=== PATIENT | male | born 1950 | race Caucasian/White ===

== ENCOUNTER → 2019-02-21 | Outpatient (CLI) | payer MEDICARE, SELFPAY ==
[2019-02-20 15:17] VITALS: BMI 28.0
[2019-02-21 09:44] LABS: Hematocrit 40.3 % (40-54); Hemoglobin 13.3 g/dl (13.0-16.5); Mean Corpuscular Hgb 30.9 pg (27.0-32.0); Mean Corpuscular Volume 93.5 fL (80-94); Mean Platelet Vol. 9.9 fl (6.2-12.0); Platelet Count 218 K/mm3 (150-450); RBC Distribution Width CV 13.3 % (11.6-14.6); RBC Distribution Width SD 45.5 fl (35.1-43.9); Red Blood Count 4.31 M/mm3 (4.6-6.2); White Blood Count 6.9 K/mm3 (4.4-11.0)
[2019-02-21 09:46] LABS: Scan Indicated on CBC? Y/N NO
[2019-02-21 09:51] LABS: International Normalized Ratio 1.7; Prothrombin Time (Protime)PT. 20.2 SECONDS (11.7-14.9)
[2019-02-21 10:14] LABS: BUN 14 mg/dL (7-18); BUN/Creat Ratio 15.3 RATIO (10-20); Creatinine, Serum 0.91 mg/dL (0.70-1.30); EST Glomerular Filtration Rate 87 mL/min (>60); Est Glom Filt Rate - Afr Amer 105 mL/min (>60); Glucose 154 mg/dL (74-106)
[2019-02-21 10:15] LABS: AST(SGOT) 18 U/L (15-37); Alanine Aminotransfer ALT/SGPT 30 U/L (16-61); Alkaline Phosphatase 72 U/L (45-117); Anion Gap 7 (5-15); Bilirubin, Direct 0.19 mg/dL (0.00-0.30); Calcium,Total 8.4 mg/dL (8.5-10.1); Chloride 105 mmol/L (98-107); Cholesterol 110 mg/dL (200); High Density Lipoprotein 44 mg/dL; Potassium 3.4 mmol/L (3.5-5.1); Sodium Level 144 mmol/L (136-145); T4 Total, Thyroxin 10.2 ug/dL (4.5-12.1); Thyroid Stim Hormone (TSH) 1.37 uIU/mL (0.358-3.74); Triglycerides 58 mg/dL; Very Low Density Lipoprotein 12 mg/dL (5-40)
== END | disposition home or self-care (01) ==
PROVIDERS: Family Provider Family Medicine; PCP Family Medicine; Referring Provider Internal Medicine Cardiovascular Disease; Visit Provider Internal Medicine Cardiovascular Disease
DX: Z01.810 Encounter for preprocedural cardiovascular examination (principal); I51.89 Other ill-defined heart diseases; R06.09 Other forms of dyspnea; R06.01 Orthopnea; R06.02 Shortness of breath; E78.5 Hyperlipidemia, unspecified; I34.0 Nonrheumatic mitral (valve) insufficiency; R07.9 Chest pain, unspecified
CPT/HCPCS: 36415; 80048; 80061; 80076; 84436; 84443; 85027; 85610

== ENCOUNTER → 2019-03-13 | Outpatient (CLI) | payer MEDICARE, SELFPAY ==
[2019-02-20 15:17] VITALS: BMI 28.0
[2019-03-12 09:33] VITALS: BMI 26.6
--- NOTE | 2019-03-15 08:08 | PFT ---
INTRODUCTION: The patient is a 69-year-old male that presents for pulmonary function studies secondary to a diagnosis of shortness of breath. Respiratory therapy reports good patient effort. Bronchodilators were used during testing. INTERPRETATION: Forced expiration spirometry demonstrates the presence of a severe large airways obstructive ventilatory defect. There was a significant response to aerosolized bronchodilators noted, based upon change in FEV1. Spirograms are of good quality and do not plateau indicating slow emptying of the lungs. Body plethysmography was performed and reveals a decreased TLC to 4.35 L, 62% of predicted, indicative of a moderate restrictive ventilatory impairment. The remainder of the lung volumes are symmetrically reduced. Diffusing capacity by single breath CO is mildly reduced at 63% of predicted. IMPRESSION: Partially reversible severe mixed ventilatory defect with an associated mild reduction in diffusing capacity. There are no previous pulmonary function studies available for comparison.
== END | disposition home or self-care (01) ==
LOC: PSN 07:17
PROVIDERS: Family Provider Family Medicine; PCP Family Medicine; Referring Provider Internal Medicine Cardiovascular Disease; Visit Provider Internal Medicine Cardiovascular Disease
DX: Z01.810 Encounter for preprocedural cardiovascular examination (principal); R06.02 Shortness of breath; R06.09 Other forms of dyspnea; J44.9 Chronic obstructive pulmonary disease, unspecified; I50.20 Unspecified systolic (congestive) heart failure; I51.89 Other ill-defined heart diseases
CPT/HCPCS: 94060; 94726; 94729

== ENCOUNTER 2019-03-14 06:52 | Day surgery (SDC) | payer MEDICARE, SELFPAY ==
[2019-02-20 15:17] VITALS: BMI 28.0
--- NOTE | 2019-03-12 10:36 | RAD_ITS ---
STUDY: X-RAY CHEST REASON FOR EXAM: Male, 69 years old. Preop, decreased ejection fraction, shortness of breath, mitral insufficiency TECHNIQUE: PA and lateral views of the chest. COMPARISON: None. FINDINGS: The lungs are clear and expanded. There are [id number] bilateral effusions, right side larger than left. Normal size heart. There is a right infrahilar density measuring 4.7 x 3.4 cm. Normal visualized pulmonary arteries. There are calcified plaques of the thoracic aorta. There are diffuse degenerative changes of the visualized thoracic spine. Normal visualized ribs, clavicles, and shoulders. There is no demonstrated abnormality of the visualized soft tissue structures of the upper abdomen. RAD/Chest PA and Lateral IMPRESSION: Small to moderate bilateral effusions, right side larger than left. Right infrahilar density measuring 4.7 x 3.4 cm which may represent vascular structure. Mass cannot be excluded. Comparison with any previous chest films is recommended at this time. Calcified plaques of the thoracic aorta. Degenerative changes of the thoracic spine. Electronically Signed: Gabo Shaw MD at 16:51 EDT , Service support ,
[2019-03-13 08:48] VITALS: BMI 28.0
[2019-03-13 13:28] VITALS: BMI 26.6
[2019-03-14 07:10] LABS: Prothrombin Time Fingerstick 15.1 SEC (11.9-14.4)
--- NOTE | 2019-03-14 10:52 | CL.D_ITS ---
Patient Name: JENY SANTOYO Study Date: 03/14/2019 Performing: Scott Gar MD Ht: 72.04 inches 183 cm : 1950 Wt: 207.23 lbs 94 kg Age: 69 Gender: male BSA: 2.16 PROCEDURE(S) PERFORMED [id number]/LHC/COR/LV CLINICAL PROFILE AND INDICATIONS Indications: Suspected CAD, LV Dysfunction Heart Failure: NYHA Class: 1, Newly Diagnosed: No, Heart Failure Type: Systolic Stress/Imaging Date: 06/29/2004 CAD Presentations: Unstable angina. Comorbidities/Risk Factors: Current/Recent Smoker (< 1year) Hypertension Dyslipidemia Prior CHF Chronic Lung Disease CONCLUSIONS Normal coronary arteries Global LV systolic dysfunction- Severe LVEF: by LV gram 10 % Cardiomyopathy: Non-ischemic Right heart pressures - moderately elevated RECOMMENDATIONS Management as per referring [facility] Pt is at moderate to high risk for sonido surgery. Restart xarelto on Consider starting amiodarone after sonido surgery and attempting DCCV. Manual sheath removal. Etoh and tob cessation. DESCRIPTION OF PROCEDURE The patient arrived to the procedure lab. The risks and benefits of the procedure as well as a full d escription of our services here and current unavailability of surgical backup were fully explained to the patient and/or their significant other prior to the catheterization. The Timeout was completed, verifying the correct patient and procedure. The patient's procedural site was prepped and draped in the usual fashion. Local anesthetic was given subcutaneously to right groin region with Lidocaine 2%. Using a modified Seldinger technique, arterial access was obtained via the right femoral artery, a 4 Fr sheath was inserted Venous access was obtained via the right femoral vein, a 7Fr sheath was insert ed. A 7Fr thermal dilution catheter was inserted and right heart pressures were recorded, it was then advanced to PA position for cardiac outputs. Thermal dilution cardiac outputs were then recorded. O2 saturations were then obtained. Simultaneous pressures were then recorded. The Thermal dilution catheter was then removed. Left Ventriculography was performed in STARR projection using a 4 F r. Pigtail catheter. LV to AO pullback pressures were then recorded. Left Coronary Artery selective a ngiography was performed in multiple views using a 4 Fr. JL5 catheter. Right Coronary Artery selectiv e angiography was then performed in multiple views using a 4 Fr. 3DRC catheter.The arterial sheath wa s pulled and manual compression applied until hemostasis is achieved. CORONARY ANGIOGRAPHY DOMINANCE: Right Dominant LEFT HEART ASSESSMENT Left Ventricular Ejection Fraction: by LV Gram 10 % Global Hypokinesis - Severe LVEDP: 22 mmHg Depressed Left Ventricular systolic function RIGHT HEART ASSESSMENT Thermal CO: 5.34 Thermal CI: 2.47 Asim CO: 3.69 Asim CI: 1.71 PW: /22 16 PA: 44/15 25 RV: 40/-7 -1 RA: /1 0 PVR: 135 Right Heart pressures - elevated Pulmonary Hypertension Moderate LEFT MAIN: Angiographically normal LEFT ANTERIOR DESCENDING ARTERY: Angiographically normal CIRCUMFLEX ARTERY: Angiographically normal RIGHT CORONARY ARTERY: Angiographically normal COMPLICATIONS No Complications PROCEDURE MEDICATIONS Oxygen: 2 L/min via nasal cannula SUMMARY OF HEMODYNAMIC DATA Time AIR REST ECG 08:09:06 RA /1 (0) 10:16:02 RV 40/-7, -1 10:16:17 PA 44/15 (25) PA 10:22:57 PW /22 (16) PV 10:23:09 LV 133/-3, 12 10:27:18 LV 125/-1, 22 10:27:25 LV 128/-2, 21 10:27:58 PW /32 (26) 10:27:58 LV 131/-1, 20 10:28:44 PA 49/29 (38) 10:28:44 LV 132/-2, 21 10:32:14 RV 48/1, 5 10:32:14 LV 132/8, 26 10:33:19 LV 132/-2, 23 10:33:26 LVp 134/-6, 23 10:33:31 AOp 132/90 (106) 10:33:36 AO 114/87 (100) SA 10:36:09 Type SV CO (l/m) CI (l/m/ HR Time AIR REST Thermal 54.50 5.34 2.47 98 08:09:06 Asim 37.70 3.69 1.71 98 08:09:06 Label % O2 Pres/Loc Time AIR REST AO 92 PV 10:37:57 PA 49 PA 10:38:05 Signed By Scott Gar MD On 03/14/2019 10:51:47 Scott Gar MD
[2019-03-14 14:16] LABS: Base Excess 2 mmol/L (-2 to +2); Bicarbonate 25.7 mmol/L (22-26); Blood Gas Specimen Type ART; PO2 60 mmHG (75-100); SO2 92 % (95-99); Total Carbon Dioxide 27 mmol/L; pCO2 36.4 mmHg (35-45); pH 7.46 (7.35-7.45)
[2019-03-14 14:16] LABS: Blood Gas Specimen Type VEN; VBG BASE EXCESS 4 mmol/L (-1.0-3.5); VBG Bicarbonate 29 mmol/L (22-26); VBG Oxygen Content 30 mmol/L (23-33); VBG PO2 26 mmHg (25-40); VBG SO2 49 % (50-70); VBG pCO2 44.3 mmHg (41-51); VBG pH 7.42 (7.32-7.42)
[2019-03-14 14:16] LABS: Blood Gas Specimen Type VEN; VBG BASE EXCESS 4 mmol/L (-1.0-3.5); VBG Bicarbonate 28 mmol/L (22-26); VBG Oxygen Content 30 mmol/L (23-33); VBG PO2 33 mmHg (25-40); VBG SO2 64 % (50-70); VBG pCO2 43.1 mmHg (41-51); VBG pH 7.43 (7.32-7.42)
== END 2019-03-14 15:05 | disposition home or self-care (01) ==
PROVIDERS: Family Provider Family Medicine; PCP Family Medicine; Referring Provider Internal Medicine Cardiovascular Disease; Visit Provider Internal Medicine Cardiovascular Disease
DX: I42.9 Cardiomyopathy, unspecified (principal); I48.91 Unspecified atrial fibrillation; E78.5 Hyperlipidemia, unspecified; J44.9 Chronic obstructive pulmonary disease, unspecified; I11.0 Hypertensive heart disease with heart failure; I50.21 Acute systolic (congestive) heart failure; M19.90 Unspecified osteoarthritis, unspecified site; F17.210 Nicotine dependence, cigarettes, uncomplicated; Z79.899 Other long term (current) drug therapy; Z79.02 Long term (current) use of antithrombotics/antiplatelets
CPT/HCPCS: 36416; 71046; 82803; 85610; 93460; J7040; C1751; C1769; C1894; Q9967

== ENCOUNTER → 2019-04-02 | Outpatient (CLI) | payer MEDICARE, SELFPAY ==
[2019-03-13 13:28] VITALS: BMI 26.6
--- NOTE | 2019-04-02 08:00 | CT_ITS ---
STUDY: CT CHEST WITH CONTRAST REASON FOR EXAM: Male, 69 years old. Right hilar density RADIATION DOSAGE (If Supplied By Facility): CTDIvol = ( 15.58 ) mGy, DLP = ( 550.10 ) mGycm TECHNIQUE: Transaxial imaging was performed following intravenous administration of 100 IV Isovue 300. Individualized dose optimization techniques were used for this CT. COMPARISON: Previous plain film FINDINGS: Lung windows show underlying emphysema with bleb formation noted in both upper lobes. There are free-flowing bilateral pleural effusions and bibasilar atelectasis larger on the right than the left and consolidation in the right lung base. There is no suspicious right hilar density the right pulmonary artery is mildly enlarged and I suspect that the previously noted density in the chest x-ray from earlier today represents superimposed vascular structures. The soft tissue windows show normal-appearing thyroid gland. There are scattered subcentimeter axillary and mediastinal lymph nodes. There are calcified coronary vessels. There is cardiomegaly. There is evidence of chronic bronchitis. Normal enhanced pulmonary arteries. Normal aorta arch and descending thoracic aorta. There are multi-level degenerative changes of the thoracic spine. Limited cuts through the upper abdomen show renal cysts. CT/Chest WITH Contrast IMPRESSION: Underlying emphysema with bleb formation in both upper lobes with bilateral free-flowing pleural effusions, right greater than left and bibasilar atelectasis also right greater than left. The right upper and lower lobe pulmonary arteries are prominent, and I suspect the density noted on plain film represents confluence of their shadows. There is no suspicious noncalcified mass Scattered subcentimeter axillary and mediastinal lymph nodes Chronic bronchitis Degenerative bony changes Electronically Signed: Markell Vega MD at 17:54 EDT , Service support ,
== END | disposition home or self-care (01) ==
LOC: CT 07:59
PROVIDERS: Family Provider Family Medicine; PCP Family Medicine; Referring Provider Nurse Practitioner Family; Visit Provider Nurse Practitioner Family
DX: J44.9 Chronic obstructive pulmonary disease, unspecified (principal); R06.09 Other forms of dyspnea; I42.9 Cardiomyopathy, unspecified
CPT/HCPCS: 71260; Q9967

== ENCOUNTER 2019-05-04 10:33 | Day surgery (SDC) | payer MEDICARE, SELFPAY ==
[2019-04-27 13:07] VITALS: BMI 27.9
[2019-05-01 12:19] LABS: Anion Gap 7 (5-15); BUN 19 mg/dL (7-18); BUN/Creat Ratio 22.5 RATIO (10-20); Calcium,Total 8.7 mg/dL (8.5-10.1); Chloride 104 mmol/L (98-107); Creatinine, Serum 0.84 mg/dL (0.70-1.30); EST Glomerular Filtration Rate 95 mL/min (>60); Est Glom Filt Rate - Afr Amer 115 mL/min (>60); Glucose 119 mg/dL (74-106); Potassium 3.1 mmol/L (3.5-5.1); Sodium Level 140 mmol/L (136-145)
[2019-05-04 10:56] LABS: Potassium 3.6 mmol/L (3.5-5.1)
--- NOTE | 2019-05-04 11:39 | CARDIOVERS_ITS ---
Cardioversion Cardioversion: Cardioversion: Patient was brought to the [facility] holding area in the fasting state. The risks/benefits of the procedure were thoroughly explained the patient and informed consent was obtained. Resting EKG: Atrial fibrillation with controlled ventricular response. Cardioversion: The defibrillator pads were placed in the AP position. With the assistance of Dr. Abraham Matos the patient was given several milligrams of IV etomidate. Once adequate sedation was obtained the patient received a single 200 J biphasic synchronized shock which converted him from atrial fibrillation to normal sinus rhythm. This was confirmed with EKG analysis. Patient spontaneously awoke and moved all 4 extremities. Conclusions: Successful DC cardioversion with a single 200 J biphasic shock. This converted him from atrial flutter relation to normal sinus rhythm. His rhythm remained durable. Would recommend continuing anticoagulation therapy going forward. If the patient reverts back to atrial fibrillation and since he is no longer drinking, I would recommend amiodarone assisted DC cardioversion in the future. If he remains in normal sinus rhythm, we will repeat echocardiogram in 4 months time to determine if his LV function has improved with cardiac resynchronization. No complications.
--- NOTE | 2019-05-04 11:42 | HP.PCM_ITS ---
Problem List (1) Pre-operative cardiovascular examination, left ventricular ejection fraction < 35% Status: Acute (2) Systolic congestive heart failure Status: Acute (3) Atrial fibrillation Status: Chronic Qualifiers: Comment: Pre-op ekg done @ [facility] showed new onset a-fib with RVR, HR 110 bpm on 12/04/2018. History and Physical Date of Admission: 05/04/19 [facility] [address] [place] [address] OFFICE VISIT Date of Service: 04/27/19 MR#:[id number]:[id number] Name: JENY SANTOYO [facility] #:[id number] : 1950 Provider: ELPIDIO Back Age/Sex: 69/M Location:[facility] [place] Status:Signed HPI HPI History of Present Illness Surgical H&P: Yes Details: Mr. Bartholomew is a very pleasant 69-year-old gentleman, nondiabetic, former heavy alcohol user, with previously known cardiomyopathy with an EF around 40% by echocardiogram. He was referred to us for preoperative stratification for shoulder surgery by Dr. Luna. He underwent echocardiogram on 01/16/2019 and noted to have ejection fraction 20-25% and RVSP of 29 mmHg. In addition he has a history of atrial fibrillation diagnosed around November 2008 and is on anticoagulation therapy. Patient had a stress test on 07/03/2004 which demonstrated small focal anterior and inferior apical scar no reversible ischemia. 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 He used to drink about 12 pack/day for the past 50 years since being in [place]. 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 He has never had pulmonary function test. It is uncertain whether he has sleep apnea but he does snore excessively, and sometimes wakes himself up with his own snoring. He denies chest, arm, jaw, or neck discomfort. His exercise tolerance is stable. He denies symptoms of palpitations, lightheadedness, dizziness, near syncope, or syncopal episodes. He states states SOB with exercising. He denies claudication issues. He states bilateral lower extremity edema. He denies orthopnea, PND, blood in urine, blood in stool, or myalgia. He states fluctuating fatigue based on activity level. Intake Vital Signs 04/27/19 Height 6 ft 04/27/19 Weight: 206 lb 04/27/19 Body Mass Index (BMI) 27.9 04/27/19 Blood Pressure 124/86 H 04/27/19 Blood Pressure Location Lt brachial 04/27/19 Respiratory Rate 18 04/27/19 Pulse Rate 89 04/27/19 Pulse Source Monitor 04/27/19 Pulse Ox 96 Intake Visit Reasons: 3 wk f/up Systems Management Consultant Required: No Accompanied by: Is patient in pain?: No Allergies No Known Allergies Allergy (Verified 04/27/19 13:07) Medications benazepril 10 mg tablet 10 mg PO DAILY 02/14/19 [History Confirmed 04/27/19] duloxetine 60 mg capsule,delayed release 60 mg PO DAILY 02/14/19 [History Confirmed 04/27/19] gabapentin 300 mg capsule 600 mg PO TID cap 02/14/19 [History Confirmed 04/27/19] ibuprofen 200 mg capsule 200 mg PO Q6H PRN cap 02/14/19 [History Confirmed 04/27/19] lorazepam 0.5 mg tablet 0.5 mg PO Q6H PRN tab 02/14/19 [History Confirmed 04/27/19] lovastatin 40 mg tablet 40 mg PO DAILY 02/14/19 [History Confirmed 04/27/19] naproxen 500 mg tablet 500 mg PO BID PRN 02/14/19 [History Confirmed 04/27/19] spironolactone 25 mg tablet 25 mg PO DAILY 02/14/19 [History Confirmed 04/27/19] tamsulosin 0.4 mg capsule 0.8 mg PO DAILY cap 02/14/19 [History Confirmed 04/27/19] bumetanide 1 mg tablet 1 mg PO BID #60 tab 02/20/19 [Rx Confirmed 04/27/19] aspirin 81 mg tablet,delayed release 81 mg PO DAILY 04/06/19 [History Confirmed 04/27/19] bumetanide 2 mg tablet 2 mg PO BID #60 tab 04/27/19 [Rx Confirmed 04/27/19] carvedilol 6.25 mg tablet 6.25 mg PO BID #180 tab 04/27/19 [Rx] potassium chloride ER 20 mEq tablet,extended release 20 meq PO DAILY #90 tab 04/27/19 [Rx] rivaroxaban 20 mg tablet 20 mg PO DAILY #90 tab 04/27/19 [Rx] PFSH Medical History (Updated 04/06/19 @ 12:42 by JEANA ChanC) Pre-operative cardiovascular examination, left ventricular ejection fraction < 35% (Acute) Nonrheumatic mitral (valve) insufficiency (Chronic) Chest pain (Acute) Dyspnea on exertion (Chronic) Shortness of breath (Acute) Orthopnea (Acute) Edema (Acute) Atrial fibrillation (Chronic) Cardiomyopathy (Chronic) Systolic congestive heart failure (Acute) Fatigue (Acute) Tobacco use (Chronic) Hypertension (Chronic) COPD (chronic obstructive pulmonary disease) (Chronic) Hyperlipidemia (Chronic) Osteoarthritis (Chronic) Strain of left rotator cuff capsule (Chronic) Surgical History (Updated 03/14/19 @ 11:33 by Renetta Melgoza) History of bilateral inguinal hernia repair (Chronic) History of lumbar laminectomy (Chronic) Family History (Updated 02/14/19 @ 11:29 by Renetta Melgoza) Mother CVA (cerebral vascular accident) Hypertension Social History (Updated 04/27/19 @ 15:00 by JEANA ChanC) Smoking Status: Current every day smoker tobacco type: cigarettes ROS Const Const: Positive for fatigue; negative for weakness, body ache, fever(s) or chills ENT ENT: Negative for dizziness Cardio Chest Pain: No Palpitations: No Edema: Bilateral Muscle aches with walking: None Resp Respiratory: Negative for SOB with activity, SOB at rest, SOB orthopnea\SOB lying down or paroxysmal nocturnal dyspnea GI GI: Negative nausea, vomiting blood/hematemesis, bright, red blood in stools or black,tarry stools : Negative for hematuria or frequent nighttime urination/ nocturia Musc Musc: Negative for muscle aches/ myalgia Skin Skin: Negative non-healing lesions or rash Neuro Neuro: Negative for dizziness, lightheadedness, near syncope, syncope, or thostatic symptoms or weakness Endo Endo: Positive for fatigue Allergy Allergy/Immunology: Negative for rash Cardiology Exam Const Appearance: cooperative, healthy appearing and no acute distress Nutritional Appearance: well nourished and overweight Orientation: alert, oriented x3 and oriented to person Head Head: normal to inspection, normocephalic and atraumatic Ears: hearing grossly normal bilaterally Nose: external nose normal Face and Sinus: face symmetric Mouth: oral mucosae normal Eyes General: appearance normal, both eyes and all related structures Eyelids: eyelids normal Conjunctivae: conjunctivae normal Pupils: PERRL and normal by confrontation EOM: EOM intact bilaterally Neck Neck: normal visual inspection and full ROM Carotids: normal carotid upstroke Chest Chest inspection: normal inspection of the chest, symmetric chest movement and normal respiratory effort Auscultation: Bilateral: Diminished Lung Sounds Cardio Palpation: normal PMI Rate: regular rate Rhythm: irregular rhythm and irregularly irregular Heart sounds: S2 normal and murmur; negative rub or gallop Murmur: Grade 2/6 and holosystolic GI GI: normal to inspection Neuro General: alert, awake, oriented x3, CN's II-XI intact bilaterally and moves all extremities Skin Skin: no rashes or lesions noted Extremities Pulses: Normal: Right Posterior Tibial Pulse, Left Posterior Tibial Pulse, Right Radial Pulse, Left Radial Pulse Lower Extremity Edema: Trace: Bilateral Psych Psychological: normal affect Assessment & Plan 1. Other cardiomyopathy I42.8 Ef decreased from 47% in 2004 to 20-25% per echo 01/16/2019. Small focal anterior and inferior apical scar on stress test done 07/03/2004 @ [facility] Plan His heart catheterization from February 2019 showed ejection fraction of 60% and angiographically normal coronary arteries. His pulmonary pressure was noted to be elevated consistent with moderate pulmonary hypertension. He denies any symptoms today consistent with acute congestive heart failure. He will continue with current beta-cecilia, DANNY inhibitor, and diuretics. We will continue to monitor. He does acknowledge lower extremity edema. He is asked to increase his Bumex to 2 mg p.o. twice daily for 3 days and contact our office with an update. Orders Orders: Cardioversion Today Basic Metabolic Profile (BMP) Today 2. Chronic atrial fibrillation I48.2 Pre-op ekg done @ [facility] showed new onset a-fib with RVR, HR 110 bpm on 12/04/2018. Plan His EKG today in office shows atrial fibrillation rate of 84 bpm and a QTC of 432 with occasional ectopic ventricular beat. His most recent heart catheterization from February 2019 revealed ejection fraction of 10% and angiographically normal coronary arteries. His heart rate remains well controlled. He will proceed with cardioversion. Hopefully by maintaining a regular rhythm this will improve his overall LVEF. If there is is unsuccessful we can consider cardioversion with antiarrhythmic medication. And ultimately if this too is unsuccessful we can consider electrophysiology consult for ablation procedure. Orders Orders: 12 Lead EKG performed by [facility] Today Cardioversion Today Basic Metabolic Profile (BMP) Today 3. Hypertension, unspecified type I10 Plan Patient's blood pressure is well-controlled. We will continue to monitor. We will not make any medication regimen changes. 4. Hyperlipidemia, unspecified hyperlipidemia type E78.5 Plan Lipid panel from January 2019 showed cholesterol: 110, HDL: 44, LDL: 54, and triglycerides: 58. He will continue current statin medication. We will continue to monitor. 5. Dyspnea on exertion R06.09 Plan He continues to have shortness of breath on exertion. This is not worsening. Hopefully this also improves with diuretic adjustment. This may also improve with sinus rhythm. Orders Orders: Cardioversion Today Basic Metabolic Profile (BMP) Today Plan Detail Other Medications New: bumetanide 2 mg PO BID 60 tabs 11RF Additional Comments Patient will undergo cardioversion with Dr. Gar. Thank you for allowing us to participate in the patients plan of care, if you have any questions please do not hesitate to call. This note was generated using a voice recognition system and there may be incorrect words, spelling or punctuation that were not noted when reviewing the office note prior to saving. Coding Level of Care Code Off vis,est,level 4 Diagnoses Other cardiomyopathy I42.8 Cardiomyopathy type: other Chronic atrial fibrillation I48.2 Atrial fibrillation type: chronic Hypertension, unspecified type I10 Hypertension type: unspecified Hyperlipidemia, unspecified hyperlipidemia type E78.5 Hyperlipidemia type: unspecified Dyspnea on exertion R06.09 Coding Level of Care Code Off vis,est,level 4 Diagnoses Other cardiomyopathy I42.8 Cardiomyopathy type: other Chronic atrial fibrillation I48.2 Atrial fibrillation type: chronic Hypertension, unspecified type I10 Hypertension type: unspecified Hyperlipidemia, unspecified hyperlipidemia type E78.5 Hyperlipidemia type: unspecified Dyspnea on exertion R06.09 Supplemental Info Supplemental Information Heart catheterization from 03/14/2019: CORONARY ANGIOGRAPHY DOMINANCE: Right Dominant LEFT HEART ASSESSMENT Left Ventricular Ejection Fraction: by LV Gram 10 % Global Hypokinesis - Severe LVEDP: 22 mmHg Depressed Left Ventricular systolic function RIGHT HEART ASSESSMENT Thermal CO: 5.34 Thermal CI: 2.47 Asim CO: 3.69 Asim CI: 1.71 PW: /22 16 PA: 44/15 25 RV: 40/-7 -1 RA: / 0 PVR: 135 Right Heart pressures - elevated Pulmonary Hypertension Moderate LEFT MAIN: Angiographically normal LEFT ANTERIOR DESCENDING ARTERY: Angiographically normal CIRCUMFLEX ARTERY: Angiographically normal RIGHT CORONARY ARTERY: Angiographically normal Labs LDL Cholesterol 54 mg/dL (0-130) 02/21/19 HDL Cholesterol 44 mg/dL (40-) 02/21/19 Triglycerides 58 mg/dL (-199) 02/21/19 VLDL Cholesterol 12 mg/dL (5-40) 02/21/19 Diagnostics Electrocardiogram 04/27/19 Cardiac Catheterization 03/14/19 Chest X-Ray 03/12/19 Pulmonary Pulmonary Function Test 03/15/19 04/27/19 1500<Electronically signed by Pradeep MAGALLANES> Date Pradeep MAGALLANES Addendum: Patient arrived to [facility] in the fasting state. The risks/benefits of the DC cardioversion were thoroughly explained the patient and informed consent was obtained. The patient has had no interim change of his history and physical since her last visit. We will proceed with DC cardioversion. Cosigner Signature:Date (if applicable) CC: Reymundo Zavala MD ~
--- NOTE | 2019-05-04 12:21 | PCM.OP.PRO ---
Problem List (1) Edema Status: Acute (2) Orthopnea Status: Acute (3) Systolic congestive heart failure Status: Acute (4) Atrial fibrillation Status: Chronic Qualifiers: Comment: Pre-op ekg done @ [place] showed new onset a-fib with RVR, HR 110 bpm on 12/04/2018. (5) COPD (chronic obstructive pulmonary disease) Status: Chronic (6) Cardiomyopathy Status: Chronic Qualifiers: Cardiomyopathy type: other Qualified Code(s): I42.8 - Other cardiomyopathies Comment: Ef decreased from 47% in 2003 to 20-25% per echo 01/16/2019. Small focal anterior and inferior apical scar on stress test done 07/03/2004 @ [place] (7) Hyperlipidemia Status: Chronic Qualifiers: Hyperlipidemia type: unspecified Qualified Code(s): E78.5 - Hyperlipidemia, unspecified (8) Hypertension Status: Chronic Qualifiers: Hypertension type: unspecified Qualified Code(s): I10 - Essential (primary) hypertension (9) Nonrheumatic mitral (valve) insufficiency Status: Chronic Comment: Mild per echo 01/16/2019 (10) Tobacco use Status: Chronic Procedure Report Date of Procedure: 05/04/19 - Conscious sedation CONSCIOUS SEDATION REPORT BRIEF HISTORY OF PRESENT ILLNESS: The patient is a 69-year-old male who presented to [facility] for an elective outpatient cardioversion due to underlying atrial fibrillation. The patient reports no PO intake since midnight. The patient does not have a history of obstructive sleep apnea. The patient reports a history of smoking and COPD. The patient denies any recent constitutional symptoms such as fevers, chills, nausea or vomiting. The patient denies previous anesthetic complications. Patient's ejection fraction has been estimated at 20 to 40%. PHYSICAL EXAMINATION: VITAL SIGNS: Reviewed and were acceptable. GENERAL: The patient is a male, in no apparent distress, speaking in full sentences. HEENT: Normocephalic, atraumatic. Mucous membranes are moist and pink. Good mouth opening noted. Trachea is midline. Good neck mobility. MP II CHEST: S1, S2 irregularly irregular. No murmurs, rubs or gallops were noted. LUNGS: Clear to auscultation bilaterally without appreciable wheezes, rales or rhonchi. ABDOMEN: Soft, nontender, nondistended. Positive bowel sounds. EXTREMITIES: There is no clubbing, cyanosis. 2+ lower extremity edema appreciated. ASA Class: II DESCRIPTION OF PROCEDURE: After confirmation of informed consent, the patient's anesthesia plan was reviewed in detail. Etomidate was chosen. Risks and benefits were reviewed and the patient agreed to proceed. At 11:18 AM, the patient was given 4 mg of etomidate. The patient required a total of 10 mg of etomidate throughout the procedure to achieve appropriate sedation. The patient achieved an appropriate level of sedation and received 1 attempt synchronized cardioversion, at [address] Gar at the bedside. This was successful in achieving normal sinus rhythm. The patient was monitored until 11:30 AM, at which time the patient reached their baseline mental status and function. The patient tolerated the procedure well. COMPLICATIONS: None ESTIMATED BLOOD LOSS: None RECOMMENDATIONS: Okay to recover in usual fashion. Code Visit 9xxxx: Other Procedure See Report - 98375 -12 minutes conscious sedation
== END 2019-05-04 12:50 | disposition home or self-care (01) ==
PROVIDERS: Nurse Practitioner Family; Family Provider Family Medicine; PCP Family Medicine; Referring Provider Internal Medicine Cardiovascular Disease; Visit Provider Internal Medicine Cardiovascular Disease
DX: I48.2 Chronic atrial fibrillation (principal); I11.0 Hypertensive heart disease with heart failure; I50.21 Acute systolic (congestive) heart failure; J44.9 Chronic obstructive pulmonary disease, unspecified; E78.5 Hyperlipidemia, unspecified; I42.8 Other cardiomyopathies; Z79.899 Other long term (current) drug therapy; Z79.82 Long term (current) use of aspirin; M19.90 Unspecified osteoarthritis, unspecified site; F17.210 Nicotine dependence, cigarettes, uncomplicated
CPT/HCPCS: 36415; 80048; 84132; 92960; 93005; J7040

== ENCOUNTER → 2019-05-22 | Outpatient (CLI) | payer MEDICARE, SELFPAY ==
[2019-05-10 09:29] VITALS: BMI 27.1
[2019-05-22 09:30] VITALS: PULSE 72; PULSE 76; PULSE 82; PULSE 83; PULSE 86; PULSE 89; PULSE 91; O2SAT 93; O2SAT 95; O2SAT 96; O2SAT 97; O2SAT 98; O2SAT 99
--- NOTE | 2019-05-23 13:36 | PCM.PSN.6M ---
PSN 6 Minute Walk Test - 6 Minute Walk Test 6 Minute Walk Test: 6 Minute Walk Test PSN:6-Minute Walk Test Start: 05/22/19 10:43 Freq: Status: Active Protocol: [id number].6MINW Document 05/22/19 09:30 [facility] (Rec: 05/22/19 11:23 [facility] [id number]) 6 Minute Walk Test Date Performed 05/22/19 Time Performed 09:30 Height 6 ft Weight: 196 lb Weight in Pounds 196.[address]: Abraham Matos Assistive device used: Cane Pre-test Oxygen Delivery Method Room Air Pulse Ox (%) 98 Pulse Rate (60-100 beats/min) 76 Dyspnea Margret Scale (0-10) 0 Exertion Margret Scale (6-20) 6 1st minute Oxygen Delivery Method Room Air Pulse Ox (%) 96 Pulse Rate (60-100 beats/min) 82 Number of Rests Taken 0 2nd minute Oxygen Delivery Method Room Air Pulse Ox (%) 97 Pulse Rate (60-100 beats/min) 91 Number of Rests Taken 0 3rd minute Oxygen Delivery Method Room Air Pulse Ox (%) 95 Pulse Rate (60-100 beats/min) 86 Number of Rests Taken 0 4th minute Oxygen Delivery Method Room Air Pulse Ox (%) 96 Pulse Rate (60-100 beats/min) 83 Number of Rests Taken 0 5th minute Oxygen Delivery Method Room Air Pulse Ox (%) 93 Pulse Rate (60-100 beats/min) 89 Number of Rests Taken 0 6th minute Oxygen Delivery Method Room Air Pulse Ox (%) 96 Pulse Rate (60-100 beats/min) 89 Number of Rests Taken 0 Post-test Oxygen Delivery Method Room Air Pulse Ox (%) 99 Pulse Rate (60-100 beats/min) 72 Dyspnea Margret Scale (0-10) 0 Exertion Margret Scale (6-20) 12 Number of Rests Taken 0 Full Laps Walked 13 Partial Lap, Number of Tiles Walked 35 Total Distance Walked (ft) 802 - Interpretation Interpretation: The patient ambulated 802 feet over the course of 6 minutes beginning on room air with the use of a cane. Pretesting oxygen saturation was noted to be 98% on room air. With ambulation, the ariela oxygen saturation was 93%. This represents a significant exertional oxygen desaturation. - Recommendations Recommendations: There is no indication for the use of supplemental oxygen at this time. However, close interval follow-up is recommended, given the degree of oxygen desaturation noted during this study.
== END | disposition home or self-care (01) ==
LOC: PSN 09:21
PROVIDERS: Family Provider Family Medicine; PCP Family Medicine; Referring Provider Internal Medicine Critical Care Medicine; Visit Provider Internal Medicine Critical Care Medicine
DX: J90 Pleural effusion, not elsewhere classified (principal); J44.9 Chronic obstructive pulmonary disease, unspecified; I50.22 Chronic systolic (congestive) heart failure
CPT/HCPCS: 94618

== ENCOUNTER → 2019-06-06 | Outpatient (CLI) | payer MEDICARE, SELFPAY ==
[2019-05-10 09:29] VITALS: BMI 27.1
[2019-06-06 11:58] LABS: International Normalized Ratio 1.9; Prothrombin Time (Protime)PT. 21.4 SECONDS (11.7-14.9)
[2019-06-06 12:05] LABS: Anion Gap 6 (5-15); BUN 20 mg/dL (7-18); BUN/Creat Ratio 20.2 RATIO (10-20); Calcium,Total 8.9 mg/dL (8.5-10.1); Chloride 104 mmol/L (98-107); Creatinine, Serum 0.99 mg/dL (0.70-1.30); EST Glomerular Filtration Rate 79 mL/min (>60); Est Glom Filt Rate - Afr Amer 96 mL/min (>60); Glucose 97 mg/dL (74-106); Potassium 3.5 mmol/L (3.5-5.1); Sodium Level 140 mmol/L (136-145)
== END | disposition home or self-care (01) ==
LOC: LAB 10:48
PROVIDERS: Family Provider Family Medicine; PCP Family Medicine; Referring Provider Nurse Practitioner Family; Visit Provider Nurse Practitioner Family
DX: E78.5 Hyperlipidemia, unspecified (principal); I10 Essential (primary) hypertension; I42.9 Cardiomyopathy, unspecified; I48.91 Unspecified atrial fibrillation; I50.20 Unspecified systolic (congestive) heart failure; Z98.890 Other specified postprocedural states
CPT/HCPCS: 36415; 80048; 85610

== ENCOUNTER 2019-06-27 10:30 | Day surgery (SDC) | payer MEDICARE, SELFPAY ==
[2019-05-10 09:29] VITALS: BMI 27.1
--- NOTE | 2019-06-20 03:08 | HP_ITS ---
HPI HPI History of Present Illness Surgical H&P: Yes Details: Mr. Bartholomew is a very pleasant 69-year-old gentleman, nondiabetic, former heavy alcohol user, with previously known cardiomyopathy with an EF around 40% by echocardiogram. He was referred to us for preoperative stratification for shoulder surgery by Dr. Luna. He underwent echocardiogram on 01/16/2019 and noted to have ejection fraction 20-25% and RVSP of 29 mmHg. In addition he has a history of atrial fibrillation diagnosed around November 2008 and is on anticoagulation therapy. Patient had a stress test on 07/03/2004 which demonstrated small focal anterior and inferior apical scar no reversible ischemia. 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 He used to drink about 12 pack/day for the past 50 years since being in [place]. 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 He has never had pulmonary function test. It is uncertain whether he has sleep apnea but he does snore excessively, and sometimes wakes himself up with his own snoring. He denies chest, arm, jaw, or neck discomfort. His exercise tolerance is stable. He denies symptoms of palpitations, lightheadedness, dizziness, near syncope, or syncopal episodes. He states states SOB with exercising. He states his SOB is improving. He denies claudication issues. He states bilateral lower extremity edema with right greater than left. He denies orthopnea, PND, blood in urine, blood in stool, or myalgia. He states fluctuating fatigue based on activity level. Intake Vital Signs 06/20/19 Height 6 ft 06/20/19 Weight: 203 lb 06/20/19 Body Mass Index (BMI) 27.5 06/20/19 Blood Pressure 110/71 06/20/19 Blood Pressure Location Lt brachial 06/20/19 Respiratory Rate 18 06/20/19 Pulse Rate 79 06/20/19 Pulse Source Monitor 06/20/19 Pulse Ox 96 Intake Visit Reasons: update H & P X Ray Developer Required: No Accompanied by: none Is patient in pain?: No Allergies No Known Allergies Allergy (Verified 06/20/19 14:37) [facility] Medical History (Updated 06/20/19 @ 14:51 by ELPIDIO Chan) PTSD (post-traumatic stress disorder) (Chronic) Pleural effusion, right (Acute) COPD with asthma (Chronic) History of cardioversion (Acute 05/04/19) Pre-operative cardiovascular examination, left ventricular ejection fraction < 35% (Acute) Nonrheumatic mitral (valve) insufficiency (Chronic) Chest pain (Acute) Dyspnea on exertion (Chronic) Shortness of breath (Acute) Orthopnea (Acute) Edema (Acute) Atrial fibrillation (Chronic) Cardiomyopathy (Chronic) Systolic congestive heart failure (Chronic) Fatigue (Acute) Tobacco use (Chronic) Hypertension (Chronic) COPD (chronic obstructive pulmonary disease) (Chronic) Hyperlipidemia (Chronic) Osteoarthritis (Chronic) Strain of left rotator cuff capsule (Chronic) Surgical History (Updated 05/10/19 @ 09:39 by Viry Spencer) History of right and left heart catheterization (Resolved 03/14/19) History of bilateral inguinal hernia repair (Chronic) History of lumbar laminectomy (Chronic) Family History (Updated 02/14/19 @ 11:29 by Renetta Melgoza) Mother CVA (cerebral vascular accident) Hypertension Social History (Updated 06/20/19 @ 15:45 by Pradeep Back NP-C) household members: spouse pets and animals: Yes pets and animals: cat(s), dog(s) Smoking Status: Current every day smoker Tobacco: How many years used: 50 second hand exposure: Yes alcohol intake: current alcohol intake frequency: a few times a week substance use type: does not use ROS Const Const: Positive for fatigue; negative for weakness, body ache, fever(s) or chills ENT ENT: Negative for dizziness Cardio Chest Pain: No Palpitations: No Edema: Bilateral Muscle aches with walking: None Resp Respiratory: Negative for SOB with activity, SOB at rest, SOB orthopnea\SOB lying down or paroxysmal nocturnal dyspnea GI GI: Negative nausea, vomiting blood/hematemesis, bright, red blood in stools or black,tarry stools : Negative for hematuria or frequent nighttime urination/ nocturia Musc Musc: Negative for muscle aches/ myalgia Skin Skin: Negative non-healing lesions or rash Neuro Neuro: Negative for dizziness or weakness Endo Endo: Positive for fatigue Allergy Allergy/Immunology: Negative for rash Cardiology Exam Const Appearance: cooperative, healthy appearing and no acute distress Nutritional Appearance: well nourished and overweight Orientation: alert, oriented x3 and oriented to person Head Head: normal to inspection, normocephalic and atraumatic Ears: hearing grossly normal bilaterally Nose: external nose normal Face and Sinus: face symmetric Mouth: oral mucosae normal Eyes General: appearance normal, both eyes and all related structures Eyelids: eyelids normal Conjunctivae: conjunctivae normal Pupils: PERRL and normal by confrontation EOM: EOM intact bilaterally Neck Neck: normal visual inspection and full ROM Carotids: normal carotid upstroke Chest Chest inspection: normal inspection of the chest, symmetric chest movement and normal respiratory effort Auscultation: Bilateral: Diminished Lung Sounds Cardio Palpation: normal PMI Rate: regular rate Rhythm: irregular rhythm and irregularly irregular Heart sounds: S2 normal and murmur; negative rub or gallop Murmur: Grade 2/6 and holosystolic GI GI: normal to inspection Neuro General: alert, awake, oriented x3, CN's II-XI intact bilaterally and moves all extremities Skin Skin: no rashes or lesions noted Extremities Pulses: Normal: Right Posterior Tibial Pulse, Left Posterior Tibial Pulse, Right Radial Pulse, Left Radial Pulse Lower Extremity Edema: +1: Right, Trace: Left Psych Psychological: normal affect Assessment & Plan 1. Other cardiomyopathy I42.8 Ef decreased from 47% in 2004 to 20-25% per echo 01/16/2019. Small focal anterior and inferior apical scar on stress test done 07/03/2004 @ [place] Plan This is nonischemic as his most recent heart catheterization in February 2019 showed angiographically normal coronary arteries, ejection fraction of 10%, and moderate pulmonary hypertension. At that time this was attributed to elevated heart rate and rhythm. Hopefully, by maintaining sinus rhythm this will improve his overall heart function. We will repeat echocardiogram to evaluate response to upcoming cardioversion. Regardless, if his ejection fraction remains below 35% he will need evaluated for primary prevention ICD. 2. Chronic atrial fibrillation I48.2 Pre-op ekg done @ [place] showed new onset a-fib with RVR, HR 110 bpm on 12/04/2018; DCCV on 05/04/2019; Plan Patient underwent a cardioversion 05/04/2019. This was unsuccessful. He started amiodarone therapy. His EKG continues to show atrial fibrillation. We will reattempt a second cardioversion with antiarrhythmic medication. Hopefully, this improves his rhythm and thus his overall heart function improves. We will repeat echocardiogram to evaluate response to cardioversion. 3. Dyspnea on exertion R06.09 Plan The exact etiology of this is most likely multifactorial. His heart catheterization revealed angiographically normal coronary arteries. He does have moderate pulmonary hypertension. At this time, he will continue with beta- cecilia, DANNY inhibitor, and diuretics. Hopefully, maintaining sinus rhythm improved some of his shortness of breath. Plan Detail Other Orders Orders: 12 Lead EKG performed by [facility] Today I48.91 Additional Comments Patient will undergo cardioversion with Dr. Gar. Thank you for allowing us to participate in the patients plan of care, if you have any questions please do not hesitate to call. This note was generated using a voice recognition system and there may be incorrect words, spelling or punctuation that were not noted when reviewing the office note prior to saving. Coding Level of Care Code Off vis,est,level 3 Diagnoses Other cardiomyopathy I42.8 ??Cardiomyopathy type: other Chronic atrial fibrillation I48.2 ??Atrial fibrillation type: chronic Dyspnea on exertion R06.09 Coding Level of Care Code Off vis,est,level 3 Diagnoses Other cardiomyopathy I42.8 ??Cardiomyopathy type: other Chronic atrial fibrillation I48.2 ??Atrial fibrillation type: chronic Dyspnea on exertion R06.09 Supplemental Info Supplemental Information Heart catheterization from 03/14/2019: CORONARY ANGIOGRAPHY DOMINANCE: Right Dominant LEFT HEART ASSESSMENT Left Ventricular Ejection Fraction: by LV Gram 10 % Global Hypokinesis - Severe LVEDP: 22 mmHg Depressed Left Ventricular systolic function RIGHT HEART ASSESSMENT Thermal CO: 5.34 Thermal CI: 2.47 Asim CO: 3.69 Asim CI: 1.71 PW: /22 16 PA: 44/15 25 RV: 40/-7 -1 RA: /1 0 PVR: 135 Right Heart pressures - elevated Pulmonary Hypertension Moderate LEFT MAIN: Angiographically normal LEFT ANTERIOR DESCENDING ARTERY: Angiographically normal CIRCUMFLEX ARTERY: Angiographically normal RIGHT CORONARY ARTERY: Angiographically normal Labs LDL Cholesterol 54 mg/dL (0-130) 02/21/19 HDL Cholesterol 44 mg/dL (40-) 02/21/19 Triglycerides 58 mg/dL (-199) 02/21/19 VLDL Cholesterol 12 mg/dL (5-40) 02/21/19 Diagnostics Electrocardiogram 06/20/19 Cardiac Catheterization 03/14/19 Chest X-Ray 03/12/19 Pulmonary Pulmonary Function Test 03/15/19 Pulmonary Exercise Test 05/23/19 06/20/19 1545 <Electronically signed by Pradeep Lal> Date _ Pradeep [facility]
[2019-06-20 14:37] VITALS: BMI 27.5
[2019-06-27 11:25] VITALS: BMI 26.8
--- NOTE | 2019-06-27 13:41 | CARDIOVERS ---
Cardioversion Cardioversion: Patient was brought to the [facility] in the fasting state. Patient been anticoagulated for appropriate amount of time and had amiodarone added since his last DC cardioversion proximally 5 weeks ago. The risks/benefits of procedure were thoroughly spent the patient and informed consent was obtained. The defibrillator pads were placed in the AP position. With the assistance of Dr. Abraham Matos, patient was given a total of 6 mill grams of IV etomidate. Once adequate sedation was obtained, the patient received a single 200 J biphasic synchronized shock which converted the patient from atrial fibrillation with controlled ventricular response to normal sinus rhythm. Patient's rhythm remained durable, and the patient spontaneously awoke, move all 4 extremities and tolerated procedure well. Conclusions: Successful amiodarone assisted DC cardioversion with a single 200 J biphasic shock. No complications. Recommendations: The patient will continue on his current antihypertensive, amiodarone, and anticoagulation regimen and report to our office in 1 week's time for an EKG. If the patient remains in sinus rhythm we will continue amiodarone to assist with cardiac resynchronization. Patient taught procedure well no complications. Many thanks to Dr. Abraham Matos.
--- NOTE | 2019-06-27 14:41 | PRO.PCM_ITS ---
Problem List (1) Edema Status: Acute (2) Orthopnea Status: Acute (3) Pleural effusion, right Status: Acute (4) Atrial fibrillation Status: Chronic Qualifiers: Comment: Pre-op ekg done @ [place] showed new onset a-fib with RVR, HR 110 bpm on 12/04/2018; DCCV on 05/04/2019; (5) COPD with asthma Status: Chronic (6) Cardiomyopathy Status: Chronic Qualifiers: Comment: Ef decreased from 47% in 2003 to 20-25% per echo 01/16/2019. Small focal anterior and inferior apical scar on stress test done 07/03/2004 @ [place] (7) History of cardioversion Status: Chronic Comment: 05/04/2019, 06/27/2019 (8) Hyperlipidemia Status: Chronic Qualifiers: (9) Nonrheumatic mitral (valve) insufficiency Status: Chronic Comment: Mild per echo 01/16/2019 (10) PTSD (post-traumatic stress disorder) Status: Chronic (11) Systolic congestive heart failure Status: Chronic Qualifiers: (12) Tobacco use Status: Chronic Procedure Report Date of Procedure: 06/27/19 - Conscious sedation CONSCIOUS SEDATION REPORT BRIEF HISTORY OF PRESENT ILLNESS: The patient is a 69-year-old male who presented to [facility] for an elective outpatient cardioversion due to underlying atrial fibrillation. The patient reports no PO intake since midnight. The patient does not have a history of obstructive sleep apnea. The patient reports a history of smoking and COPD. The patient denies any recent constitutional symptoms such as fevers, chills, nausea or vomiting. The patient denies previous anesthetic c omplications. Patient's last known ejection fraction was 40%. Patient did have a previous cardioversion requiring 10 mg of etomidate. PHYSICAL EXAMINATION: VITAL SIGNS: Reviewed and were acceptable. GENERAL: The patient is a male, in no apparent distress, speaking in full sentences. HEENT: Normocephalic, atraumatic. Mucous membranes are moist and pink. Good mouth opening noted. Trachea is midline. Good neck mobility. MP III CHEST: S1, S2 irregularly irregular. No murmurs, rubs or gallops were noted. LUNGS: Clear to auscultation bilaterally without appreciable wheezes, rales or rhonchi. ABDOMEN: Soft, nontender, nondistended. Positive bowel sounds. EXTREMITIES: There is no clubbing, cyanosis or edema. ASA Class: II DESCRIPTION OF PROCEDURE: After confirmation of informed consent, the patient's anesthesia plan was reviewed in detail. Etomidate was chosen. Risks and benefits were reviewed and the patient agreed to proceed. At 1:31 PM, the patient was given 6 mg of etomidate. The patient achieved an appropriate level of sedation and received 1 attempt at synchronized cardioversion, at [address] Gar at the bedside. This was successful in achieving normal sinus rhythm. The patient was monitored until 1:36 PM, at which time the patient reached their baseline mental status and function. The patient tolerated the procedure well. COMPLICATIONS: None ESTIMATED BLOOD LOSS: None RECOMMENDATIONS: Okay to recover in usual fashion. Code Visit 9xxxx: Other Procedure See Report - [id number]
== END 2019-06-27 14:40 | disposition home or self-care (01) ==
PROVIDERS: Family Provider Family Medicine; PCP Family Medicine; Referring Provider Internal Medicine Cardiovascular Disease; Visit Provider Internal Medicine Cardiovascular Disease
DX: I48.20 Chronic atrial fibrillation, unspecified (principal); I42.8 Other cardiomyopathies; R06.00 Dyspnea, unspecified; R06.02 Shortness of breath; J44.9 Chronic obstructive pulmonary disease, unspecified; I11.0 Hypertensive heart disease with heart failure; I50.22 Chronic systolic (congestive) heart failure; M19.90 Unspecified osteoarthritis, unspecified site; F17.200 Nicotine dependence, unspecified, uncomplicated
CPT/HCPCS: 92960; 93005; J7040

== ENCOUNTER → 2019-07-24 | Outpatient (CLI) | payer MEDICARE, OTHER, SELFPAY ==
[2019-07-18 11:12] VITALS: BMI 27.9
--- NOTE | 2019-07-24 10:46 | ECHOCS_ITS ---
Reason For Study: Pre Op Procedure This was a 2D Doppler, Color Flow transthoracic echocardiogram. The study was technically difficult. Contrast injection was performed. Exam performed in department. Left Ventricle Mildly dilated left ventricle. The estimated ejection fraction is 40-45 %. Stage 2 diastolic dysfunction. There is mild to moderate global hypokinesis of the left ventricle. Right Ventricle Moderately dilated right ventricle. Normal systolic function. Atria The left atrium is severely enlarged. The right atrium is severely enlarged. Normal atrial septum. Bubble contrast study negative for right to left interatrial shunt. Mitral Valve The mitral valve is structurally normal. No prolapse or stenosis seen. Trivial mitral valve insufficiency. Tricuspid Valve Normal tricuspid valve. Trivial tricuspid valve insufficiency. Right ventricular systolic pressure estimated to be 32 mmHg. Aortic Valve Trisinus/trileaflet aortic valve. Mild diffuse aortic valve thickening. Pulmonic Valve Normal pulmonic valve. Great Vessels Normal aortic root. Normal arch. Normal inferior vena cava. Inferior vena cava collapse with sniff. Pericardium/Pleural No pericardial effusion. Medication 22 gauge I.V. with prn adaptor inserted into right arm. Diluted definity 2ml given slow IV push to enhance endocardial definition. Performed a rapid injection of agitated mix of 9 cc saline and 1cc air to assess for atrial septal defect. MMode/2D Measurements & Calculations LVIDd: 5.0 cm IVSd: 1.0 cm Ao root diam: 3.4 cm LVIDs: 3.9 cm LVPWd: 1.2 cm LA dimension: 4.2 cm RVDd: 4.9 cm FS: 21.8 % LAV(MOD-bp): 104.5 ml LVAd ap4: 54.0 cm2 SV(MOD-sp4): 121.5 ml LAV(MOD-bp) Indexed: 49.0 ml/m2 EDV(MOD-sp4): 236.1 ml LAV(MOD-sp2): 112.1 ml EDV(sp4-el): 246.5 ml LAV(MOD-sp4): 95.8 ml LVAs ap4: 33.0 cm2 ESV(MOD-sp4): 114.7 ml ESV(sp4-el): 118.9 ml EF(MOD-sp4): 51.4 % EF(sp4-el): 51.8 % SV(sp4-el): 127.6 ml LA A4 area: 28.2 cm2 RA A4 area: 28.1 cm2 Time Measurements MV dec time: 0.30 sec Doppler Measurements & Calculations MV E max yannick: 62.6 cm/sec Lat Peak E' Yannick: 7.7 cm/sec Med Peak E' Yannick: 5.4 cm/sec MV A max yannick: 63.0 cm/sec E/E' lat: 8.1 E/E' med: 11.7 MV E/A: 0.99 MV V2 max: 84.8 cm/sec MV P1/2t max yannick: 84.1 cm/sec Ao V2 max: 144.9 cm/sec MV max P.9 mmHg MV P1/2t: 106.6 msec Ao max P.5 mmHg MV V2 mean: 47.6 cm/sec Ao V2 mean: 90.4 cm/sec MV mean P.1 mmHg MV dec slope: 231.2 cm/sec2 Ao mean P.9 mmHg MV V2 VTI: 37.7 cm MVA(P1/2t): 2.1 cm2 Ao V2 VTI: 29.4 cm LV V1 max: 126.8 cm/sec PA V2 max: 94.4 cm/sec TR max yannick: 257.6 cm/sec LV V1 max P.4 mmHg TR max P.5 mmHg LV V1 mean P.9 mmHg LV V1 mean: 79.0 cm/sec LV V1 VTI: 28.0 cm Interpretation Summary Mildly dilated left ventricle. The estimated ejection fraction is 40-45 %. Stage 2 diastolic dysfunction. There is mild to moderate global hypokinesis of the left ventricle. Moderately dilated right ventricle. The left atrium is severely enlarged. The right atrium is severely enlarged. Trivial mitral valve insufficiency. Trivial tricuspid valve insufficiency. Right ventricular systolic pressure estimated to be 32 mmHg. Bubble contrast study negative for right to left interatrial shunt. The study was technically difficult. Contrast injection was performed. There is no comparison study available. Ordering Physician: Scott Gar Referring Physician: Reymundo Zavala Performed By: Anthony Sherman RCS
== END | disposition home or self-care (01) ==
LOC: CVS 10:45
PROVIDERS: Family Provider Family Medicine; PCP Family Medicine; Referring Provider Internal Medicine Cardiovascular Disease; Visit Provider Internal Medicine Cardiovascular Disease
DX: Z01.810 Encounter for preprocedural cardiovascular examination (principal); I42.9 Cardiomyopathy, unspecified; I50.20 Unspecified systolic (congestive) heart failure; I48.91 Unspecified atrial fibrillation; I51.89 Other ill-defined heart diseases
CPT/HCPCS: 93306; Q9957; A4216; C8929

== ENCOUNTER 2019-08-01 08:08 | Inpatient (IN) | payer MEDICARE, OTHER, SELFPAY ==
[2019-07-04 13:07] VITALS: BMI 26.8
[2019-07-18 11:12] VITALS: BP 118/66; PULSE 52; RESP 18; TEMP 36.6; O2SAT 98; BMI 27.9
[2019-07-18 13:29] LABS: Absolute Lymphocyte Count 1.28 X10^3/uL (0.83-4.51); Absolute Neutrophil Count 5.8 X10^3/uL (2.0-7.7); Basophil# 0.06 X10^3/uL; Basophil% 0.7 % (0-1); Eosinophil# 0.21 X10^3/uL; Eosinophils% 2.6 % (0-5); Hematocrit 36.8 % (40-54); Hemoglobin 12.1 g/dL (13.0-16.5); Lymphocyte # 1.28 X10^3/ul (4.0); Lymphocyte % 15.7 % (19-41); Mean Corp Hgb Conc 32.9 g/dL (32-36); Mean Corpuscular Hgb 31.9 pg (27.0-32.0); Mean Corpuscular Volume 97.1 fL (80-94); Mean Platelet Vol. 9.6 fl (6.2-12.0); Monocyte# 0.79 X10^3/uL; Monocyte% 9.7 % (0-10); NRBC Flagged by Analyzer 0 % (0-5); Neutrophil # 5.79 X10^3/uL (2.7-7.7); Neutrophil % 70.9 % (47-70); Platelet Count 204 K/mm3 (150-450); RBC Distribution Width CV 14.3 % (11.6-14.6); RBC Distribution Width SD 50.6 fl (35.1-43.9); Red Blood Count 3.79 M/mm3 (4.6-6.2); White Blood Count 8.2 K/mm3 (4.4-11.0)
--- NOTE | 2019-07-19 10:18 | PCM.HP.BLA ---
History and Physical Patient Name: Bryon Singh : 1950 From: MACK BURGER PA-C DATE OF SURGERY: 08/01/2019 SCHEDULED PROCEDURE: left total hip arthroplasty HISTORY OF PRESENT ILLNESS: Preoperative history and physical exam was performed on July 18, 2019. This is a 69-year-old male who presents for continued left hip pain. Patient does ambulate with a cane. He has had increased pain over the past 6 months. Pain can reach his high as a 9/10 with activity. Pain is increased with stairs, sitting, and walking. His pain is been intermittent, dull, aching, sharp, stabbing, sore. He has difficulty with activities of daily living including bathing/showering, getting dressed, housework, shopping, and leisure activities such as climbing ladders and working on items. Patient has fallen and tripped/stumbled due to the hip pain. Patient has had multiple back surgeries and currently is on gabapentin which does provide him with relief of the numbness and tingling. Patient does have start up pain. Pain does waken him at night. Patient has tried heat, ice and previous oxycodone with no relief in symptoms. He denies previous surgery on the left hip. Patient recently had a rotator cuff surgery canceled due to abnormal EKG. Patient did have a recent heart catheterization by Dr. Gar on March 14, 2019. Patient does have a history of atrial fibrillation and he is currently using Xarelto. We are obtaining surgical clearance from the physician/ophthalmologist. We are obtaining surgical clearance from her primary care physician. Patient currently denies any chest pain, shortness of breath, fevers chills, or recent infections. REVIEW OF SYSTEMS: ROS: Const: Reports weight change, but denies change in appetite and fever. CV: Denies chest pain, heart murmur and irregular heartbeat. Resp: Denies cough, pneumonia, shortness of breath, tuberculosis and wheezing. GI: Denies constipation, diarrhea, heartburn, nausea, rectal itching, bloody stools and vomiting. : Denies incontinence. Musculo: Reports pain, but denies leg swelling, trouble walking and weakness. Skin: Denies Raynaud's, history of shingles and tattoo. Neuro: Denies ambulatory dysfunction, dizziness, numbness/tingling and tremor. Psych: Reports stress, but denies anxiety and insomnia. Mickey/Lymph: Denies anemia, bleeding/bruising tendency and past transfusion. Reviewed, no changes. PAST MEDICAL HISTORY: Advance Care Plan: Other Directive, LIVING WILL PMH: Medical Problems: High Blood Pressure, Hypercholesterolemia, Mental Illness, A-Fib Accidents: None Surgical Hx: Hernia Repair - (1970) X2 & 2019 Laminectomy - L4 & L5, 1970 & 1979 Anesthesia Complications: None Assistive Devices: Glasses, Hearing Aid Reviewed, no changes. SOCIAL HISTORY: SH: Marital: .Occupation: Retired.Work Status: Retired.Hand Dominance: Right-handed. Personal Habits: Cigarette Use: Light tobacco smoker (10 or fewer cigarettes/day).Smokeless Tobacco: Never Used Smokeless Tobacco.E-Cigarette Use: Never used.Alcohol: Denies use.Drug Use: Denies Use.Enjoy Exercising: Daily. Reviewed, no changes. VITALS: Ht: 72 Wt: 199lb Wt k.266 BMI: 27.0 BP: 138/80 Pulse: 68 Resp: 16 T: 98.2 T: 36.8C ALLERGIES: No Known Drug Allergy MEDICATIONS: Gabapentin 300 mg 3 by mouth three times a day, Duloxetine HCL 60 mg 1po qday, Multivitamins 1po qday, Tamsulosin HCL 0.4 mg 1po qday, Benazepril HCL 10 mg 1po qday, Aspirin 325 mg 1po qday, Bumetanide 1 mg 1po bid, Spironolactone 25 mg 1po qday, Carvedilol 6.25 mg 1po bid, Xarelto 20 mg 1po qday, Potassium Chloride ER 20 Meq 1po qday, Ibuprofen 200 200 mg 1po qday, Trelegy Ellipta 100-62.5-25 mcg/Inh daily, Lovastatin 40 mg 1po qday, Amiodarone HCL 200 mg 1po qday, Naproxen 500 mg 1 by mouth twice a day as needed with food, Acetaminophen 325 mg 1-2 tablets every 4-6 hours for pain, Stool Softener 250 mg 1-3po qday, prn, Vitamin D3 29771 Unit 1po qday PRE-OP EXAM: General appearance:NORMAL Other: Eyes: Conjunctivae and lids: NORMAL Pupils: ERR Ears, Nose, Mouth, and Throat: NORMAL Other: Inspection of lips, teeth and gums: NORMAL Other: Neck: Examination of neck: no masses noted. Respiratory: Assessment of respiratory effort: NORMAL Other: Auscultation of lungs: clear to auscultation no wheezes, rhonchi or rales. Cardiovascular: Auscultation of heart: regular rate and rhythm, no murmurs, gallops or rubs. Gastrointestinal: Exam of abdomen: soft, nontender, nondistended bowel sounds present. PHYSICAL EXAMINATION: Patient currently walks with an antalgic gait. He does require the use of a cane. There is atrophy of the quadriceps. Patient does have tenderness to palpation of lateral left hip. Range of motion left hip: A degree flexion contracture, 80 flexion, internal rotation neutral, external rotation 10. Positive log roll. Patient's left lower extremity is 6 mm shorter. Sensation intact to light touch. IMAGING STUDIES: X-rays of the left hip reveal severe joint space narrowing with [id number] contact, bone cysts, subchondral sclerosis, flattening of the acetabulum and collapse of the femoral head consistent with avascular necrosis. IMPRESSION: 1. Severe left hip osteoarthritis 2. Hypertension 3. History of atrial fibrillation: Currently on Xarelto 4. Hypercholesterolemia PLAN: Left total hip arthroplasty did discuss and review with the patient all treatment options including surgical versus nonsurgical options. Patient does wish to proceed with the above-stated procedure. Potential risks, benefits, and complications of the procedure were discussed in detail including but not limited to , infection, nerve and blood vessel damage, persistent pain, numbness, tingling, paresthesias, blood clot, pulmonary embolism, and requirement for possible further surgery. The patient expressed full understanding and has no further questions for the doctor. Patient does agree to proceed with the above-stated procedure and has signed the surgery consent form. This dictation was created using voice recognition software. Phonetic and/or grammatical errors may exist. ___ I have re-examined the patient. There are no clinical changes since date of exam. ___ See progress notes for changes. ___ Dictated on admission Date: Time: Signature:
[2019-08-01] VITALS (12 sets, daily range): BP systolic 125–157; BP diastolic 60–96; PULSE 50–72; RESP 16–18; TEMP 36–36.9; O2SAT 95–100; BMI 27.9
[2019-08-01 09:06] LABS: Bedside Glucose 105 mg/dL (70-110)
--- NOTE | 2019-08-01 09:07 | RAD_ITS ---
STUDY: X-RAY - PELVIS AND LEFT HIP REASON FOR EXAM: Male, 69 years old. Left hip replacement. TECHNIQUE: 2 views of the pelvis and hip. COMPARISON: Comparison is made with prior examination done earlier in the day. FINDINGS: The patient is status post left hip replacement. There is good alignment. Postoperative soft tissue changes. RAD/Hip Min 2 Views (Portable) IMPRESSION: Status post left hip replacement. There is good alignment. Postoperative soft tissue changes. Electronically Signed: Ja Quezada, at 14:57 EST , Service support ,
[2019-08-01] MEDS: Lactated Ringers 1,000 ML 100 ML IV ×3 (09:14→15:09)
[2019-08-01] MEDS: Acetaminophen 500 MG Tablet 1000 MG PO ×2 (09:15→20:21)
[2019-08-01] MEDS: Magnesium Sulfate 4gm/100mL 4 GM/100 ML IV.SOLN. IV (09:15)
[2019-08-01] MEDS: Gabapentin 600 MG Tablet PO (09:15)
[2019-08-01] MEDS: Scopolamine 1mg/72hr Patch 1 PATCH TD (09:17)
--- NOTE | 2019-08-01 10:15 | RAD_ITS ---
STUDY: X-RAY - PELVIS AND LEFT HIP REASON FOR EXAM: Male, 69 years old. Hip replacement. TECHNIQUE: Single intraoperative view of the pelvis and hip. COMPARISON: None. FINDINGS: The patient is status post left hip replacement. There is good alignment. RAD/Hip 1 view with Pelvis IMPRESSION: Status post left hip replacement. There is good alignment. Electronically Signed: Ja Quezada, at 14:40 EST , Service support ,
[2019-08-01] MEDS: Cefazolin 2 GM in 0.9% Normal Saline 100 ML IV (10:52)
--- NOTE | 2019-08-01 12:20 | PCM.OPRPT ---
Report of Operation Date of Procedure: 08/01/19 Pre-Operative Diagnosis: Left hip primary osteoarthritis Post-Operative Diagnosis: Left hip primary Osteoarthritis Surgery/Procedure Performed:: Left minimally invasive direct anterior total hip replacement Description of Surgical Findings:: Stable hip with equal leg lengths computer applications engineer: Clair Haji Type of Anesthesia:: Spinal Anesthesiologist: Oz Patel Special Medications: 2 g Ancef, 1 g TXA at incision, 1 g TXA closure, 10 mg Decadron, joint cocktail (5 mg Duramorph, 30 mL of 0.5% Ropivicaine, 1000 units of epinephrine, 30 mg of Toradol) Specimen's removed: Bony cuts Estimated Blood Loss (mL): 150 mL Fluids Replaced: 1000 mL crystalloid Description of Procedure: Components used: 1. Accolade 2 Clara femoral stem size 6 127? 2. [place] trident 2 acetabular shell size 56 mm 3. [place] X3 polyethylene F 4. Clara Biolox delta 36mm, +5mm femoral head Brief history operative indications: 69 yo M who failed conservative measures for their hip osteoarthritis. X-rays were consistent with osteoarthritis including joint space narrowing, osteophyte formation and subchondral cysts. Total hip replacement was discussed with the patient with risks and benefits including but not limited to blood loss, DVTs, PEs, neurovascular damage, dislocation, general risks of anesthesia including loss of life. Patient demonstrated an understanding medical clearance is obtained the patient was consented for surgery. Procedure: On the date of procedure the patient's L hip was marked in the preoperative area. Patient was then taken back to the operating room where anesthesia assumed control of the C-spine and airway and administered anesthetic. Patient was transferred to the operating table and placed in the supine position. The hips were placed at the break of the bed and a sacral bump was placed. The L lower extremity was then prepped out in a sterile fashion using chlorhexidine while the surgeon scrubbed. The PA was vital in the positioning of the patient. Upon reentering the room the L lower extremity was draped in the standard orthopedic fashion and the incision was marked. A timeout was called and everyone agreed upon the side, the site, the procedure be performed, antibody given, and patient's identity. At this time incision was made through skin, subcutaneous tissue, and fat down to fascia. The fascia was then incised and the TFL was retracted laterally. A retractor was placed on the lateral border of the femoral neck. Attention was directed to the inferior portion of the approach and all crossing vessels were identified and appropriately coagulated. A retractor was then placed on the medial portion of the femoral neck. The anterior capsule was then cleared of all soft tissue and then H shaped capsulotomy was made. The retractors were then placed inside the capsule. The femoral neck was identified and a cleanup cut was made. At this time a power corkscrew was used to remove the femoral head. Attention was then turned toward the acetabulum where the soft tissues were appropriately retracted and the acetabulum was sequentially reamed to 56 mm. A 56 mm cup was then selected and impacted into place. Acetabular liner was impacted into place and locking mechanism was verified. The position of the acetabular cup was then verified under live fluoroscopy. Attention was then turned to the femur. Soft tissue releases on the medial and lateral femoral neck were appropriately done, the leg was externally rotated and lateralized. A Hoffman retractor was placed medially and proximally to the greater trochanter this allowed appropriate visualization and exposure of the femoral canal. Rongeour was then used to remove excess lateral bone. A canal finder and entry broach were used to open the proximal canal. Once we verified we were down the femoral canal we subsequently broached up to a size 6 femur. The appropriate neck was placed in the previously selected head was trialed with a 5 mm neck. Traction was pulled and the hip was reduced with internal rotation. Once it was appropriately reduced and stability was checked. There was minimal shuck, equal leg lengths and appropriate stability with hyperextension and external rotation as well as with 90? flexion and internal rotation. Fluoroscopy was then also used to verify the position of the components and leg lengths using the contralateral side for comparison. The trial components were then dislocated the proximal femur was again exposed and the components were removed from the wound. The final components were verified and opened. The wound was copiously irrigated out with normal saline. The acetabulum was checked for any residual debris. The final components were placed and impacted. Traction and internal rotation were again used to reduce the hip. After adequate reduction the hip remained stable with appropriate leg lengths. The final components were once again checked with live fluoroscopy and were found to be satisfactory. The wound was then copiously irrigated with normal saline once more, and hemostasis was obtained. Closure was then done using #1 Vicryl runner to close the fascia. A 2-0 vicryl interuppted sutures were used to close the subcutaneous skin. A 3-0 Monocryl and Steri-Strips were used for final skin closure. A Silverlon dressing was placed. Patient was awakened by anesthesia and transferred to the [facility]. Patient was then transferred to the PACU for recovery. Postoperative plan: Patient will get 24 hours postop antibiotics. Patient will get in-house physical therapy and will be weight-bear as tolerated. Patient will follow up in office in 2 weeks for a wound check and x-rays. Grafts/Implants Used: [place] - Complications No intraoperative complications - Admit VTE Documentation VTE Present on Admission: Yes VTE Mechan Device Prophylaxis: SCD's, Thigh High CJ Hose VTE Pharm Prophylaxis ordered?: Yes
--- NOTE | 2019-08-01 16:26 | PCM.CONS.GEN ---
Problem List (1) Osteoarthritis Status: Chronic Qualifiers: Osteoarthritis location: hip Osteoarthritis type: unspecified Laterality: left Qualified Code(s): M16.12 - Unilateral primary osteoarthritis, left hip (2) GERD (gastroesophageal reflux disease) Status: Chronic Qualifiers: Esophagitis presence: esophagitis presence not specified Qualified Code(s): K21.9 - Gastro-esophageal reflux disease without esophagitis (3) PTSD (post-traumatic stress disorder) Status: Chronic (4) COPD with asthma Status: Chronic (5) Atrial fibrillation Status: Chronic Qualifiers: Comment: Pre-op ekg done @ [facility] showed new onset a-fib with RVR, HR 110 bpm on 12/04/2018; DCCV on 05/04/2019; (6) Cardiomyopathy Status: Chronic Qualifiers: Comment: Ef decreased from 47% in 2003 to 20-25% per echo 01/16/2019. Small focal anterior and inferior apical scar on stress test done 07/03/2004 @ [facility] (7) Systolic congestive heart failure Status: Chronic Qualifiers: Heart failure chronicity: chronic (8) Tobacco use Status: Chronic (9) Hypertension Status: Chronic Qualifiers: Hypertension type: unspecified Qualified Code(s): I10 - Essential (primary) hypertension (10) Hyperlipidemia Status: Chronic Qualifiers: Reason for Consult Date of Consultation: 08/01/19 Reason for Consultation: Medical management History of Present Illness: The patient is a 69 y/o M w/ PMHx: Chronic COPD/Asthma, Tobacco use, HTN, HLD, Cardiomyopathy unclear type and Systolic CHF, GERD, PAF who presents to the [facility] on 08/01/19 for planned L THR per Dr. Barrett secondary to failed outpatient conservative interventions. Upon evaluation of patient he seated upright at the bed using a walker with physical and Occupational Therapy, notes pain controlled, denies any perioperative events. Discussed patient history and he states that he has had cardioversion in the past. He states that he is evaluated recently by his lozenge maker helper and doing well and cleared for operative intervention. Hospitalist medicine consultation requested per orthopedic surgery. Past Medical History Past Medical History (Chronic Problems): Chronic Problems (Last Updated 06/27/19 @ 14:26 by Renetta Melgoza) Osteoarthritis (Chronic) GERD (gastroesophageal reflux disease) (Chronic) PTSD (post-traumatic stress disorder) (Chronic) COPD with asthma (Chronic) History of cardioversion (Chronic 06/27/19) 05/04/2019, 06/27/2019 Nonrheumatic mitral (valve) insufficiency (Chronic) Mild per echo 01/16/2019 Dyspnea on exertion (Chronic) Atrial fibrillation (Chronic) Pre-op ekg done @ [facility] showed new onset a-fib with RVR, HR 110 bpm on 12/04/2018; DCCV on 05/04/2019; Cardiomyopathy (Chronic) Ef decreased from 47% in 2004 to 20-25% per echo 01/16/2019. Small focal anterior and inferior apical scar on stress test done 07/03/2004 @ [facility] Systolic congestive heart failure (Chronic) Tobacco use (Chronic) Hypertension (Chronic) COPD (chronic obstructive pulmonary disease) (Chronic) Hyperlipidemia (Chronic) Medical History: Medical History (Last Updated 06/27/19 @ 14:26 by Renetta Melgoza) PTSD (post-traumatic stress disorder) (Chronic) F43.10 Pleural effusion, right (Acute) J90 COPD with asthma (Chronic) J44.9 History of cardioversion (Chronic) Onset Date: 06/27/19 Z98.890 05/04/2019, 06/27/2019 Pre-operative cardiovascular examination, left ventricular ejection fraction < 35% (Acute) Z01.810, I51.89 Nonrheumatic mitral (valve) insufficiency (Chronic) I34.0 Mild per echo 01/16/2019 Chest pain (Acute) R07.9 Dyspnea on exertion (Chronic) R06.09 Shortness of breath (Acute) R06.02 Orthopnea (Acute) R06.01 Edema (Acute) R60.9 Atrial fibrillation (Chronic) I48.91 Pre-op ekg done @ [facility] showed new onset a-fib with RVR, HR 110 bpm on 12/04/2018; DCCV on 05/04/2019; Cardiomyopathy (Chronic) I42.9 Ef decreased from 47% in 2004 to 20-25% per echo 01/16/2019. Small focal anterior and inferior apical scar on stress test done 07/03/2004 @ [facility] Systolic congestive heart failure (Chronic) I50.20 Fatigue (Acute) R53.83 Tobacco use (Chronic) Z72.0 Hypertension (Chronic) I10 COPD (chronic obstructive pulmonary disease) (Chronic) J44.9 Hyperlipidemia (Chronic) E78.5 Osteoarthritis M19.90 Strain of left rotator cuff capsule S46.012A Allergies No Known Allergies Allergy (Verified 08/01/19 08:42) Home Medications: Ambulatory Orders Medication Instructions Recorded benazepril 10 mg tablet 10 mg PO DAILY 02/14/19 duloxetine 60 mg capsule,delayed 60 mg PO DAILY 02/14/19 release gabapentin 300 mg capsule 900 mg PO TID cap 02/14/19 ibuprofen 200 mg capsule 200 mg PO Q6H PRN cap 02/14/19 lovastatin 40 mg tablet 40 mg PO QHS 02/14/19 naproxen 500 mg tablet 500 mg PO BID PRN 02/14/19 spironolactone 25 mg tablet 25 mg PO 1800 02/14/19 tamsulosin 0.4 mg capsule 0.8 mg PO 1800 cap 02/14/19 aspirin 81 mg tablet,delayed 325 mg PO DAILY 04/06/19 release Acetaminophen [Tylenol Extra 500 - 1,000 mg PO Q6H PRN PRN 07/18/19 Strength] Amiodarone HCl 200 mg PO DAILY 07/18/19 Bumetanide 2 mg PO BID 07/18/19 Carvedilol 6.25 mg PO BID 07/18/19 Cholecalciferol (Vitamin D3) 2,000 unit PO DAILY 07/18/19 [Vitamin D3] Multivit-Min/FA/Lycopen/Lutein 1 ea PO DAILY 07/18/19 [Centrum Silver Men Tablet] Potassium Chloride [K-Tab ER] 20 meq PO BID 07/18/19 Rivaroxaban [Xarelto] 20 mg PO DAILY 07/18/19 Budesonide/Formoterol 160/4.5 2 puff INHALATION BID 08/01/19 [Symbicort 160/4.5 Mcg Inhaler (SP)] Tiotropium [place] [Spiriva 2.5 mcg INHALATION DAILY 08/01/19 Respimat] Surgical History: Surgical History (Last Updated 05/10/19 @ 09:39 by Viry Spencer) History of right and left heart catheterization (Resolved) Onset Date: 03/14/19 Z98.890 Normal coronary arteries; Global LV systolic dysfunction- Severe, LVEF: by LV gram 10 % Cardiomyopathy: Non-ischemic; Right heart pressures - moderately elevated RECOMMENDATIONS:Pt is at moderate to high risk for sonido surgery. Restart xarelto on 6/22/19 Consider starting amiodarone after sonido surgery and attempting DCCV. Manual sheath removal. Etoh and tob cessation. History of bilateral inguinal hernia repair Z98.890, Z87.19 left 1969, right 1971 History of lumbar laminectomy Z98.890 L4 and L5 1969 and 1979 Surgical History: - - Left total hip replacement, bilateral hernia repair, laminectomy L4-L5. Psychiatric History: Anxiety, Depression, Post traumatic stress Lives: Spouse/ Significant Other Smoking Status: Current some day smoker - Patient smokes approximately 5 cigarettes daily. Tobacco Use: Cigarettes Alcohol: Occasional - Patient notes drinking approximately 6 beers per week. Drugs: None - *Family History Maternal Family History: Family History (Last Reviewed 05/10/19 @ 09:29 by Viry Spencer) Mother CVA (cerebral vascular accident) Hypertension History Items: Heart Disease, Hypertension, Stroke Paternal Family History: Family History (Last Reviewed 05/10/19 @ 09:29 by Viry Spencer) Mother CVA (cerebral vascular accident) Hypertension History Items: Heart Disease Review of Systems Constitutional: Reports: Malaise, Weakness, Fatigue. Denies: Anorexia, Chills, Fever, Weight Change HEENT: Denies: Head Aches, Sinus Congestion, Sinus Drainage Cardiovascular: Denies: Chest Pain, Palpitations Respiratory: Denies: Cough, Shortness of breath at rest, Sputum production Gastrointestinal: Denies: Abdominal Pain, Nausea, Vomiting Genitourinary: Denies: Dysuria Musculoskeletal: Reports: Joint Pain, Joint stiffness, Joint swelling, Joint Tenderness, Leg Pain Skin: Reports: Skin Changes. Denies: Rash, Wounds Neurological: Denies: Numbness, Tingling, Focal weakness Psychiatric: Reports: Anxiety, Depression. Denies: Homicidal Ideations, Suicidal Ideations Hematologic/ Lymphatic: Reports: Easy Bruising, Easy Bleeding Subjective: Patient seated upright, no acute distress, denies any current pain. Objective: Physical Examination: General: awake, alert, oriented x 3 and cooperative, seated upright in the MS bed in no apparent distress, notes pain well controlled. Skin: normal color, turgor, no icterus, cyanosis except status post left total hip replacement, dressing in place. HEENT: AT/NC, EOMI, PERRLA, MMM, no carotid bruits or JVD noted. Lungs: CTA bilaterally, moderate effort, moderate decrease BL bases, no rales, ronchi or wheezing. Heart: Regular rate and rhythm; no gallop, rub audible. Abdomen: soft, overweight, NTTP, ND, normal BS, no HSM. Extremities: no cyanosis, clubbing, mild bilateral nonpitting ankle edema, status post left total hip replacement, dressing in place. Neurological: patient awake, alert, oriented x 3; cognitive function intact; pupils equally reactive to light and accomodation; cranial nerves II-XII grossly normal, moving all 4 extremities although expected decreased left side given recent left total hip replacement, strength accordingly moderately to severely global decrease. Psychiatric: affect appears normal, no acute evidence of depressive or anxiety feelings. - Physical Exam Vitals/I&O's: Vital Signs Temp Pulse Resp BP Pulse Ox 97.8 F 60 16 157/84 H 100 08/01/19 14:58 08/01/19 14:58 08/01/19 14:58 08/01/19 14:58 08/01/19 14:58 Oxygen Flow Rate (L/min) 6 Oxygen Delivery Method Room Air Weight: 206 lb 2.115 oz Body Mass Index (BMI) 27.9 Intake and Output for Last 24 Hours 07/30/19 07/31/19 08/01/19 23:59 23:59 23:59 Intake Total 1595.00 / 1595.00 Balance 1595.00 / 1595.00 Laboratory Results 08/01/19 08:58: POC Glucose 105 Current Medications Acetaminophen (Tylenol) 1,000 mg PO Q8 [facility] Last Admin: 08/01/19 15:03 Dose: Not Given Documented by: Albuterol/Ipratropium (Duoneb) 3 ml INHALATION Q6HWA.RT [facility] Amiodarone HCl (Cordarone) 200 mg PO DAILY [facility] Aspirin (Ecotrin) 325 mg PO DAILY@0800 [facility] Atorvastatin Calcium (Lipitor) 10 mg PO QHS [facility] Budesonide (Pulmicort Aerosol) 0.5 mg INHALATION Q12H.RT [facility] Bumetanide (Bumex) 2 mg PO BIDLX [facility] Last Admin: 08/01/19 15:02 Dose: Not Given Documented by: Carvedilol (Coreg) 6.25 mg PO BID [facility] Cholecalcifer[facility] ([facility]) [facility] Duloxetine HCl (Cymbalta) 60 mg PO DAILY [facility] Enteral Nutritional Formula (Ensure Surgery) 237 ml PO TIDCM [facility] Last Admin: 08/01/19 15:02 Dose: Not Given Documented by: Famotidine (Pepcid) 20 mg PO DAILY [facility] Last Admin: 08/01/19 15:02 Dose: Not Given Documented by: Gabapentin (Neurontin) 900 mg PO TIDCM [facility] Last Admin: 08/01/19 15:02 Dose: Not Given Documented by: Lactated Ringer's () 1,000 mls @ 100 mls/hr IV .Q10H [facility] Last Admin: 08/01/19 15:09 Dose: 100 mls/hr Documented by: Cefazolin Sodium () 1 gm in 50 mls @ 150 mls/hr IV Q8H [facility] Stop: 08/02/19 03:19 Ketorolac Tromethamine (Toradol) 15 mg IV Q6H PRN PRN PRN Reason: Pain Score 1-5/10 Lisinopril (Zestril) 10 mg PO DAILY [facility] Meloxicam (Mobic) 7.5 mg PO BID [facility] Morphine Sulfate () 2 - 4 mg IV Q2H PRN PRN PRN Reason: Pain Score 4-10/10 Morphine Sulfate () 2 - 4 mg IV Q2H PRN PRN PRN Reason: Pain Score 4-10/10 Ondansetron HCl (Zofran) 4 mg IV Q8H PRN PRN PRN Reason: NAUSEA Oxycodone HCl (Oxyir) 5 - 10 mg PO Q4H PRN PRN PRN Reason: Pain Score 4-10/10 Pot[facility] Promethazine HCl (Phenergan) 12.5 mg IM Q6H PRN PRN; Protocol PRN Reason: NAUSEA/VOMITING Rivaroxaban (Xarelto) 20 mg PO DAILY@1700 [facility] Senna/Docusate Sodium (Senokot-S, Dina-Colace) 2 tablet PO BID [facility] Last Admin: 08/01/19 15:02 Dose: Not Given Documented by: Sodium Chloride () 10 - 40 ml IV UD PRN PRN Reason: SALINE FLUSH Spironolactone (Aldactone) 25 mg PO 1800 [facility] Tamsulosin HCl (Flomax) 0.8 mg PO 1800 [facility] Assessment/Plan All Active Problems (Last Updated 06/27/19 @ 14:26 by Renetta Melgoza) Pleural effusion, right (Acute) History of right and left heart catheterization (Resolved 03/14/19) Pre-operative cardiovascular examination, left ventricular ejection fraction < 35% (Acute) Chest pain (Acute) Shortness of breath (Acute) Orthopnea (Acute) Edema (Acute) Fatigue (Acute) The patient is a 69 y/o M w/ PMHx: Chronic COPD/Asthma, Tobacco use, HTN, HLD, Cardiomyopathy/Systolic CHF, GERD, PAF who presents to the [facility] on 08/01/19 for planned L THR per Dr. Barrett secondary to failed outpatient conservative interventions. (1) Severe Osteoarthritis, left hip: Failed conservative therapies and treatments, admitted per Dr. Barrett for planned left total hip replacement, post-operative pain management, bowel regimen, DVT Prophylaxis, PT/OT/CM per Orthopedic surgery discretion. (2) Cardiomyopathy unclear type, systolic CHF: Compensated appearance, continue home aspirin, resumption of Xarelto once cleared per orthopedic surgery, benazepril, Coreg, bumetanide, lovastatin, spironolactone. (3) Chronic COPD/Asthma: ATC duonebs, PRN albuterol, HOB, IS parameters. (4) PAF: Patient notes prior history of cardioversion, will continue patient on home amiodarone, resumption of Xarelto once cleared per orthopedic surgery. (5) Hypertension: Continue home regimen including benazepril, Coreg, spironolactone, bumetanide, PRN hydralazine. (6) Hyperlipidemia: Continue home statin regimen. (7) Anxiety and depression: We will continue home duloxetine regimen. (8) Tobacco Abuse: Encouraged cessation, inpatient consultation per RT, NR if desired. (9) GERD: Continue home famotidine. (10) DVT prophylaxis: SCDs, resumption of Xarelto once cleared per orthopedic surgery. Code Visit Inpatient E&M: 24960 Subs Hosp L3
[2019-08-01] MEDS: Gabapentin 300 MG Capsule 900 MG PO (16:34)
[2019-08-01] MEDS: Bumetanide 2 MG Tablet PO (16:36)
[2019-08-01] MEDS: DULoxetine Hcl 60 MG Capsule PO (16:36)
[2019-08-01] MEDS: Tamsulosin HCl 0.4 MG Capsule 0.8 MG PO (16:37)
[2019-08-01] MEDS: Spironolactone 25 MG Tablet PO (16:40)
[2019-08-01] MEDS: 0.9% Saline Lock 10 ML Syringe IV (16:40)
[2019-08-01] MEDS: Ensure Surgery 237 ML LIQUID PO (16:40)
[2019-08-01] MEDS: Cefazolin 1 GM/50 ML BAG IV (18:42)
[2019-08-01] MEDS: Budesonide Respules 0.5 MG/2 ML AMPUL.NEB. INHALATION (19:22)
[2019-08-01] MEDS: Ipratropium/Albuterol Sulfate 3 ML AMPUL.NEB INHALATION (19:22)
[2019-08-01] MEDS: Atorvastatin Calcium 10 MG Tablet PO (20:20)
[2019-08-01] MEDS: oxyCODONE 5 MG Tablet PO (20:20)
[2019-08-01] MEDS: Senna/Docusate Sodium 1 Tablet 2 TABLET PO (20:21)
[2019-08-01] MEDS: Carvedilol 6.25 MG Tablet PO (20:22)
[2019-08-02 02:13] VITALS: BP 143/74; PULSE 68; RESP 16; TEMP 36.5; O2SAT 96
[2019-08-02] MEDS: Cefazolin 1 GM/50 ML BAG IV (02:31)
[2019-08-02] MEDS: Acetaminophen 500 MG Tablet 1000 MG PO (05:31)
[2019-08-02] MEDS: 0.9% Saline Lock 10 ML Syringe IV (05:31)
[2019-08-02 05:48] LABS: Hematocrit 34.7 % (40-54); Hemoglobin 11.5 g/dL (13.0-16.5); Mean Corp Hgb Conc 33.1 g/dL (32-36); Mean Corpuscular Hgb 32.4 pg (27.0-32.0); Mean Corpuscular Volume 97.7 fL (80-94); Mean Platelet Vol. 9.4 fl (6.2-12.0); Platelet Count 213 K/mm3 (150-450); RBC Distribution Width CV 13.9 % (11.6-14.6); RBC Distribution Width SD 50.4 fl (35.1-43.9); Red Blood Count 3.55 M/mm3 (4.6-6.2); White Blood Count 19.9 K/mm3 (4.4-11.0)
[2019-08-02 06:17] LABS: Anion Gap 6 (5-15); BUN 24 mg/dL (7-18); BUN/Creat Ratio 21.1 RATIO (10-20); Calcium,Total 8.8 mg/dL (8.5-10.1); Chloride 103 mmol/L (98-107); Creatinine, Serum 1.14 mg/dL (0.70-1.30); EST Glomerular Filtration Rate 67 mL/min (>60); Est Glom Filt Rate - Afr Amer 81 mL/min (>60); Estimated Creatinine Clearance 65.23 ml/min; Glucose 180 mg/dL (74-106); Potassium 4.3 mmol/L (3.5-5.1); Sodium Level 139 mmol/L (136-145)
[2019-08-02 07:03] VITALS: PULSE 70; RESP 18
[2019-08-02 08:00] VITALS: BP 144/79; PULSE 66; RESP 16; TEMP 36.6; O2SAT 96
[2019-08-02] MEDS: Aspirin E.C. 325 MG Tablet PO (08:30)
[2019-08-02] MEDS: Senna/Docusate Sodium 1 Tablet 2 TABLET PO (08:31)
[2019-08-02] MEDS: Lisinopril 10 MG Tablet PO (08:31)
[2019-08-02] MEDS: Carvedilol 6.25 MG Tablet PO (08:32)
[2019-08-02] MEDS: DULoxetine Hcl 60 MG Capsule PO (08:32)
[2019-08-02] MEDS: Gabapentin 300 MG Capsule 900 MG PO (08:33)
[2019-08-02] MEDS: Amiodarone 200 MG Tablet PO (08:33)
[2019-08-02] MEDS: Bumetanide 2 MG Tablet PO (08:33)
[2019-08-02] MEDS: Famotidine 20 MG Tablet PO (08:39)
--- NOTE | 2019-08-02 08:59 | PN.ORTHO_ITS ---
Subjective: The patient was sitting in bedside chair upon examination. Patient denies any chest pain, shortness of breath, dizziness, lightheadedness, nausea or vomiting, or calf pain. Pain is controlled on medications. No adverse overnight events. Overall patient is doing very well and wishes to go home today. He has been up walking tolerating this very well with minimal pain in the left hip. Objective: Vital signs stable and afebrile. Patient is able to plantarflex and dorsiflex actively. Sensation is intact to light touch to saphenous, sural, superficial and deep peroneal, and tibial distribution. Dressing is clean dry. The inferior/lateral border of the dressing has folded and will replace with a new Mepilex dressing. Overall dressing is without any drainage Negative Homans bilaterally, negative signs and symptoms of DVT. - Physical Exam Vitals/I&O's: Vital Signs Temp Pulse Resp BP Pulse Ox 97.9 F 66 16 144/79 H 96 08/02/19 08:00 08/02/19 08:00 08/02/19 08:00 08/02/19 08:00 08/02/19 08:00 Oxygen Flow Rate (L/min) 6 Oxygen Delivery Method Room Air Weight: 93.5 kg Body Mass Index (BMI) 27.9 Intake and Output for Last 24 Hours 07/31/19 08/01/19 08/02/19 23:59 23:59 23:59 Intake Total 2600.00 / 3200.00 1207.00 / 1207.00 Output Total 300 / 500 475 / 475 Balance 2300.00 / 2700.00 732.00 / 732.00 General: Alert, Oriented x3, Cooperative, No apparent distress Laboratory Results 08/01/19 08:58: POC Glucose 105 08/02/19 05:25: WBC 19.9 H, RBC 3.55 L, Hgb 11.5 L, Hct 34.7 L, MCV 97.7 H, MCH 32.4 H, MCHC 33.1, RDW Std Deviation 50.4 H, RDW Coeff of [place]ardo 13.9, Plt Count 213, MPV 9.4 08/02/19 05:25: Sodium 139, Potassium 4.3, Chloride 103, Carbon Dioxide 30.0, Anion Gap 6, BUN 24 H, Creatinine 1.14, Estim Creat Clear Calc 65.23, Est GFR (MDRD) Af Amer 81, Est GFR (MDRD) Non-Af 67, BUN/Creatinine Ratio 21.1 H, Glucose 180 H, Calcium 8.8 Current Medications Acetaminophen (Tylenol) 1,000 mg PO Q8 [facility] Last Admin: 08/02/19 05:31 Dose: 1,000 mg Documented by: Albuterol Sulfate (Ventolin Aerosols) 2.5 mg INHALATION Q2H PRN PRN PRN Reason: dyspnea, wheezing Albuterol/Ipratropium (Duoneb) 3 ml INHALATION Q6HWA.RT [facility] Last Admin: 08/01/19 19:22 Dose: 3 ml Documented by: Amiodarone HCl (Cordarone) 200 mg PO DAILY [facility] Last Admin: 08/02/19 08:33 Dose: 200 mg Documented by: Aspirin (Ecotrin) 325 mg PO DAILY@0800 [facility] Last Admin: 08/02/19 08:30 Dose: 325 mg Documented by: Atorvastatin Calcium (Lipitor) 10 mg PO QHS [facility] Last Admin: 08/01/19 20:20 Dose: 10 mg Documented by: Budesonide (Pulmicort Aerosol) 0.5 mg INHALATION Q12H.RT [facility] Last Admin: 08/01/19 19:22 Dose: 0.5 mg Documented by: Bumetanide (Bumex) 2 mg PO BIDLX [facility] Last Admin: 08/02/19 08:33 Dose: 2 mg Documented by: Carvedilol (Coreg) 6.25 mg PO BID [facility] Last Admin: 08/02/19 08:32 Dose: 6.25 mg Documented by: Cholecalciferol (Vitamin D) 2,000 unit PO DAILYCM [facility] Last Admin: 08/02/19 08:32 Dose: 2,000 unit Documented by: Duloxetine HCl (Cymbalta) 60 mg PO DAILY [facility] Last Admin: 08/02/19 08:32 Dose: 60 mg Documented by: Enteral Nutritional Formula (Ensure Surgery) 237 ml PO TIDCM [facility] Last Admin: 08/01/19 16:40 Dose: 237 ml Documented by: Famotidine (Pepcid) 20 mg PO DAILY [facility] Last Admin: 08/02/19 08:39 Dose: 20 mg Documented by: Gabapentin (Neurontin) 900 mg PO TIDCM [facility] Last Admin: 08/02/19 08:33 Dose: 900 mg Documented by: Ketorolac Tromethamine (Toradol) 15 mg IV Q6H PRN PRN PRN Reason: Pain Score 1-5/10 Lisinopril (Zestril) 10 mg PO DAILY [facility] Last Admin: 08/02/19 08:31 Dose: 10 mg Documented by: Meloxicam (Mobic) 7.5 mg PO BID [facility] Morphine Sulfate () 2 - 4 mg IV Q2H PRN PRN PRN Reason: Pain Score 4-10/10 Morphine Sulfate () 2 - 4 mg IV Q2H PRN PRN PRN Reason: Pain Score 4-10/10 Ondansetron HCl (Zofran) 4 mg IV Q8H PRN PRN PRN Reason: NAUSEA Oxycodone HCl (Oxyir) 5 - 10 mg PO Q4H PRN PRN PRN Reason: Pain Score 4-10/10 Last Admin: 08/01/19 20:20 Dose: 10 mg Documented by: [facility] Last Admin: 08/02/19 08:33 Dose: 20 meq Documented by: Promethazine HCl (Phenergan) 12.5 mg IM Q6H PRN PRN; Protocol PRN Reason: NAUSEA/VOMITING Rivaroxaban (Xarelto) 20 mg PO DAILY@1700 [facility] Senna/Docusate Sodium (Senokot-S, Dina-Colace) 2 tablet PO BID [facility] Last Admin: 08/02/19 08:31 Dose: 2 tablet Documented by: Sodium Chloride () 10 - 40 ml IV UD PRN PRN Reason: SALINE FLUSH Last Admin: 08/02/19 05:31 Dose: 10 ml Documented by: Spironolactone (Aldactone) 25 mg PO 1800 [facility] Last Admin: 08/01/19 16:40 Dose: 25 mg Documented by: Tamsulosin HCl (Flomax) 0.8 mg PO 1800 [facility] Last Admin: 08/01/19 16:37 Dose: 0.8 mg Documented by: Medical Necessity - Tobacco Use Smoking Status: Current some day smoker - Patient smokes approximately 5 cigarettes daily. Tobacco Use: Cigarettes Assessment/Plan All Active Problems (Last Updated 06/27/19 @ 14:26 by Renetta Melgoza) Pleural effusion, right (Acute) History of right and left heart catheterization (Resolved 03/14/19) Pre-operative cardiovascular examination, left ventricular ejection fraction < 35% (Acute) Chest pain (Acute) Shortness of breath (Acute) Orthopnea (Acute) Edema (Acute) Fatigue (Acute) 1. S/P direct anterior left total hip arthroplasty POD #1 2. Continue Pain Medications: Tylenol and OxyIR 3. DVT Prophylaxis: Patient will be placed back on his Xarelto postoperatively due to history of atrial fibrillation 4. PT/OT: Weightbearing as tolerated 5. H & H: 11.5/34.7, asymptomatic 6. Reactive leukocytosis: Currently 19.9, afebrile. Patient did receive Decadron intraoperatively 7. Encouraged Incentive Spirometry 8. Continue postoperative medical management per medicine 9. Disposition: Plan will be for discharge home this afternoon as long as patient tolerates physical therapy and cleared by medicine. Overall patient is doing well from an orthopedic standpoint. Prescriptions will be E scribed to [facility]. Patient will follow-up per postop instructions. She does have outpatient physical therapy established.
--- NOTE | 2019-08-02 09:07 | DCINST_ITS ---
Discharge Diet: No Restrictions Discharge Activity: May Not Drive - while taking narcotic pain medications. May shower in (days): 1 - Turn dressing away from water. Dressing must be intact the skin Ice area for (Minutes): 20 - Every 1-2 hours while awake Weight Bearing Status: Weight bearing as tolerated - With walker Elevate: Operative Extremity Additional Activity Instructions:: Wear elastic stockings for 2 weeks. DO NOT use alcohol with narcotic pain medication. DO NOT make important decisions while taking narcotic medication. If you have problems with taking your medication (rash, itching, nausea, etc.) call the office at once. Call your doctor if your incision/area has: Increased Pain/ Swelling, Increased Redness, Foul Smelling Discharge Call your doctor if you observe: Fever of 101 or Higher Remove Dressing in (days):: 4 - Okay to remove on August 06, 2019 Additional Instructions: Follow orthopedic postop instructions Allergies/Adverse Reactions: Allergies No Known Allergies Allergy (Verified 08/01/19 08:42) Medications to take at Discharge benazepril 10 mg tablet 10 mg PO DAILY 02/14/19 duloxetine 60 mg capsule,delayed release 60 mg PO DAILY 02/14/19 gabapentin 300 mg capsule 900 mg PO TID cap 02/14/19 lovastatin 40 mg tablet 40 mg PO QHS 02/14/19 spironolactone 25 mg tablet 25 mg PO 1800 02/14/19 tamsulosin 0.4 mg capsule 0.8 mg PO 1800 cap 02/14/19 aspirin 81 mg tablet,delayed release 325 mg PO DAILY 04/06/19 Amiodarone HCl 200 mg PO DAILY 07/18/19 Bumetanide 2 mg PO BID 07/18/19 Carvedilol 6.25 mg PO BID 07/18/19 Cholecalciferol (Vitamin D3) [Vitamin D3] 2,000 unit PO DAILY 07/18/19 Multivit-Min/FA/Lycopen/Lutein [Centrum Silver Men Tablet] 1 ea PO DAILY 07/18/19 Potassium Chloride [K-Tab ER] 20 meq PO BID 07/18/19 Rivaroxaban [Xarelto] 20 mg PO DAILY 07/18/19 Budesonide/Formoterol 160/4.5 [Symbicort 160/4.5 Mcg Inhaler (SP)] 2 puff INHALATION BID 08/01/19 Tiotropium [place] [Spiriva Respimat] 2.5 mcg INHALATION DAILY 08/01/19 Acetaminophen [Tylenol] 1,000 mg PO Q8 #100 tab 08/02/19 Oxycodone [Oxyir] 5 - 10 mg PO Q4H PRN PRN 3 Days #36 tablet 08/02/19 Senna/Docusate Sodium [Senokot-S] 2 tab PO BID #10 tab 08/02/19 The following prescriptions were given: Oxycodone [Oxyir] 5 - 10 mg PO Q4H PRN PRN 3 Days #36 tablet PRN Reason: Pain Score 4-10 Transmission Status: Sent to [facility] Senna/Docusate Sodium [Senokot-S] 2 tab PO BID #10 tab Transmission Status: Pending to [facility] Acetaminophen [Tylenol] 1,000 mg PO Q8 #100 tab Transmission Status: Pending to [facility] Primary Care Physician: Reymundo Zavala MD [Primary Care Provider] - Test Results: Test results from this visit will be discussed in further detail at your follow- up appointment, if applicable. Please Follow Up With: Gregory Byers Physical therapy When: 08/06/19 @ 9:00 am Please Follow Up With: Tong Miles PA-C When: 08/15/19 @ 9:00 am
--- NOTE | 2019-08-02 09:47 | PN_ITS ---
Subjective: Patient is hemodynamically stable. Blood pressure in 140s. Patient is ready to go home. Has history of smoking underscore down to few cigarettes daily. Agreed to take nicotine patch. Has history of paroxysmal A. fib but currently sinus rhythm and heart rate is controlled. Denies history of coronary artery disease/angina, cardiac stents. Vitals/I&O's: Vital Signs Temp Pulse Resp BP Pulse Ox 97.9 F 66 16 144/79 H 96 08/02/19 08:00 08/02/19 08:00 08/02/19 08:00 08/02/19 08:00 08/02/19 08:00 Oxygen Flow Rate (L/min) 6 Oxygen Delivery Method Room Air Weight: 206 lb 2.115 oz Body Mass Index (BMI) 27.9 Intake and Output for Last 24 Hours 07/31/19 08/01/19 08/02/19 23:59 23:59 23:59 Intake Total 2600.00 / 3200.00 1207.00 / 1207.00 Output Total 300 / 500 475 / 475 Balance 2300.00 / 2700.00 732.00 / 732.00 General: Alert, Oriented x3, Cooperative HEENT: Atraumatic, PERRLA, EOMI, Normocephalic Neck: Supple, No JVD, Negative Carotid Bruits Lungs: Clear to auscultation, Normal air movement, No rhonchi, No wheeze, No rales Cardiovascular: Regular rate, Regular Rhythm, Normal S1, Normal S2, No murmurs Abdomen: Bowel Sounds Present, Soft, Non Tender, Non-Distended Extremities: No edema, Capillary Refill Less than 3 Seconds Skin: No rashes, No breakdown Musculoskeletal: No Tenderness to Palpation of Joints or Extremities, Arthritic Changes Neurological: Cranial nerves II-XII grossly intact, Deep Tendon Reflexes 2+/4 and Symmetrical, Neuro grossly intact Psych/Mental Status: Normal Affect, Appropriate Laboratory Results 08/02/19 05:25: WBC 19.9 H, RBC 3.55 L, Hgb 11.5 L, Hct 34.7 L, MCV 97.7 H, MCH 32.4 H, MCHC 33.1, RDW Std Deviation 50.4 H, RDW Coeff of Medardo 13.9, Plt Count 213, MPV 9.4 08/02/19 05:25: Sodium 139, Potassium 4.3, Chloride 103, Carbon Dioxide 30.0, Anion Gap 6, BUN 24 H, Creatinine 1.14, Estim Creat Clear Calc 65.23, Est GFR (MDRD) Af Amer 81, Est GFR (MDRD) Non-Af 67, BUN/Creatinine Ratio 21.1 H, Glucose 180 H, Calcium 8.8 Current Medications Acetaminophen (Tylenol) 1,000 mg PO Q8 [facility] Last Admin: 08/02/19 05:31 Dose: 1,000 mg Documented by: Albuterol Sulfate (Ventolin Aerosols) 2.5 mg INHALATION Q2H PRN PRN PRN Reason: dyspnea, wheezing Albuterol/Ipratropium (Duoneb) 3 ml INHALATION Q6HWA.RT [facility] Last Admin: 08/01/19 19:22 Dose: 3 ml Documented by: Amiodarone HCl (Cordarone) 200 mg PO DAILY [facility] Last Admin: 08/02/19 08:33 Dose: 200 mg Documented by: Aspirin (Ecotrin) 325 mg PO DAILY@0800 [facility] Last Admin: 08/02/19 08:30 Dose: 325 mg Documented by: Atorvastatin Calcium (Lipitor) 10 mg PO QHS [facility] Last Admin: 08/01/19 20:20 Dose: 10 mg Documented by: Budesonide (Pulmicort Aerosol) 0.5 mg INHALATION Q12H.RT [facility] Last Admin: 08/01/19 19:22 Dose: 0.5 mg Documented by: Bumetanide (Bumex) 2 mg PO BIDLX [facility] Last Admin: 08/02/19 08:33 Dose: 2 mg Documented by: Carvedilol (Coreg) 6.25 mg PO BID [facility] Last Admin: 08/02/19 08:32 Dose: 6.25 mg Documented by: Cholecalciferol (Vitamin D) 2,000 unit PO DAILYCM [facility] Last Admin: 08/02/19 08:32 Dose: 2,000 unit Documented by: Duloxetine HCl (Cymbalta) 60 mg PO DAILY [facility] Last Admin: 08/02/19 08:32 Dose: 60 mg Documented by: Enteral Nutritional Formula (Ensure Surgery) 237 ml PO TIDCM [facility] Last Admin: 08/01/19 16:40 Dose: 237 ml Documented by: Famotidine (Pepcid) 20 mg PO DAILY [facility] Last Admin: 08/02/19 08:39 Dose: 20 mg Documented by: Gabapentin (Neurontin) 900 mg PO TIDCM [facility] Last Admin: 08/02/19 08:33 Dose: 900 mg Documented by: Ketorolac Tromethamine (Toradol) 15 mg IV Q6H PRN PRN PRN Reason: Pain Score 1-5/10 Lisinopril (Zestril) 10 mg PO DAILY [facility] Last Admin: 08/02/19 08:31 Dose: 10 mg Documented by: Meloxicam (Mobic) 7.5 mg PO BID [facility] Morphine Sulfate () 2 - 4 mg IV Q2H PRN PRN PRN Reason: Pain Score 4-10/10 Morphine Sulfate () 2 - 4 mg IV Q2H PRN PRN PRN Reason: Pain Score 4-10/10 Ondansetron HCl (Zofran) 4 mg IV Q8H PRN PRN PRN Reason: NAUSEA Oxycodone HCl (Oxyir) 5 - 10 mg PO Q4H PRN PRN PRN Reason: Pain Score 4-10/10 Last Admin: 08/01/19 20:20 Dose: 10 mg Documented by: Potassium Chloride (K-Dur) 20 meq PO BIDCM [facility] Last Admin: 08/02/19 08:33 Dose: 20 meq Documented by: Promethazine HCl (Phenergan) 12.5 mg IM Q6H PRN PRN; Protocol PRN Reason: NAUSEA/VOMITING Rivaroxaban (Xarelto) 20 mg PO DAILY@1700 [facility] Senna/Docusate Sodium (Senokot-S, Dina-Colace) 2 tablet PO BID [facility] Last Admin: 08/02/19 08:31 Dose: 2 tablet Documented by: Sodium Chloride () 10 - 40 ml IV UD PRN PRN Reason: SALINE FLUSH Last Admin: 08/02/19 05:31 Dose: 10 ml Documented by: Spironolactone (Aldactone) 25 mg PO 1800 [facility] Last Admin: 08/01/19 16:40 Dose: 25 mg Documented by: Tamsulosin HCl (Flomax) 0.8 mg PO 1800 [facility] Last Admin: 08/01/19 16:37 Dose: 0.8 mg Documented by: STROKE Vital Signs/Narrative: Vital Signs Temp Pulse Resp BP Pulse Ox 08/02/19 08:00 97.9 F 66 16 144/79 H 96 11/07/19 07:03 70 18 Medical Necessity - Tobacco Use Smoking Status: Current some day smoker - Patient smokes approximately 5 cigarettes daily. Tobacco Use: Cigarettes Assessment/Plan All Active Problems (Last Updated 06/27/19 @ 14:26 by Renetta Melgoza) Pleural effusion, right (Acute) History of right and left heart catheterization (Resolved 03/14/19) Pre-operative cardiovascular examination, left ventricular ejection fraction < 35% (Acute) Chest pain (Acute) Shortness of breath (Acute) Orthopnea (Acute) Edema (Acute) Fatigue (Acute) The patient is a 69 y/o M with with history of COPD/Asthma, chronic cigarette smoking, HTN, HLD, Cardiomyopathy/Systolic CHF, GERD, PAF who presents to the [facility] on 08/01/19 for planned L THR per Dr. Barrett secondary to failed outpatient conservative interventions. (1) left hip primary osteoarthritis status post direct anterior total hip replacement: On Xarelto for paroxysmal A. fib. Continue PT and OT. Patient did well the morning with physical therapist. Discharge home with outpatient physical therapy. Discussed with the orthopedic surgeon. (2) chronic systolic and diastolic heart failure: Echo on June 2019 reported as EF 40 to 45% with a stage II diastolic dysfunction with mild to moderate global hypokinesis of left ventricle. LA severely enlarged. Currently patient is well compensated.continue home aspirin, resumption of Xarelto once cleared per orthopedic surgery, benazepril, Coreg, bumetanide, lovastatin, spironolactone. (3) Chronic COPD/Asthma: ATC duonebs, PRN albuterol, HOB, IS parameters. (4) PAF: Patient notes prior history of cardioversion, will continue patient on home amiodarone, resumption of Xarelto once cleared per orthopedic surgery. (5) Hypertension: Continue home regimen including benazepril, Coreg, spironolactone, bumetanide, PRN hydralazine. (6) Hyperlipidemia: Continue home statin regimen. (7) Anxiety and depression: We will continue home duloxetine regimen. (8) Tobacco Abuse: Encouraged cessation, inpatient consultation per RT, NR if desired. (9) GERD: Continue home famotidine. (10) DVT prophylaxis: SCDs, Xarelto is being resumed about 5 PM today and that will be about 36 hours after surgery. Patient is being discharged home. Follow-up with PCP and orthopedic surgeon. Code Visit Inpatient E&M: 19755 Subs Hosp L2
--- NOTE | 2019-08-02 10:40 | CASEMGMT ---
RN JEFRY Face to Face with patient for initial transition planning/care coordination assessment. RN CM introduced self and role at [facility]. Patient sitting in chair, alert and oriented. Patient willing to participate in assessment and is able to answer all questions appropriately. Care providers, pharmacy, and demographics verified. Patient wishes to discharge home and is [facility]. Patient states he has no further needs or concerns at this time. CM to follow for discharge planning needs that may arise. PCP: Lucas Specialists: none Preferred Pharmacy: [facility] Retail Insurance: [facility] Prescription Benefit: yes Living Will/HPOA: yes, Violeta Singh LNOK: Living Arrangements: Patient lives with in 1 story home with 4 steps and railing x2. Patient independent at home prior to discharge. Transportation: DME/HHC: Patient has shower chair, grab bars, cane, walker, wheelchair at home. [facility] is [facility] for Tuesday Disposition Plan: Patient to discharge home with outpatient threrapy, family support, and follow-up plans in place. Anastasia JORDAN, RN, CM
== END 2019-08-02 12:25 | disposition home or self-care (01) | DRG 470 ==
LOC: ACINP 08:09 → MS3 08-02 00:58
PROVIDERS: Admitting Provider Specialist; Family Provider Family Medicine; PCP Family Medicine; Referring Provider Specialist; Visit Provider Specialist
PROC: 0SRB02Z Replacement of Left Hip Joint with Metal on Polyethylene Synthetic Substitute, Open Approach (ICD-10-PCS; CPT 27284; principal; 2019-08-01 09:50)
DX: M16.12 Unilateral primary osteoarthritis, left hip (principal); I11.0 Hypertensive heart disease with heart failure; I50.42 Chronic combined systolic (congestive) and diastolic (congestive) heart failure; Z79.02 Long term (current) use of antithrombotics/antiplatelets; I48.0 Paroxysmal atrial fibrillation; F17.210 Nicotine dependence, cigarettes, uncomplicated; Z79.899 Other long term (current) drug therapy; F43.10 Post-traumatic stress disorder, unspecified; Z79.82 Long term (current) use of aspirin; J44.9 Chronic obstructive pulmonary disease, unspecified; K21.9 Gastro-esophageal reflux disease without esophagitis; I25.5 Ischemic cardiomyopathy; E78.5 Hyperlipidemia, unspecified; F32.9 Major depressive disorder, single episode, unspecified; F41.9 Anxiety disorder, unspecified; D72.828 Other elevated white blood cell count
CPT/HCPCS: 36415; 73501; 73502; 76000; 80048; 82962; 85025; 85027; 87077; 87081; 94640; 97110; 97162; 97166; 97530; 99251; C1776; J7120; A4216; G0463

== ENCOUNTER → 2020-02-22 | Outpatient (CLI) | payer MEDICARE, SELFPAY ==
[2020-02-12 11:06] VITALS: BMI 27.9
--- NOTE | 2020-02-22 07:12 | CT_ITS ---
STUDY: LOW DOSE CT LUNG CANCER SCREENING REASON FOR EXAM: Male, 70 years old. Tobacco use. I PPD X 50 YR. CURRENT SMOKER RADIATION DOSAGE (If Supplied By Facility): CTDIvol = ( 3.02 ) mGy, DLP = ( 115.13 ) mGycm TECHNIQUE: No contrast was administered. Low dose technique was utilized (average mAS-38 and kVp 120). 1.25 mm axial source images with a slice interval of 1.25-mm were reconstructed in lung windows. 2.5 mm axial source images with a slice interval of 2.5-mm were reconstructed in lung windows. 5.0 mm axial source images with a slice interval of 5.0-mm were reconstructed in soft tissue windows. Nodule measured using lung windows on PACS and/or independent workstation with automated measurement of minimum and maximum diameter. Nodule measurement reported as average diameter rounded to the nearest whole number. Growth is defined as an increase ins size of greater than 1.5 mm. COMPARISON: Comparison is made with prior CT scan of the thorax dated April 02, 2019 NODULES: No nodules are seen. Emphysema: Mild degree of emphysematous changes with scattered bullae seen in both lungs. Stable minimal linear scarring at the lung bases. Aorta: Atherosclerotic plaque formation. Coronary arteries: Coronary artery calcification. Mediastinal nodes: Small benign-appearing mediastinal lymph nodes. Other chest and abdominal findings: Small hiatal hernia. CT/Low Dose CT Lung Screening IMPRESSION: Lung-RADS category 2 - Continue annual screening with LDCT in 12 months. IMPORTANT NOTES FOR USE: ACR Lung-RADS Version 1.0 Assessment Categories Release Date: January 21, 2014 Category: Coded 0-4 bases on nodule(s) with highest degree of suspicion. Negative screen is defined as categories 1 and 2; a positive screen is defined as categories 3 and 4. Category 3 and 4A nodules that are unchanged on interval CT should be coded as category 2, and individuals returned to screening in 12 months. Category 4X: Category 3 or 4 nodules with additional imaging findings that increase the suspicion of lung cancer, such as spiculation, GGN that doubles in size in 1 year, enlarged lymph notes, etc. Category Modifiers: S (significant finding unrelated to lung cancer) and C (prior history of treated lung cancer) may be added to the 0-4 Lung-RADS Electronically Signed: Ja Quezada, at 8:27 EDT , Service support ,
== END | disposition home or self-care (01) ==
LOC: CT 07:12
PROVIDERS: PCP Family Medicine; Referring Provider Nurse Practitioner Acute Care; Visit Provider Nurse Practitioner Acute Care
DX: F17.210 Nicotine dependence, cigarettes, uncomplicated (principal)
CPT/HCPCS: G0297

== ENCOUNTER 2021-11-20 16:09 | Emergency (ER) | payer OTHER, SELFPAY ==
[2021-11-20 16:13] VITALS: BP 129/87; PULSE 64; RESP 14; TEMP 36.7; O2SAT 99; BMI 24.0
--- NOTE | 2021-11-20 16:44 | EKG12_ITS ---
Test Reason : CHEST PAIN Blood Pressure : / mmHG Vent. Rate : 063 BPM Atrial Rate : 042 BPM P-R Int : 000 ms QRS Dur : 088 ms QT Int : 438 ms P-R-T Axes : 000 044 039 degrees QTc Int : 448 ms Atrial fibrillation with premature ventricular or aberrantly conducted complexes Abnormal ECG Confirmed by CLINT KLEIN, RUFUS ([id number]), medical transcription editor SIMÓN BEDOLLA ([id number]) on 11/23/2021 12:15:11 PM Referred By: ALEXIS Confirmed By:RUFUS JARAMILLO MD
--- NOTE | 2021-11-20 17:16 | EX.ED.DYSGE1 ---
HPI History of Present Illness Chief Complaint: Suicidal Informant: patient and spouse/S.O. Narrative Narrative: Patient has some suicidal thoughts. Patient is a history of PTSD from [place]. [facility] but [facility] really [facility] to help. He then was seeing his primary physician for many years for therapy. For the last 10 or 15 years but he has been [facility] with the [facility]. He is on medication to help with this. He also drinks alcohol. He will drink up to a 12 pack a day. He states he never drinks much at one time. But he will have 1 or 2 beers in the morning and then a few throughout the day. He never gets shakes if he does not drink. He has never had withdrawal symptoms. There is been a lot of family stress recently. He is now having suicidal thoughts. He states this is the worst it has ever been. PFSH PFSH Medical History Atrial fibrillation Cardiomyopathy Cerebrovascular accident (CVA) Chest pain 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 Dyspnea on exertion Edema Essential hypertension Fatigue History of cardioversion (06/27/19) Hyperlipidemia Nonischemic cardiomyopathy Nonrheumatic mitral (valve) insufficiency Orthopnea Osteoarthritis Paroxysmal atrial fibrillation Pleural effusion, right Pre-operative cardiovascular examination, left ventricular ejection fraction < 35% PTSD (post-traumatic stress disorder) Shortness of breath Strain of left rotator cuff capsule Systolic congestive heart failure Tobacco use Home Medications duloxetine 60 mg capsule,delayed release 60 mg PO DAILY 02/14/19 [History Last Taken 03/14/19] fivoikli-cnw-MG-lycopen-lutein 1 ea PO DAILY 07/18/19 [History Last Taken Unknown] aspirin 81 mg tablet,delayed release 81 mg PO DAILY 12/01/20 [History Last Taken Unknown] atorvastatin 40 mg tablet 40 mg PO QHS #90 tab 12/01/20 [Rx Last Taken Unknown] tamsulosin 0.4 mg capsule 0.4 mg PO 1800 cap 12/01/20 [History Last Taken Unknown] lisinopril 10 mg tablet 10 mg PO DAILY #90 tab 06/04/21 [Rx Last Taken Unknown] rivaroxaban 20 mg tablet 20 mg PO DAILY #90 tab 08/05/21 [Rx Last Taken Unknown] zinc gluconate 50 mg tablet 50 mg PO DAILY 11/13/21 [History Last Taken Unknown] Allergy/AdvReac Type Severity Reaction Status Date / Time No Known Allergies Allergy Verified 11/13/21 09:47 Family History Mother CVA (cerebral vascular accident) Hypertension Surgical History History of bilateral inguinal hernia repair History of left heart catheterization (LHC) (~10/02/20) History of lumbar laminectomy History of right and left heart catheterization (03/14/19) Social History household members: spouse pets and animals: Yes pets and animals: cat(s) and dog(s) Smoking Status: Current every day smoker tobacco type: cigars Tobacco: How many years used: 50 second hand exposure: Yes alcohol intake: current alcohol intake frequency: a few times a week substance use type: does not use ROS ROS ED Constitutional Constitutional ED: Denies chills or fever(s) ENT ENT ED: Denies rhinorrhea or sore throat Cardiovascular Cardiovascular: Reports other Details: History of atrial fibrillation. No complaints related to it though. ; Denies chest pain or palpitations Respiratory/Chest Respiratory/Chest: Denies cough or dyspnea Gastrointestinal Gastrointestinal: Denies abdominal pain, nausea or vomiting Genitourinary Genitourinary ED: Denies dysuria Musculoskeletal Musculoskeletal: Denies myalgias Integumentary Denies rash Neurologic Neurologic: Denies headache(s) Psychiatric Psychiatric: Reports depression and suicidal thoughts Endocrine Endocrinology: Denies polydipsia or polyuria Allergic/Immunologic Allergic/Immunologic ED: Denies urticaria EXAM Physical Exam Const Vital Signs: 11/20/21 16:13 11/20/21 21:10 Temperature 98.0 F Temperature Source Oral Pulse Rate 64 56 L Respiratory Rate 14 16 Blood Pressure 129/87 H 143/86 H Blood Pressure Mean 101 105 Pulse Ox 99 97 Oxygen Delivery Method Room Air Room Air Positive well nourished and well developed General Appearance ED: well developed and NAD; Negative for cyanotic, diaphoretic or pallor HEENT Negative for trauma or tenderness Eyes General Eye ED: Negative for pale conjunctiva or scleral icterus Neck no JVD Chest Wall inspection of chest normal Resp normal respiratory effort and clear to auscultation bilaterally Cardio regular rate Rhythm: abnormal rhythm GI normal to inspection, nondistended, normoactive bowel sounds and non-tender Palpation: soft Back/Spine no CVA tenderness Extremity normal to inspection General Extremety ED: Negative for edema or tenderness General Extremity: Negative for edema Neuro oriented x3 Sensorium / Orientation: alert Psych mental status grossly normal Attitude: No agitated Mood & Affect: Negative for anxious or tearful Skin no rashes or lesions noted General Skin Exam: Negative for jaundice or pallor MDM MDM MDM Narrative Medical decision making narrative: Patient CBC shows minimal anemia. Electrolytes show no marked abnormalities. Tox is. The ayala was 181. Repeat was 80. Patient still calm here. It sounds like the patient has actually been accepted at [facility] but we are pending [facility] with [facility] as [facility]. They need to let us know if they do or do not have a bed. It sounds like they do not have a bed but they are waiting for an official refusal due to bed availability. Lab Data Attestation: I reviewed the patient's lab results. Labs: Laboratory Results - last 24 hr 11/20/21 11/20/21 11/20/21 14:15 16:25 16:25 WBC 5.4 RBC 3.82 L Hgb 12.9 L Hct 37.6 L MCV 98.4 H MCH 33.8 H MCHC 34.3 RDW Std Deviation 46.2 H RDW Coeff of Medardo 12.9 Plt Count 202 MPV 9.7 Immature Gran % (Auto) 0.200 Neut % (Auto) 51.7 Lymph % (Auto) 33.8 [place] % (Auto) 10.1 H Eos % (Auto) 3.3 Baso % (Auto) 0.9 Absolute Neuts (auto) 2.8 Absolute Lymphs (auto) 1.84 Nucleated RBC % 0 Sodium 134 L Potassium 3.6 Chloride 101 Carbon Dioxide 28.0 Anion Gap 5 BUN 10 Creatinine 0.95 Estim Creat Clear Calc 80.52 Est GFR (MDRD) Af Amer 100 Est GFR (MDRD) Non-Af 83 BUN/Creatinine Ratio 10.6 Glucose 94 Calcium 8.7 Urine Opiates Screen NEGATIVE Urine Methadone Screen NEGATIVE Ur Barbiturates Screen NEGATIVE Ur Phencyclidine Scrn NEGATIVE Ur Amphetamines Screen NEGATIVE U Methamphetamin-MDMA NEGATIVE U Benzodiazepines Scrn NEGATIVE Urine Cocaine Screen NEGATIVE U Cannabinoids Screen NEGATIVE Ur Drug Screen Comment Ethyl Alcohol 11/20/21 11/20/21 16:25 21:50 WBC RBC Hgb Hct MCV MCH MCHC RDW Std Deviation RDW Coeff of Medardo Plt Count MPV Immature Gran % (Auto) Neut % (Auto) Lymph % (Auto) [place] % (Auto) Eos % (Auto) Baso % (Auto) Absolute Neuts (auto) Absolute Lymphs (auto) Nucleated RBC % Sodium Potassium Chloride Carbon Dioxide Anion Gap BUN Creatinine Estim Creat Clear Calc Est GFR (MDRD) Af Amer Est GFR (MDRD) Non-Af BUN/Creatinine Ratio Glucose Calcium Urine Opiates Screen Urine Methadone Screen Ur Barbiturates Screen Ur Phencyclidine Scrn Ur Amphetamines Screen U Methamphetamin-MDMA U Benzodiazepines Scrn Urine Cocaine Screen U Cannabinoids Screen Ur Drug Screen Comment Ethyl Alcohol 181.0 80.0 EKG Initial EKG: Comments: Done for medical clearance read by me shows atrial fibrillation with controlled rate of 63.. Possibly 1 PVC but there is a lot of baseline variation. And motion artifact. QRS duration and QTc normal. No sign of acute ST elevation or depression. Discharge Plan Triage Chief Complaint: Suicidal ED Provider: Rocky Alvarado Dx/Rx/DC Orders Clinical Impression: Depression with suicidal ideation, Post traumatic stress disorder, Alcohol intoxication Prescriptions: No Action duloxetine 60 mg capsule,delayed release(DR/EC) 60 mg PO DAILY RF: 0 tamsulosin 0.4 mg capsule 0.4 mg PO 1800 RF: 0 aspirin [Adult Aspirin Regimen] 81 mg tablet,delayed release (DR/EC) 81 mg PO DAILY RF: 0 Hold Instructions: NOSEBLEEDS atorvastatin 40 mg tablet 40 mg PO QHS Qty: 90 RF: 3 lisinopril 10 mg tablet 10 mg PO DAILY Qty: 90 RF: 3 zinc gluconate 50 mg tablet 50 mg PO DAILY RF: 0 zzwjjyul-vnw-BN-lycopen-lutein 1 EACH tablet 1 ea PO DAILY RF: 0 rivaroxaban 20 mg tablet 20 mg PO DAILY Qty: 90 RF: 3 Hold Instructions: NOSEBLEEDs Primary Care Provider: Reymundo Zavala Referrals: Reymundo Zavala MD [Primary Care Provider] - Disposition Disposition: Psychiatric Hospital or Unit
[2021-11-20 17:24] LABS: Absolute Lymphocyte Count 1.84 X10^3/uL (0.83-4.51); Absolute Neutrophil Count 2.8 X10^3/uL (2.0-7.7); Basophil# 0.05 X10^3/uL; Basophil% 0.9 % (0-1); Eosinophil# 0.18 X10^3/uL; Eosinophils% 3.3 % (0-5); Hematocrit 37.6 % (40-54); Hemoglobin 12.9 g/dL (13.0-16.5); Lymphocyte # 1.84 X10^3/ul (0.83-4.51); Lymphocyte % 33.8 % (19-41); Mean Corp Hgb Conc 34.3 g/dL (32-36); Mean Corpuscular Hgb 33.8 pg (27.0-32.0); Mean Corpuscular Volume 98.4 fL (80-94); Mean Platelet Vol. 9.7 fl (6.2-12.0); Monocyte# 0.55 X10^3/uL; Monocyte% 10.1 % (0-10); NRBC Flagged by Analyzer 0 % (0-5); Neutrophil # 2.81 X10^3/uL (2.7-7.7); Neutrophil % 51.7 % (47-70); Platelet Count 202 K/mm3 (150-450); RBC Distribution Width CV 12.9 % (11.6-14.6); RBC Distribution Width SD 46.2 fl (35.1-43.9); Red Blood Count 3.82 M/mm3 (4.6-6.2); White Blood Count 5.4 K/mm3 (4.4-11.0)
[2021-11-20 17:39] LABS: Anion Gap 5 (5-15); BUN 10 mg/dL (7-18); BUN/Creat Ratio 10.6 RATIO (10-20); Calcium,Total 8.7 mg/dL (8.5-10.1); Chloride 101 mmol/L (98-107); Creatinine, Serum 0.95 mg/dL (0.70-1.30); EST Glomerular Filtration Rate 83 mL/min (>60); Est Glom Filt Rate - Afr Amer 100 mL/min (>60); Estimated Creatinine Clearance 80.52 ml/min; Glucose 94 mg/dL (74-106); Potassium 3.6 mmol/L (3.5-5.1); Sodium Level 134 mmol/L (136-145)
[2021-11-20 18:32] LABS: Amphetamine Urine VISTA NEGATIVE (<1000 ng/mL); Barbiturate Urine VISTA NEGATIVE (< 200 ng/mL); Benzodiazepine Urine VISTA NEGATIVE (< 200 ng/mL); Cocaine Urine VISTA NEGATIVE (< 300 ng/mL); Ecstacy Urine VISTA NEGATIVE (< 500 ng/mL); Methadone Urine VISTA NEGATIVE (< 300 ng/mL); PCP Urine VISTA NEGATIVE (< 25 ng/mL); THC Urine VISTA NEGATIVE (< 50 ng/mL); Vista UDS pH Range 6
[2021-11-20 21:10] VITALS: BP 143/86; PULSE 56; RESP 16; O2SAT 97
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
--- NOTE | 2021-11-20 22:44 | CM.ED ---
GABBY Note SW spoke to [facility] they have beds. SW advised of the presentation. They advised that the [facility] needs [facility] and then they can consider patient for placement. GABBY faxed referral to [facility]. GABBY requested from supervisor evaporator Ryan that [facility] be notified that patient is in the ED and needs psych hospitalization. Plan: [facility] pending Jennifer PALOMO
--- NOTE | 2021-11-20 23:45 | ED.RN ---
CALLED PHYSICIANS THE ETA IS GOING TO BE 3-4 HOURS, ASKED THEM TO SEE IF THEY COULD OUT SOURCE.
--- NOTE | 2021-11-20 23:50 | CM.ED ---
Addendum entered by Jennifer Estrada 11/21/21 00:13: GABBY called [employer] Notification act and spoke to Dandy. She was advised patient is in the ED at [facility] and will transfer to [facility]. Dandy said that [facility] will need to call for notification also. Notification approved [id number]. Authorization Number [id number]. JACQUELINE Snell updated patient's . Jennifer Estrada MSW [facility] Original Note: Gabby received call from [facility]. They needed patient MMO admission information. As of this time, GABBY has not received [facility] for [facility]. Patient accepted at [facility]. Dual Diagnosis Unit. RN TO RN [phone]. Accepting MD is Dr. Eliz Greene at [facility]. Radha, church secretary arranged transport. Patient is asleep. GABBY requested patient's RN Channing update patient and patient's that patient is going to [facility]. GABBY provided patient's RN with [facility] brochure. GABBY faxed pink slip to [facility].
[2021-11-21] VITALS: RESP 16
[2021-11-21 00:36] VITALS: BP 170/98; PULSE 62; RESP 16; TEMP 36.6; O2SAT 98
[2021-11-21 01:09] VITALS: BP 152/89; PULSE 62; RESP 16; TEMP 36.6; O2SAT 98
== END 2021-11-21 01:14 ==
PROVIDERS: Emergency Provider Emergency Medicine; PCP Family Medicine; Visit Provider Emergency Medicine
DX: F32.A Depression, unspecified (principal); J44.9 Chronic obstructive pulmonary disease, unspecified; I11.0 Hypertensive heart disease with heart failure; I42.8 Other cardiomyopathies; I50.22 Chronic systolic (congestive) heart failure; F10.129 Alcohol abuse with intoxication, unspecified; I48.0 Paroxysmal atrial fibrillation; R45.851 Suicidal ideations; D64.9 Anemia, unspecified; E78.5 Hyperlipidemia, unspecified; F17.290 Nicotine dependence, other tobacco product, uncomplicated; F43.10 Post-traumatic stress disorder, unspecified; Z86.73 Personal history of transient ischemic attack (TIA), and cerebral infarction without residual deficits; I34.0 Nonrheumatic mitral (valve) insufficiency; Z79.82 Long term (current) use of aspirin; Z79.899 Other long term (current) drug therapy; Y90.9 Presence of alcohol in blood, level not specified
CPT/HCPCS: 36415; 80048; 80307; 82077; 85025; 87426; 93005; 99285

== ENCOUNTER 2021-12-02 09:07 | Outpatient (CLI) | payer MEDICARE, SELFPAY ==
[2021-12-02 10:13] LABS: AST(SGOT) 18 U/L (15-37); Alanine Aminotransfer ALT/SGPT 26 U/L (16-61); Albumin, Serum 3.4 g/dL (3.2-5.0); Alkaline Phosphatase 75 U/L (45-117); Bilirubin, Direct 0.18 mg/dL (0.00-0.30); Cholesterol 114 mg/dL (200); Globulin 4.4 g/dL (2.2-4.2); High Density Lipoprotein 60 mg/dL; Protein, Total 7.8 g/dL (6.4-8.2); Thyroid Stim Hormone (TSH) 0.82 uIU/mL (0.358-3.74); Triglycerides 61 mg/dL; Very Low Density Lipoprotein 12 mg/dL (5-40)
== END 2021-12-02 23:59 | disposition home or self-care (01) ==
LOC: LAB 09:08
PROVIDERS: PCP Family Medicine; Referring Provider Internal Medicine Cardiovascular Disease; Visit Provider Internal Medicine Cardiovascular Disease
DX: I50.22 Chronic systolic (congestive) heart failure (principal); I11.0 Hypertensive heart disease with heart failure; I48.0 Paroxysmal atrial fibrillation; I25.10 Atherosclerotic heart disease of native coronary artery without angina pectoris
CPT/HCPCS: 36415; 80061; 80076; 84443

== ENCOUNTER 2021-12-09 06:54 | Outpatient (CLI) | payer MEDICARE, SELFPAY ==
--- NOTE | 2021-12-09 07:00 | ECHOD_ITS ---
Reason For Study: AFIB/FLUTTER Procedure This was a 2D Doppler, Color Flow transthoracic echocardiogram. The study was technically difficult. Exam performed in department. Left Ventricle Normal LV size. Left ventricular systolic function is lower limits of normal. The estimated ejection fraction is 50 %. Unable to assess diastolic dysfunction. Right Ventricle Normal RV size. Normal systolic function. Atria The left atrium is mildly enlarged. The right atrium is mildly enlarged. No doppler evidence for ASD. Mitral Valve There is no mitral annular calcification. Anterior leaflet diffuse mitral valve thickening. Mild (1+) mitral valve insufficiency. Tricuspid Valve Normal tricuspid valve. Mild tricuspid valve insufficiency. Right ventricular systolic pressure estimated to be 29 mmHg. Aortic Valve The aortic valve is not well visualized. Pulmonic Valve The pulmonic valve is not well visualized. Great Vessels Calcified aortic root. Pericardium/Pleural No pericardial effusion. MMode/2D Measurements & Calculations LVIDd: 5.2 cm IVSd: 1.1 cm LAV(MOD-bp): 102.2 ml LVIDs: 4.1 cm LVPWd: 0.91 cm LAV(MOD-bp) Indexed: 49.0 ml/m2 RVDd: 3.6 cm FS: 22.7 % LAV(MOD-sp2): 98.1 ml LAV(MOD-sp4): 91.5 ml LA dimension(2D): 4.1 cm LA A4 area: 25.5 cm2 RA A4 area: 24.2 cm2 Doppler Measurements & Calculations MV E max liya: 98.6 cm/sec Ao V2 max: 110.2 cm/sec LV V1 max: 87.2 cm/sec Ao max P.9 mmHg LV V1 max P.0 mmHg PA V2 max: 87.1 cm/sec TR max liya: 253.2 cm/sec TR max P.7 mmHg ECHO/Echo Complete Interpretation Summary The study was technically difficult. Left ventricular systolic function is lower limits of normal. The estimated ejection fraction is 50 %. The left atrium is mildly enlarged. The right atrium is mildly enlarged. Anterior leaflet diffuse mitral valve thickening. Mild (1+) mitral valve insufficiency. Mild tricuspid valve insufficiency. Calcified aortic root. Right ventricular systolic pressure estimated to be 29 mmHg. Unable to assess diastolic dysfunction. Ordering Physician: Bryon Zacarias Referring Physician: Bryon Zacarias Performed By: Ani Moreira, VIANEY, RVT
--- NOTE | 2021-12-09 10:11 | STRESSREP ---
Stress Test Report Date: 12-09-2021 Procedure: Exercise tolerance test/imaging study Indications: Chest pain; CAD; cardiomyopathy; mitral valve regurgitation; paroxysmal atrial fibrillation Consent: Per the patient Procedure: The patient exercised on a Abraham protocol for 6 minutes and 30 seconds completing Stage II and 30 seconds of Stage III achieving a peak heart rate of 173 bpm (117% predicted maximal heart rate) with a peak blood pressure 154/72 mmHg and a peak MET capacity of 8 METs. The baseline ECG demonstrated atrial fibrillation. The peak exercise ECG demonstrated continued atrial fibrillation with no obvious ECG changes. There was occasional PVCs pretest, during exercise, and recovery. The functional capacity was considered. There was chest discomfort pretest, during exercise, and recovery without significant change. The examination was discontinued secondary to dyspnea. Impression: 1. Technically adequate (percent predicted maximal heart rate greater than 85%) exercise tolerance test 2. Peak exercise ECG with continued atrial fibrillation with no obvious ECG changes 3. There were occasional PVCs pretest, during exercise, and recovery 4. Nuclear images pending Myocardial perfusion imaging study: Technique: The patient was injected with 11.8 mCi of technetium 99m Cardiolite and subsequently rest SPECT Cardiolite nuclear imaging was obtained in the horizontal long, vertical long, and short axis views. The patient exercised on a Abraham protocol for 6 minutes and 30 seconds completing Stage II and 30 seconds of Stage III achieving a peak heart rate of 173 bpm (117% predicted maximal heart rate) with a peak blood pressure 154/72 mmHg and a peak MET capacity of 8 METs. The patient was injected with 32.4 mCi of technetium 99m Cardiolite and subsequently stress SPECT Cardiolite nuclear imaging was obtained in the horizontal long, vertical long, and short axis views. A gated Cardiolite study at peak stress was obtained. Interpretation: Rest and stress SPECT Cardiolite nuclear imaging status post realignment, normalization, and attenuation correction, demonstrates the appearance of relative uniform tracer uptake and myocardial perfusion appearing within normal limits. There is end systolic thickening and brightening. The gated Cardiolite study demonstrates myocardial thickening and inward wall motion. The reported LVEF is 42%. Impression: 1. Rest and stress SPECT Cardiolite nuclear imaging demonstrate relative uniform tracer uptake and myocardial perfusion appearing within normal limits. 2. The gated Cardiolite study reports an LVEF of 42%. This note was generated with [employer]atek software. It may contain incorrect words, spelling, and punctuation that were not noted in checking the note before signing.
== END 2021-12-09 23:59 | disposition home or self-care (01) ==
LOC: CVS 06:55
PROVIDERS: PCP Family Medicine; Referring Provider Internal Medicine Cardiovascular Disease; Visit Provider Internal Medicine Cardiovascular Disease
DX: I25.10 Atherosclerotic heart disease of native coronary artery without angina pectoris (principal); I42.0 Dilated cardiomyopathy; I50.22 Chronic systolic (congestive) heart failure; I11.0 Hypertensive heart disease with heart failure; I48.0 Paroxysmal atrial fibrillation; I34.0 Nonrheumatic mitral (valve) insufficiency; E78.5 Hyperlipidemia, unspecified; R53.83 Other fatigue; R07.9 Chest pain, unspecified
CPT/HCPCS: 78452; 93017; 93306; A9500; A4216

== ENCOUNTER → 2022-02-11 | Outpatient (CLI) | payer MEDICARE, SELFPAY ==
--- NOTE | 2022-02-11 09:40 | RAD_ITS ---
STUDY: X-RAY CHEST REASON FOR EXAM: Male, 72 years old. Cardiac Catheterization TECHNIQUE: 2 views COMPARISON: 03/12/2019 FINDINGS: Cardiomediastinal silhouette is unremarkable. Costophrenic angles are blunted on the lateral view. Lungs are hyperinflated but clear. The trachea is midline. There is no pneumothorax. Multilevel thoracic spondylosis is seen. RAD/Chest PA and Lateral IMPRESSION: Blunted costophrenic angles, due to trace pleural effusions versus chronic pleuroparenchymal changes. COPD. Electronically Signed: Mark Mayers MD at 3:00 EDT ,
[2022-02-11 10:13] LABS: Absolute Neutrophil Count 3.6 X10^3/uL (2.0-7.7); Basophil# 0.04 X10^3/uL; Basophil% 0.7 % (0-1); Eosinophil# 0.17 X10^3/uL; Hematocrit 38.1 % (40-54); Hemoglobin 13.1 g/dL (13.0-16.5); Lymphocyte % 19.3 % (19-41); Mean Corp Hgb Conc 34.4 g/dL (32-36); Mean Corpuscular Hgb 34.1 pg (27.0-32.0); Mean Corpuscular Volume 99.2 fL (80-94); Mean Platelet Vol. 9.5 fl (6.2-12.0); Monocyte# 0.74 X10^3/uL; NRBC Flagged by Analyzer 0 % (0-5); Neutrophil # 3.63 X10^3/uL (2.7-7.7); Neutrophil % 63.8 % (47-70); Platelet Count 215 K/mm3 (150-450); RBC Distribution Width CV 13.5 % (11.6-14.6); RBC Distribution Width SD 49.3 fl (35.1-43.9); Red Blood Count 3.84 M/mm3 (4.6-6.2); White Blood Count 5.7 K/mm3 (4.4-11.0)
[2022-02-11 10:22] LABS: International Normalized Ratio 1.7; Partial Thromboplast Time 34.6 Seconds (24.1-36.2); Prothrombin Time (Protime)PT. 19.5 SECONDS (11.7-14.9)
[2022-02-11 10:46] LABS: Anion Gap 7 (5-15); BUN 10 mg/dL (7-18); BUN/Creat Ratio 10.2 RATIO (10-20); Calcium,Total 8.6 mg/dL (8.5-10.1); Chloride 106 mmol/L (98-107); Creatinine, Serum 0.98 mg/dL (0.70-1.30); EST Glomerular Filtration Rate 80 mL/min (>60); Est Glom Filt Rate - Afr Amer 96 mL/min (>60); Glucose 121 mg/dL (74-106); Potassium 3.9 mmol/L (3.5-5.1); Sodium Level 140 mmol/L (136-145)
== END | disposition home or self-care (01) ==
PROVIDERS: PCP Family Medicine; Referring Provider Nurse Practitioner Gerontology; Visit Provider Nurse Practitioner Gerontology
DX: R07.9 Chest pain, unspecified (principal)
CPT/HCPCS: 36415; 71046; 80048; 85025; 85610; 85730

== ENCOUNTER 2022-03-09 08:29 | Day surgery (SDC) | payer MEDICARE, SELFPAY ==
[2022-03-08 07:14] VITALS: BMI 22.6
--- NOTE | 2022-03-08 16:34 | HP.PCM_ITS ---
History and Physical Date of Admission: 03/09/22 [facility] [address], [place] [phone] OFFICE VISITDate of Service: 02/11/22 MR#:[id number]:[id number]: BRYON SANTOYO #[id number] Provider: ELPIDIO Zapata/Sex: 72/M Location:[facility]:Signed HPI HPI History of Present Illness Surgical H&P: Yes Details: This is a 72-year-old male who presents to the office today for an outpatient cardiovascular follow-up. He has a history of underlying CAD, nonischemic mediated cardiomyopathy, chronic systolic CHF, paroxysmal atrial fibrillation, mitral valve regurgitation, hyperlipidemia, hypertension, superimposed upon a history of alcohol abuse and tobacco abuse. As you recall he has undergone previous noninvasive and invasive studies locally at [place]. He has also had previous studies performed at [facility] in [place], [place] in September 2020. Those studies are noted below. He does have an occasional palpitations-he describes this as a fluttering sensation. He does continue to have intermittent chest pain. He states this is usually with exertion, where he feels a centralized chest discomfort and becomes short of breath. He states he will push through these episodes to keep doing what he wants to do. He does not notice these episodes at rest or at night. He states the chest discomfort does not necessarily radiate. It is not necessarily associated with nausea, emesis, or diaphoresis. He does have SOB with exertion, and at rest. He states this is not new or worsening. He denies Orthopnea, and PND. He does not have bleeding issues; no blood in urine, stool or nosebleeds. He does continue to have fatigue. He denies myalgias, or claudication. He denies edema, or sudden weight gain. He states that he has lost 10lbs over the last 3 months without trying. He does have an occasional lightheadedness- attributing that to his CVA. He denies dizziness, syncopal or near syncopal episodes, and headaches. He does smoke 1/2 pack a day, and drinks about 2 beers a day. 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 Machine Operator Required: No Accompanied by: no one Is patient in pain?: No Allergies No Known Allergies Allergy (Verified 02/11/22 08:55) Medications duloxetine 60 mg capsule,delayed release 60 mg PO DAILY 02/14/19 [History Confirmed 02/11/22] oyjcghtm-lig-NL-lycopen-lutein 1 ea PO DAILY 07/18/19 [History Confirmed 02/11/22] aspirin 81 mg tablet,delayed release 81 mg PO DAILY 12/01/20 [History Confirmed 02/11/22] atorvastatin 40 mg tablet 40 mg PO QHS #90 tab 12/01/20 [Rx Confirmed 02/11/22] tamsulosin 0.4 mg capsule 0.4 mg PO 1800 cap 12/01/20 [History Confirmed 02/11/22] lisinopril 10 mg tablet 10 mg PO DAILY #90 tab 06/04/21 [Rx Confirmed 02/11/22] rivaroxaban 20 mg tablet 20 mg PO DAILY #90 tab 08/05/21 [Rx Confirmed 02/11/22] zinc gluconate 50 mg tablet 50 mg PO DAILY 11/13/21 [History Confirmed 02/11/22] nitroglycerin 0.4 mg sublingual tablet 0.4 mg SUBLINGUAL Q5M PRN #25 tab [Rx Confirmed 02/11/22] PFSH Medical History Atrial fibrillation Cardiomyopathy Cerebrovascular accident (CVA) Chest pain 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 Dyspnea on exertion Edema Essential hypertension Fatigue History of cardioversion (06/27/19) Hyperlipidemia Nonischemic cardiomyopathy Nonrheumatic mitral (valve) insufficiency Orthopnea Osteoarthritis Paroxysmal atrial fibrillation Pleural effusion, right Pre-operative cardiovascular examination, left ventricular ejection fraction < 35% PTSD (post-traumatic stress disorder) Shortness of breath Strain of left rotator cuff capsule Systolic congestive heart failure Tobacco use Surgical History History of bilateral inguinal hernia repair History of left heart catheterization (LHC) (~10/02/20) History of lumbar laminectomy History of right and left heart catheterization (03/14/19) Family History (Reviewed 02/11/22 @ 08:54 by Teri Tolbert ACCOUNT EXECUTIVE KEY ACCOUNTS, ACCOUNT EXECUTIVE KEY ACCOUNTS-C) Mother CVA (cerebral vascular accident) Hypertension Social History household members: spouse pets and animals: Yes pets and animals: cat(s) and dog(s) Smoking Status: Current every day smoker tobacco type: cigars Tobacco: How many years used: 50 second hand exposure: Yes alcohol intake: current alcohol intake frequency: a few times a week substance use type: does not use ROS Const Const: Positive for fatigue and weight loss; Negative for weakness, fever(s), headache(s), chills, frequent falls or weight gain Eyes Eyes: Negative for blind spots, loss of peripheral vision, transient loss of vision, blurry vision, change in vision, double vision, floaters or tunnel vision ENT ENT: Negative for headache(s), dizziness, Nosebleed/epistaxis, balance problems or neck pain Cardio Chest Pain: Yes Character: dull Onset: exercise Location: mid sternal Duration: minutes Exacerbation: exercise Relieving: rest Palpitations: Yes (occasional-fluttering sensation) Edema: None Muscle aches with walking: None Resp Respiratory: Positive for SOB with activity and SOB at rest; Negative for SOB orthopnea\SOB lying down GI GI: Negative nausea, vomiting, heartburn, bloating, vomiting blood/hematemesis, bright, red blood in stools or black,tarry stools Musc Musc: Negative for muscle aches/ myalgia, muscle weakness, joint pain or balance problems Neuro Neuro: Positive for lightheadedness (attributes this to his CVA); Negative for dizziness, near syncope, syncope, orthostatic symptoms, frequent falls, headache(s), weakness, blurry vision or double vision Mickey Hematologic/Lymphatic: Negative for easy bleeding or easy bruising Endo Endo: Positive for fatigue Cardiology Exam Const Appearance: cooperative and no acute distress Orientation: alert and oriented x3 Head Head: normal to inspection Ears: hearing grossly normal bilaterally Nose: external nose normal Face and Sinus: face symmetric Eyes General: appearance normal, both eyes and all related structures Eyelids: eyelids normal Conjunctivae: conjunctivae normal Pupils: PERRL and pupil size EOM: EOM intact bilaterally Neck Neck: normal visual inspection Carotids: Negative bruit Chest Chest inspection: normal inspection of the chest and normal respiratory effort Auscultation: Bilateral: Clear to Auscultation Cardio Palpation: normal PMI Rate: regular rate Rhythm: irregularly irregular Heart sounds: S1 normal and S2 normal; Negative rub, gallop or murmur GI GI: normal to inspection and soft; Negative no hepatosplenomegaly Neuro General: patient alert, patient oriented x3 and CN's II-XI intact bilaterally Skin Skin: no rashes or lesions noted Extremities Pulses: Normal: Right Posterior Tibial Pulse, Left Posterior Tibial Pulse, Right Radial Pulse and Left Radial Pulse Lower Extremity Edema: None: Bilateral Psych Psychological: normal affect Supplemental Info Supplemental Information Echocardiogram 12/09/2021: Interpretation Summary The study was technically difficult. Left ventricular systolic function is lower limits of normal. The estimated ejection fraction is 50 %. The left atrium is mildly enlarged. The right atrium is mildly enlarged. Anterior leaflet diffuse mitral valve thickening. Mild (1+) mitral valve insufficiency. Mild tricuspid valve insufficiency. Calcified aortic root. Right ventricular systolic pressure estimated to be 29 mmHg. Unable to assess diastolic dysfunction. Stress Test 12/09/2021: Procedure: Exercise tolerance test/imaging study Indications: Chest pain; CAD; cardiomyopathy; mitral valve regurgitation; paroxysmal atrial fibrillation Consent: Per the patient Procedure: The patient exercised on a Abraham protocol for 6 minutes and 30 seconds completing Stage II and 30 seconds of Stage III achieving a peak heart rate of 173 bpm (117% predicted maximal heart rate) with a peak blood pressure 154/72 mmHg and a peak MET capacity of 8 METs. The baseline ECG demonstrated atrial fibrillation. The peak exercise ECG demonstrated continued atrial fibrillation with no obvious ECG changes. There was occasional PVCs pretest, during exercise, and recovery. The functional capacity was considered. There was chest discomfort pretest, during exercise, and recovery without significant change. The examination was discontinued secondary to dyspnea. Impression: 1. Technically adequate (percent predicted maximal heart rate greater than 85%) exercise tolerance test 2. Peak exercise ECG with continued atrial fibrillation with no obvious ECG changes 3. There were occasional PVCs pretest, during exercise, and recovery 4. Nuclear images pending Myocardial perfusion imaging study: Technique: The patient was injected with 11.8 mCi of technetium 99m Cardiolite and subsequently rest SPECT Cardiolite nuclear imaging was obtained in the horizontal long, vertical long, and short axis views. The patient exercised on a Abraham protocol for 6 minutes and 30 seconds completing Stage II and 30 seconds of Stage III achieving a peak heart rate of 173 bpm (117% predicted maximal heart rate) with a peak blood pressure 154/72 mmHg and a peak MET capacity of 8 METs. The patient was injected with 32.4 mCi of technetium 99m Cardiolite and subsequently stress SPECT Cardiolite nuclear imaging was obtained in the horizontal long, vertical long, and short axis views. A gated Cardiolite study at peak stress was obtained. Interpretation: Rest and stress SPECT Cardiolite nuclear imaging status post realignment, normalization, and attenuation correction, demonstrates the appearance of relative uniform tracer uptake and myocardial perfusion appearing within normal limits. There is end systolic thickening and brightening. The gated Cardiolite study demonstrates myocardial thickening and inward wall motion. The reported LVEF is 42%. Impression: 1. Rest and stress SPECT Cardiolite nuclear imaging demonstrate relative uniform tracer uptake and myocardial perfusion appearing within normal limits. 2. The gated Cardiolite study reports an LVEF of 42%. Transthoracic echocardiogram from 07/24/2019: Interpretation Summary Mildly dilated left ventricle. The estimated ejection fraction is 40-45 %. Stage 2 diastolic dysfunction. There is mild to moderate global hypokinesis of the left ventricle. Moderately dilated right ventricle. The left atrium is severely enlarged. The right atrium is severely enlarged. Trivial mitral valve insufficiency. Trivial tricuspid valve insufficiency. Right ventricular systolic pressure estimated to be 32 mmHg. Bubble contrast study negative for right to left interatrial shunt. The study was technically difficult. Contrast injection was performed. There is no comparison study available. Echocardiogram from 10/02/2020 Left ventricular ejection fraction 50-55% and moderately dilated left atrium. No significant valvular abnormality was noted. Heart catheterization from 03/14/2019: CORONARY ANGIOGRAPHY DOMINANCE: Right Dominant LEFT HEART ASSESSMENT Left Ventricular Ejection Fraction: by LV Gram 10 % Global Hypokinesis - Severe LVEDP: 22 mmHg Depressed Left Ventricular systolic function RIGHT HEART ASSESSMENT Thermal CO: 5.34 Thermal CI: 2.47 Asim CO: 3.69 Asim CI: 1.71 PW: /22 16 PA: 44/15 25 RV: 40/-7 -1 RA: /1 0 PVR: 135 Right Heart pressures - elevated Pulmonary Hypertension Moderate LEFT MAIN: Angiographically normal LEFT ANTERIOR DESCENDING ARTERY: Angiographically normal CIRCUMFLEX ARTERY: Angiographically normal RIGHT CORONARY ARTERY: Angiographically normal Heart catheterization 10/02/2020 ([place], [place]) Three-vessel moderate nonocclusive coronary artery disease with left main is normal, LAD with 50% disease, diagonal with moderate disease, circumflex is a nondominant vessel with obtuse marginal branch with 50-60% stenosis, dominant RCA with distal 50% stenosis and PDA with mid vessel 40% stenosis. LV with regional wall motion abnormalities (anterior apical hypokinesis) with an LVEF of 40-45% Labs: LDL Cholesterol 42 mg/dL (0-130) HDL Cholesterol 60 mg/dL (40-) Triglycerides 61 mg/dL (-199) VLDL Cholesterol 12 mg/dL (5-40) Diagnostics: Electrocardiogram Echocardiogram Stress Test NM Stress Test Chest X-Ray Pulmonary: No Data to Display Assessment and Plan Assessment and Plan (1) Atherosclerosis of [place] coronary artery of [place] heart without angina pectoris: Status: Acute Orders: Orders: Left Heart Cath/COR/LV Percut 03/09/22 Plan - Teri Tolbert NP, ACCOUNT EXECUTIVE KEY ACCOUNTS-C: Patient has a history of coronary artery disease. His most recent cardiac catheterization from 09/2020 demonstrated three vessel moderate nonocclusive coronary artery disease. His most recent stress test 11/2021 was negative for isc hemia. He continues to have chest discomfort, fatigue and dyspnea with exertion. After discussing with Dr. Zacarias, patient will undergo a cardiac catheterization to reevaluate his coronary arteries. (2) Cardiomyopathy: Status: Chronic Qualifiers: Cardiomyopathy type: dilated Qualified Code(s): I42.0 - Dilated cardiomyopathy Comment: Ef decreased from 47% in 2004 to 20-25% per echo 01/16/2019. Small focal anterior and inferior apical scar on stress test done 07/03/2004 @ [facility] Plan - Teri Tolbert NP, ACCOUNT EXECUTIVE KEY ACCOUNTS-C: Patient has a history of cardiomyopathy. His most recent echocardiogram from 11/2021 demonstrated an ejection fraction of 50%. He will continue with his current medical therapy, along with monitoring for any concerning symptoms. (3) Systolic congestive heart failure: Status: Chronic Qualifiers: Heart failure chronicity: chronic Qualified Code(s): I50.22 - Chronic systolic (congestive) heart failure Plan - Teri Tolbert NP, ACCOUNT EXECUTIVE KEY ACCOUNTS-C: Patient has a history of systolic congestive heart failure. He appears stable at this time. He will continue with his current medical therapy, along with monitoring for any concerning symptoms. (4) Paroxysmal atrial fibrillation: Status: Acute Rachid Tolbert NP, ACCOUNT EXECUTIVE KEY ACCOUNTS-C: Patient has a history of paroxysmal atrial fibrillation. His EKG from today demonstrates atrial flutter-fibrillation, frequent PVC's-ventricular bigeminy, heart rate 82. Depending upon his future findings at his next office visit, he may need a repeat attempt at synchronized biphasic DC cardioversion. At this time, he will continue rivaroxaban 20mg daily. (5) Nonrheumatic mitral (valve) insufficiency: Status: Chronic Comment: Mild per echo 01/16/2019 Rachid Tolbert NP, ACCOUNT EXECUTIVE KEY ACCOUNTS-C: Patient has a history of nonrheumatic mitral valve insufficiency. His most recent echocardiogram from 11/2021 demonstrated mild (1+) mitral valve insufficiency. We will continue to monitor this with history, exam, and echocardiograms as deemed appropriate. (6) Hyperlipidemia: Status: Chronic Qualifiers: Hyperlipidemia type: unspecified Qualified Code(s): E78.5 - Hyperli pidemia, unspecified Rachid Tolbert NP, ACCOUNT EXECUTIVE KEY ACCOUNTS-C: Patient has a history of hyperlipidemia. His most recent lipid panel from 12/02/2021: cholesterol 114, HDL 60, LDL 42, triglycerides 61. He will continue atorvastatin 40mg daily, along with aggressive risk factor and lifestyle modifications. (7) Essential hypertension: Status: Acute Rachid Tolbert NP, ACCOUNT EXECUTIVE KEY ACCOUNTS-C: Patient has a history of hypertension. His blood pressure is well controlled at this time. He will continue lisinopril 10mg daily, along with monitoring his blood pressures at home. (8) Chest pain: Status: Acute Orders: Orders: 12 Lead EKG performed by [facility] 02/11/22 Left Heart Cath/COR/LV Percut 03/09/22 Basic Metabolic Profile (BMP) 02/11/22 Partial Thromboplast Time 02/11/22 Prothrombin Time w/INR 02/11/22 CBC W/Diff, Automated 02/11/22 Chest PA and Lateral 02/11/22 Rachid Tolbert NP, ACCOUNT EXECUTIVE KEY ACCOUNTS-C: Patient continues to have complaints of chest pain, dyspnea and fatigue with exertion. His most recent cardiac catheterization from 09/2020 demonstrated three vessel moderate nonocclusive coronary artery disease. His most recent stress test 11/2021 was negative for ischemia. After discussing with Dr. Zacarias, patient will undergo a cardiac catheterization to reevaluate his coronary arteries. Patient will be given nitroglycerin 0.4mg PRN for chest pain. Patient was instructed on how to use nitroglycerin, and verbalizes understanding. (9) Fatigue: Status: Acute Plan - Teri Tolbert ACCOUNT EXECUTIVE KEY ACCOUNTS, ACCOUNT EXECUTIVE KEY ACCOUNTS-C: Patient has complaints of fatigue. We will obtain lab work to evaluate this, as well as a cardiac catheterization. Plan Details Other Medications: New: nitroglycerin do not exceed 3 doses per episode 0.4 mg sublingual Q5M PRN 25 tabs 3RF chest pain Additional Comments: Patient will follow up in 2 months, or sooner if needed. Thank you for allowing me to participate in the care of your patient. Please don't hesitate to call if any issues arise. This note was generated using a voice recognition system and there may be incorrect words, spelling, or punctuation that were not noted when reviewing the office note prior to saving. Follow Up: 2 Months (ACCOUNT EXECUTIVE KEY ACCOUNTS/PA) COVID (Procedure Consent) Procedure Criteria Procedure Criteria: Yes Elective The surgeon/proceduralist and patient have discussed in detail the risk of exposure to and/or potential harm posed by the COVID-19 virus with having a surgery/procedure at this time versus the risk of delaying the surgery/procedure. It is not possible to know either the risk of delaying the surgery or procedure or chance of getting an infection with perfect accuracy, but a joint decision was made between the patient and the surgeon/proceduralist to proceed at this time with the scheduled surgery/procedure as indicated on the consent form. Coding Level of Care Code Off vis,est,level 4 Diagnoses Atherosclerosis of [place] coronary artery of [place] heart without angina pectoris I25.10 Cardiomyopathy I42.0 Cardiomyopathy type: dilated Systolic congestive heart failure I50.22 Heart failure chronicity: chronic Paroxysmal atrial fibrillation I48.0 Nonrheumatic mitral (valve) insufficiency I34.0 Hyperlipidemia E78.5 Hyperlipidemia type: unspecified Essential hypertension I10 Chest pain R07.9 Fatigue R53.83 Coding Level of Care Code Off vis,est,level 4 Diagnoses Atherosclerosis of [place] coronary artery of [place] heart without angina pectoris I25.10 Cardiomyopathy I42.0 Cardiomyopathy type: dilated Systolic congestive heart failure I50.22 Heart failure chronicity: chronic Paroxysmal atrial fibrillation I48.0 Nonrheumatic mitral (valve) insufficiency I34.0 Hyperlipidemia E78.5 Hyperlipidemia type: unspecified Essential hypertension I10 Chest pain R07.9 Fatigue R53.83 02/14/222152<Electronically signed by Teri Tolbert ACCOUNT EXECUTIVE KEY ACCOUNTS ACCOUNT EXECUTIVE KEY ACCOUNTS-C>Date Teri Tolbert ACCOUNT EXECUTIVE KEY ACCOUNTS ACCOUNT EXECUTIVE KEY ACCOUNTS-C 02/27/222023<Electronically signed by Bryon Zacarias MD>Cosigner Signature:Date (if applicable)Bryon Zacarias MD CC: Dr. Reymundo Zavala MD ~ Assessment & Plan Addt'l Comments I have re-examined the patient. There are no clinical changes since date of exam
[2022-03-09 08:45] LABS: INR Fingerstick 1.2; Prothrombin Time Fingerstick 15.3 SEC (11.7-14.9)
--- NOTE | 2022-03-09 10:53 | CL.D_ITS ---
Patient Name: BRYON SANTOYO Study Date: 03/09/2022 Performing: Bryon Zacarias MD Ht: 74.01 inches 188 cm : 1950 Wt: 176.37 lbs 80 kg Age: 72 Gender: male BSA: 2.06 PROCEDURE(S) PERFORMED [id number]-([id number])[facility] CLINICAL PROFILE AND INDICATIONS Indications: Suspected CAD, Cardiomyopathy Heart Failure: None Stress/Imaging Date: 12/09/2021tress Test with SPECT MPI: Negative Angina Classification Anginal Classification w/in 2 Weeks: Anginal Equivalent Dyspnea CAD Presentations: Other: worsening chest pain / shortness of breath CONCLUSIONS Normal Left Ventricular End Diastolic Pressure [place] Multivessel CAD (non obstructive) RECOMMENDATIONS Risk factor modification Medical therapy DESCRIPTION OF PROCEDURE The patient arrived to the procedure lab. The risks and benefits of the procedure as well as a full d escription of our services here and current unavailability of surgical backup were fully explained to the patient and/or their significant other prior to the catheterization. The Timeout was completed, verifying the correct patient and procedure. The patient's procedural site was prepped and draped in the usual fashion. Local anesthetic was given subcutaneously to right radial region with Lidocaine 2% . Using a modified Seldinger technique, arterial access was obtained via the right radial artery, a 6 Fr sheath was inserted. Left Coronary Artery selective angiography was performed in multiple views u sing a 5 Fr. 4.0 [place] catheter. Right Coronary Artery selective angiography was then performed in mu ltiple views using a 5 Fr. 4.0 [place] catheter. LV to AO pullback pressures were then recorded.The art erial sheath was pulled and a TR Band was applied for hemostasis. 12cc of air CORONARY ANGIOGRAPHY DOMINANCE: Right Dominant LEFT HEART ASSESSMENT Left Ventricular Ejection Fraction: Not assessed Normal Left Ventricular End Diastolic Pressure LVEDP: 11 mmHg LEFT MAIN: Angiographically normal LEFT ANTERIOR DESCENDING ARTERY: Mild luminal irregularities DIAGONAL 2: Proximal - Mild luminal irregularities CIRCUMFLEX ARTERY: MID CIRC: Mild luminal irregularities RIGHT CORONARY ARTERY: Angiographically normal COMPLICATIONS No Complications PROCEDURE MEDICATIONS Fentanyl 50 mcg IV Versed 1 mg IV Oxygen: 2 L/min via nasal cannula Heparin given IA 03/09/2022 10:00:24 Verapamil 2.5mg, Ntg 100mcgs, 3000 units of Heparin given IA 03/09/2022 10:00:24 SUMMARY OF HEMODYNAMIC DATA Time AIR REST ECG 09:08:15 Art 179/97 (127) 09:56:39 LV 161/-4, 12 10:13:10 LV 157/-3, 11 10:13:16 LVp 161/-4, 12 10:13:28 AOp 156/88 (116) 10:13:33 Signed By Bryon Zacarias MD On 03/09/2022 10:53:09 Bryon Zacarias MD
== END 2022-03-09 12:35 | disposition home or self-care (01) ==
PROVIDERS: PCP Family Medicine; Referring Provider Internal Medicine Cardiovascular Disease; Visit Provider Internal Medicine Cardiovascular Disease
DX: I25.118 Atherosclerotic heart disease of native coronary artery with other forms of angina pectoris (principal); I11.0 Hypertensive heart disease with heart failure; I50.22 Chronic systolic (congestive) heart failure; I42.0 Dilated cardiomyopathy; I48.0 Paroxysmal atrial fibrillation; E78.5 Hyperlipidemia, unspecified; F17.290 Nicotine dependence, other tobacco product, uncomplicated; Z79.82 Long term (current) use of aspirin; Z79.899 Other long term (current) drug therapy; Z86.73 Personal history of transient ischemic attack (TIA), and cerebral infarction without residual deficits
CPT/HCPCS: 36416; 85610; 93454; 99152; 99153; J7040; Q9967; C1769; C1894

== ENCOUNTER → 2022-04-20 | Outpatient (CLI) | payer MEDICARE, SELFPAY ==
[2022-04-20 10:41] LABS: International Normalized Ratio 1.2; Prothrombin Time (Protime)PT. 14.7 SECONDS (11.7-14.9)
[2022-04-20 11:20] LABS: Anion Gap 7 (5-15); BUN 12 mg/dL (7-18); BUN/Creat Ratio 13.2 RATIO (10-20); Chloride 109 mmol/L (98-107); Creatinine, Serum 0.91 mg/dL (0.70-1.30); EST Glomerular Filtration Rate 86 mL/min (>60); Est Glom Filt Rate - Afr Amer 104 mL/min (>60); Glucose 93 mg/dL (74-106); Potassium 3.8 mmol/L (3.5-5.1); Sodium Level 140 mmol/L (136-145)
== END | disposition home or self-care (01) ==
LOC: LAB 09:53
PROVIDERS: PCP Family Medicine; Referring Provider Nurse Practitioner Gerontology; Visit Provider Nurse Practitioner Gerontology
DX: I48.0 Paroxysmal atrial fibrillation (principal)
CPT/HCPCS: 36415; 80048; 85610

== ENCOUNTER 2022-05-18 10:25 | Day surgery (SDC) | payer MEDICARE, SELFPAY ==
[2022-05-17 07:30] VITALS: BMI 21.9
--- NOTE | 2022-05-17 18:37 | HP.PCM_ITS ---
History and Physical Date of Admission: 05/18/22 [facility] [address] [place], [place] [address] OFFICE VISIT Date of Service:? 04/20/22 MR#: [id number] Acct: [id number] Name:BRYON RICHARD Rep #: [id number] : 1950 ? Provider: ?ELPIDIO Tolbert Age/Sex:? 72/M ?[place] [facility] [place]: Signed HPI HPI History of Present Illness Surgical H&P: Yes Details: This is a 72-year-old male who presents to the office today for an outpatient cardiovascular follow-up. He has a history of underlying CAD, nonischemic mediated cardiomyopathy, chronic systolic CHF, paroxysmal atrial fibrillation, m itral valve regurgitation, hyperlipidemia, hypertension, superimposed upon a history of alcohol abuse and tobacco abuse. As you recall he has undergone previous noninvasive and invasive studies locally at [facility].? He has also had previous studies performed at [facility] in [place], [place] in September 2020.? Those studies are noted below. From a cardiac standpoint, the patient is doing well. He denies any palpitations. He does have an occasional chest pain-right chest when he wakes up in the morning. He states he does occasionally take a nitroglycerin and this relieves the pain. He denies SOB, Orthopnea, and PND. He does not have bleeding issues; no blood in urine, stool or nosebleeds. He has noticed a decrease in his energy level-he is attributing this to his age. He denies myalgias, or claudication.? He does not have edema, or sudden weight gain. He denies dizziness, lightheadedness, syncopal or near syncopal episodes, and headaches. He does smoke 1/2 pack a day, and drinks about 2-4 beers a day. He states that he recently went on vacation, and came home and he believes he missed at least 2 doses of his Xarelto the week of April 12. Intake Vital Signs ? 02/12/2208:28 03/09/2209:05 04/20/2208:53 04/20/2208:53 Height 6 ft 2 in 6 ft 2 in 6 ft 2 in 6 ft 2 in Weight: ? 176 lb 171 lb ? BMI ? ? 21.9 ? BP ? ? 146/93 H 144/92 H Blood Pressure Location ? ? Lt brachial Lt brachial Position ? ? Sitting Sitting Respiration ? ? 18 ? Pulse ? ? 70 70 Pulse Source ? ? Monitor ? Pulse Oximetry (%) ? ? 97 ? 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: No Is patient in pain?: No Allergies No Known Allergies Allergy (Verified 04/20/22 09:13) Medications duloxetine 60 mg capsule,delayed release 60 mg PO DAILY PTSD 02/14/19 [History Confirmed 04/20/22] boxerxmn-mui-ipiid acid 300 mcg-lycopene 600 mcg-lutein 300 mcg tablet 1 ea PO DAILY supplement 07/18/19 [History Confirmed 04/20/22] aspirin 81 mg tablet,delayed release (Adult Aspirin Regimen) 81 mg PO DAILY 12/01/20 [History Confirmed 04/20/22] atorvastatin 40 mg tablet 40 mg PO QHS #90 tabs 12/01/20 [Rx Confirmed 04/20/22] tamsulosin 0.4 mg capsule 0.4 mg PO 1800 prostate 12/01/20 [History Confirmed 04/20/22] lisinopril 10 mg tablet 10 mg PO DAILY #90 tabs 06/04/21 [Rx Confirmed 04/20/22] rivaroxaban 20 mg tablet 20 mg PO DAILY blood thinner #90 tabs 08/05/21 [Rx Confirmed 04/20/22] zinc gluconate 50 mg tablet 50 mg PO DAILY 11/13/21 [History Confirmed 04/20/22] nitroglycerin 0.4 mg sublingual tablet 0.4 mg sublingual Q5M PRN chest pain #25 tabs 02/11/22 [Rx Confirmed 04/20/22] carvedilol 6.25 mg tablet 6.25 mg PO BID #60 tabs 04/20/22 [Rx Confirmed 04/20/22] PFSH Medical History Atrial fibrillation Cardiomyopathy Cerebrovascular accident (CVA) Chest pain 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 History of bilateral inguinal hernia repair History of left heart catheterization (LHC) (~03/09/22) History of lumbar laminectomy History of right and left heart catheterization (03/14/19) Family History? Mother CVA (cerebral vascular accident) Hypertension Social History? household members:? spouse pets and animals:? Yes pets and animals: cat(s) and dog(s) Smoking Status:? Current every day smoker tobacco type: cigars Tobacco: How many years used:? 50 second hand exposure:? Yes alcohol intake:? current alcohol intake frequency: a few times a week substance use type:? does not use ROS Const Const: Positive for fatigue; Negative for weakness, fever(s), headache(s), chills, frequent falls, weight gain or weight loss Eyes Eyes: Negative for blind spots, loss of peripheral vision, transient loss of vision, blurry vision, change in vision, double vision, floaters or tunnel vision ENT ENT: Negative for headache(s), dizziness, Nosebleed/epistaxis, balance problems or neck pain Cardio Chest Pain: Yes Frequency: other (occasional) Character: dull Onset: other (when waking up in the morning) Location: right chest Duration: brief Relieving: other (nitroglycerin) Palpitations: No Edema: None Muscle aches with walking: None Resp Respiratory: Negative for SOB with activity, SOB at rest or SOB orthopnea\SOB lying down GI GI: Negative nausea, vomiting, heartburn, bloating, vomiting blood/hematemesis, bright, red blood in stools or black,tarry stools Musc Musc: Negative for muscle aches/ myalgia, muscle weakness, joint pain or balance problems Neuro Neuro: Negative for dizziness, lightheadedness, near syncope, syncope, orthost atic symptoms, frequent falls, headache(s), weakness, blurry vision or double vision Mickey Hematologic/Lymphatic: Negative for easy bleeding or easy bruising Endo Endo: Positive for fatigue Cardiology Exam Const Appearance: cooperative and no acute distress Orientation: alert and oriented x3 Head Head: normal to inspection Ears: hearing grossly normal bilaterally Nose: external nose normal Face and Sinus: face symmetric Eyes General: appearance normal, both eyes and all related structures Eyelids: eyelids normal Conjunctivae: conjunctivae normal Pupils: PERRL and pupil size EOM: EOM intact bilaterally Neck Neck: normal visual inspection Carotids: Negative bruit Chest Chest inspection: normal inspection of the chest and normal respiratory effort Auscultation: Bilateral: Clear to Auscultation Cardio Palpation: normal PMI Rate: regular rate Rhythm: irregularly irregular Heart sounds: S1 normal and S2 normal; Negative rub, gallop or murmur GI GI: normal to inspection and soft; Negative no hepatosplenomegaly Neuro General: patient alert, patient oriented x3 and CN's II-XI intact bilaterally Skin Skin: no rashes or lesions noted Extremities Pulses: Normal: Right Posterior Tibial Pulse, Left Posterior Tibial Pulse, Right Radial Pulse and Left Radial Pulse Lower Extremity Edema: None: Bilateral Psych Psychological: normal affect Supplemental Info Supplemental Information Cardiac Catheterization 03/09/2022: PROCEDURE(S) PERFORMED [id number])[facility]? CLINICAL PROFILE AND INDICATIONS Indications: ? ? Suspected CAD, Cardiomyopathy Heart Failure: ? ? None Stress/Imaging ? ? Date: 12/09/2021tress Test with SPECT MPI: Negative Angina Classification ? ? Anginal Classification w/in 2 Weeks: Anginal Equivalent Dyspnea CAD Presentations: ? ? Other: worsening chest pain / shortness of breath CONCLUSIONS Normal Left Ventricular End Diastolic Pressure [facility] Multivessel CAD (non obstructive) RECOMMENDATIONS Risk factor modification Medical therapy DESCRIPTION OF? PROCEDURE The patient arrived to the procedure lab. The risks and benefits of the procedure as well as a full description of our services here and current unavailability of surgical backup were fully explained to the patient and/or their significant other prior to the catheterization. The Timeout was completed, verifying the correct patient and procedure. The patient's procedural site was prepped and draped in the usual fashion. Local anesthetic was given subcutaneously to right radial region with Lidocaine 2%. Using a modified Seldinger technique, arterial access was obtained via the right radial artery, a 6Fr sheath was inserted.? Left Coronary Artery selective angiography was performed in multiple views using a 5 Fr. 4.0 Penhook catheter. Right Coronary Artery selective angiography was then performed in multiple views using a 5 Fr. 4.0 Penhook catheter. LV to AO pullback pressures were then recorded.The arterial sheath was pulled and a TR Band was applied for hemostasis. 12cc of air CORONARY ANGIOGRAPHY DOMINANCE:? Right Dominant LEFT HEART ASSESSMENT Left Ventricular Ejection Fraction: Not assessed Normal Left Ventricular End Diastolic Pressure LVEDP: 11 mmHg LEFT MAIN: Angiographically normal LEFT ANTERIOR DESCENDING ARTERY: Mild luminal irregularities DIAGONAL 2: Proximal - Mild luminal irregularities CIRCUMFLEX ARTERY: MID CIRC: Mild luminal irregularities RIGHT CORONARY ARTERY: Angiographically normal Echocardiogram 12/09/2021: Interpretation Summary The study was technically difficult. ? Left ventricular systolic function is lower limits of normal. The estimated ejection fraction is 50 %. The left atrium is mildly enlarged. The right atrium is mildly enlarged. Anterior leaflet diffuse mitral valve thickening. Mild (1+) mitral valve insufficiency. Mild tricuspid valve insufficiency. Calcified aortic root. Right ventricular systolic pressure estimated to be 29 mmHg. Unable to assess diastolic dysfunction. ? Stress Test 12/09/2021: Procedure: Exercise tolerance test/imaging study Indications: Chest pain; CAD; cardiomyopathy; mitral valve regurgitation; paroxysmal atrial fibrillation Consent: Per the patient Procedure: The patient exercised on a Abraham protocol for 6 minutes and 30 seconds completing Stage II and 30 seconds of Stage III achieving a peak heart rate of 173 bpm (117% predicted maximal heart rate) with a peak blood pressure 154/72 mmHg and a peak MET capacity of 8 METs. The baseline ECG demonstrated atrial fibrillation.? The peak exercise ECG demonstrated continued atrial fibrillation with no obvious ECG changes. There was occasional PVCs pretest, during exercise, and recovery. The functional capacity was considered. There was chest discomfort pretest, during exercise, and recovery without significant change. The examination was discontinued secondary to dyspnea. Impression: 1.? Technically adequate (percent predicted maximal heart rate greater than 85%) exercise tolerance test 2.? Peak exercise ECG with continued atrial fibrillation with no obvious ECG changes 3.? There were occasional PVCs pretest, during exercise, and recovery 4.? Nuclear images pending Myocardial perfusion imaging study: Technique: The patient was injected with 11.8 mCi of technetium 99m Cardiolite and subsequently rest SPECT Cardiolite nuclear imaging was obtained in the horizontal long, vertical long, and short axis views. The patient exercised on a Abraham protocol for 6 minutes and 30 seconds completing Stage II and 30 seconds of Stage III achieving a peak heart rate of 173 bpm (117% predicted maximal heart rate) with a peak blood pressure 154/72 mmHg and a peak MET capacity of 8 METs. The patient was injected with 32.4 mCi of technetium 99m Cardiolite and subsequently stress SPECT Cardiolite nuclear imaging was obtained in the horizontal long, vertical long, and short axis views.? A gated Cardiolite study at peak stress was obtained. Interpretation: Rest and stress SPECT Cardiolite nuclear imaging status post realignment, normalization, and attenuation correction, demonstrates the appearance of relative uniform tracer uptake and myocardial perfusion appearing within normal limits.? There is end systolic thickening and brightening.? The gated Cardiolite study demonstrates myocardial thickening and inward wall motion.? The reported LVEF is 42%. Impression: 1.? Rest and stress SPECT Cardiolite nuclear imaging demonstrate relative uniform tracer uptake and myocardial perfusion appearing within normal limits. 2.? The gated Cardiolite study reports an LVEF of 42%. Transthoracic echocardiogram from 07/24/2019: Interpretation Summary Mildly dilated left ventricle. The estimated ejection fraction is 40-45 %. Stage 2 diastolic dysfunction. There is mild to moderate global hypokinesis of the left ventricle. Moderately dilated right ventricle. The left atrium is severely enlarged. The right atrium is severely enlarged. Trivial mitral valve insufficiency. Trivial tricuspid valve insufficiency. Right ventricular systolic pressure estimated to be 32 mmHg. Bubble contrast study negative for right to left interatrial shunt. The study was technically difficult. Contrast injection was performed. There is no comparison study available. Echocardiogram from 10/02/2020? Left ventricular ejection fraction 50-55% and moderately dilated left atrium.? N o significant valvular abnormality was noted. Heart catheterization from 03/14/2019: CORONARY ANGIOGRAPHY DOMINANCE:? Right Dominant LEFT HEART ASSESSMENT Left Ventricular Ejection Fraction: by LV Gram 10 % Global Hypokinesis - Severe LVEDP: 22 mmHg Depressed Left Ventricular systolic function RIGHT HEART ASSESSMENT Thermal CO: 5.34? Thermal CI: 2.47 Asim CO: 3.69? Asim CI: 1.71 PW: /22? 16 PA: 44/15? 25 RV: 40/-7? -1 RA: /1? 0 PVR: 135? Right Heart pressures - elevated Pulmonary Hypertension Moderate LEFT MAIN: Angiographically normal LEFT ANTERIOR DESCENDING ARTERY: Angiographically normal CIRCUMFLEX ARTERY: Angiographically normal RIGHT CORONARY ARTERY: Angiographically normal Heart catheterization 10/02/2020?([facility], [place], [place]) Three-vessel moderate nonocclusive coronary artery disease with left main is normal, LAD with 50% disease, diagonal with moderate disease, circumflex is a nondominant vessel with obtuse marginal branch with 50-60% stenosis, dominant RCA with distal 50% stenosis and PDA with mid vessel 40% stenosis. LV with regional wall motion abnormalities (anterior apical hypokinesis) with an LVEF of 40-45% Labs: ?? ? LDL Cholesterol 42 mg/dL (0-130) ?? ? HDL Cholesterol 60 mg/dL (40-) ?? ? Triglycerides 61 mg/dL (-199) ?? ? VLDL Cholesterol 12 mg/dL (5-40) Diagnostics: ?? ? Electrocardiogram ? Echocardiogram ? Stress Test NM ? Stress Test ? Cardiac Catheterization ? Chest X-Ray ? Pulmonary: ?? ? No Data to Display Assessment and Plan Assessment and Plan (1) Atherosclerosis of platinum coronary artery of platinum heart without angina pectoris: ?Status:?Acute ?Plan: Patient has a history of coronary artery disease. His most recent cardiac catheterization from 03/09/2022 demonstrated nonobstructive multivessel coronary artery disease. He does have an occasional chest pain-right chest when he wakes up in the morning. I do not believe this is cardiac related. At this time, he will continue with his current medical therapy, along with aggressive risk factor and lifestyle modifications. (2) Cardiomyopathy: ?Status:?Chronic ?Qualifiers: ?Cardiomyopathy type:?dilated? Qualified Code(s):?I42.0 - Dilated cardiomyopathy ?Comment: Ef decreased from 47% in 2004 to 20-25% per echo 01/16/2019. Small focal anterior and inferior apical scar on stress test done 07/03/2004 @ [facility] ?Plan: Patient has a history of cardiomyopathy. His most recent echocardiogram from 11/2021 demonstrated an ejection fraction of 50%. He will continue with his current medical therapy, along with monitoring for any concerning symptoms. (3) Systolic congestive heart failure: ?Status:?Chronic ?Qualifiers: ?Heart failure chronicity:?chronic? Qualified Code(s):?I50.22 - Chronic systolic (congestive) heart failure ?Plan: Patient has a history of systolic congestive heart failure. He appears stable at this time, and denies any recent symptoms or events. He will continue with his current medical therapy, along with monitoring for any concerning symptoms. (4) Paroxysmal atrial fibrillation: ?Status:?Acute ?Plan: Patient has a history of paroxysmal atrial fibrillation. His EKG from today demo nstrates atrial fibrillation, Old anteroseptal infarct, heart rate 82. Cardioversion was discussed with patient, he will proceed with cardioversion on May [address] Zacarias. Instructions given to patient.? He was instructed to not miss any doses of his rivaroxaban. At this time, he will continue rivaroxaban and carvedilol. (5) Nonrheumatic mitral (valve) insufficiency: ?Status:?Chronic ?Comment: Mild per echo 01/16/2019 ?Plan: Patient has a history of nonrheumatic mitral valve insufficiency. His most recent echocardiogram from 11/2021 demonstrated mild (1+) mitral valve insufficiency. We will continue to monitor this with history, exam, and echocardiograms as deemed appropriate. (6) Hyperlipidemia: ?Status:?Chronic ?Qualifiers: ?Hyperlipidemia type:?unspecified? Qualified Code(s):?E78.5 - Hyperlipidemia, unspecified ?Plan: Patient has a history of hyperlipidemia. His most recent lipid panel from 12/02/2021: cholesterol 114, HDL 60, LDL 42, triglycerides 61. He will continue atorvastatin 40mg daily, along with aggressive risk factor and lifestyle modifications. (7) Essential hypertension: ?Status:?Acute ?Plan: Patient has a history of hypertension. His blood pressure is elevated in the office today. He will be asked to increase his carvedilol to 6.25mg twice daily, and continue lisinopril 10mg daily, along with monitoring his blood pressures at home. He will notify our office of updated blood pressure readings in 2-3 weeks. ? ? ? Orders: Orders 12 Lead EKG performed by [facility] Today I48.0 - Paroxysmal atrial fibrillation ? Basic Metabolic Profile (BMP) Today I48.0 - Paroxysmal atrial fibrillation ? Prothrombin Time w/INR Today I48.0 - Paroxysmal atrial fibrillation ? Cardioversion 05/18/22 I48.0 - Paroxysmal atrial fibri llation ? Medications: Changed From carvedilol ?? must administer with a meal/food 3.125 mg? PO BID 60 tabs 12RF ? ? To carvedilol ?? must administer with a meal/food 6.25 mg? PO BID 60 tabs 12RF ? ? Plan Details Additional Comments: Patient will follow up in 3 months, or sooner if needed. Thank you for allowing me to participate in the care of your patient. Please don't hesitate to call if any issues arise. This note was generated using a voice recognition system and there may be incorrect words, spelling, or punctuation that were not noted when reviewing the office note prior to saving. Portions of this documentation were copied and pasted from previous office visit notes to provide a cohesive continuity of the history. The note has been reviewed, edited, and updated, as necessary. Follow Up: ? ? for EKG (1 week post Cardioversion EKG) ? ? 3 Months (SHIP MANAGER/PA) COVID (Procedure Consent) Procedure Criteria Procedure Criteria: Yes Elective The surgeon/proceduralist and patient have discussed in detail the risk of exposure to and/or potential harm posed by the COVID-19 virus with having a surgery/procedure at this time versus the risk of? delaying the surgery/procedure. It is not possible to know either the risk of delaying the surgery or procedure or chance of getting an infection with perfect accuracy, but a joint decision was made between the patient and the surgeon/proceduralist ?to proceed at this time with the scheduled surgery/procedure as indicated on the consent form. Coding Level of Care Code Off vis,est,level 4 Diagnoses Atherosclerosis of platinum coronary artery of platinum heart without angina pectoris? I25.10 Cardiomyopathy? I42.0 ? ? ? Cardiomyopathy type: dilated Systolic congestive heart failure? I50.22 ? ? ? Heart failure chronicity: chronic Paroxysmal atrial fibrillation? I48.0 Nonrheumatic mitral (valve) insufficiency? I34.0 Hyperlipidemia? E78.5 ? ? ? Hyperlipidemia type: unspecified Essential hypertension? I10 Coding Level of Care Code Off vis,est,level 4 Diagnoses Atherosclerosis of platinum coronary artery of platinum heart without angina pectoris? I25.10 Cardiomyopathy? I42.0 ? ? ? Cardiomyopathy type: dilated Systolic congestive heart failure? I50.22 ? ? ? Heart failure chronicity: chronic Paroxysmal atrial fibrillation? I48.0 Nonrheumatic mitral (valve) insufficiency? I34.0 Hyperlipidemia? E78.5 ? ? ? Hyperlipidemia type: unspecified Essential hypertension? I10 04/20/22 1038 <Electronically signed by Teri Tolbert SHIP MANAGER SHIP MANAGER-C> Date Teri Tolbert SHIP MANAGER SHIP MANAGER-C 04/20/22 1811<Electronically signed by Bryon Zacarias MD> Cosigner Signature: Date (if applicable) Bryon Zacarias MD CC:? Dr. Reymundo Zavala MD ~ Assessment & Plan Addt'l Comments I have re-examined the patient. There are no clinical changes since date of exam
--- NOTE | 2022-05-18 12:24 | PRO.PCM_ITS ---
Procedure Report Date of Procedure: 05/18/22 CONSCIOUS SEDATION REPORT DATE OF SERVICE: May 18, 2022 BRIEF HISTORY OF PRESENT ILLNESS: The patient is a 72-year-old male who presented to [facility] for an elective outpatient cardioversion due to underlying atrial fibrillation. The patient is currently anticoagulated on Xarelto. His last surface echocardiogram demonstrated an ejection fraction of approximately 50%. He denied any prior anesthetic complications. He does have a longstanding history of chronic tobacco dependency and continues to smoke 0.5 packs of cigarettes per day. PHYSICAL EXAMINATION: VITAL SIGNS: Reviewed and were acceptable. GENERAL: The patient is a male, in no apparent distress, speaking in full sentences. HEENT: Normocephalic, atraumatic. Mucous membranes are moist and pink. Good mouth opening noted. Trachea is midline. MPII CHEST: S1, S2 irregularly irregular. No murmurs, rubs or gallops were noted. LUNGS: Increased AP diameter. Diminished air movement bilaterally without appreciable wheezes, rales or rhonchi. ABDOMEN: Soft, nontender, nondistended. Positive bowel sounds. EXTREMITIES: There is no clubbing, cyanosis or edema. ASA Class: II DESCRIPTION OF PROCEDURE: After confirmation of informed consent, the patient's anesthesia plan was reviewed in detail. Propofol was chosen. Risks and benefits were reviewed and the patient agreed to proceed. At 1208, the patient was given his first bolus of propofol. In total, the patient required 100 mg of propofol to achieve an appropriate level of sedation, after which time, he was given a 200 joule synchronized cardioversion by Dr. Zacarias at the bedside. This was successful in achieving normal sinus rhythm. The patient was monitored until 1222, at which time he reached his baseline mental status and function. The patient tolerated the procedure well. COMPLICATIONS: None ESTIMATED BLOOD LOSS: None RECOMMENDATIONS: Okay to recover in usual fashion. Procedures Pulmonary 9xxxx: [id number] Con Sedation
--- NOTE | 2022-05-18 12:32 | CARDIOVERS_ITS ---
Cardioversion Cardioversion: Date: 05-18-2022 Procedure: Synchronized Biphasic DC Cardioversion Indications: Atrial fibrillation Consent: Per the Patient Anesthesia: per Dr. Jeff of pulmonology and critical care medicine with propofol 100 mg IV push total Procedure: Synchronized Biphasic DC Cardioversion: 200 J x 1: Result: Sinus rhythm; PACs; PVCs Complications: no apparent complications This note was generated with [employer] software. It may contain incorrect words, spelling, and punctuation that were not noted in checking the note before signing.
== END 2022-05-18 13:15 | disposition home or self-care (01) ==
LOC: CLSP 10:28
PROVIDERS: PCP Family Medicine; Referring Provider Internal Medicine Cardiovascular Disease; Visit Provider Internal Medicine Cardiovascular Disease
DX: I48.0 Paroxysmal atrial fibrillation (principal); I11.0 Hypertensive heart disease with heart failure; I42.9 Cardiomyopathy, unspecified; I50.22 Chronic systolic (congestive) heart failure; E78.5 Hyperlipidemia, unspecified; F17.290 Nicotine dependence, other tobacco product, uncomplicated; Z86.73 Personal history of transient ischemic attack (TIA), and cerebral infarction without residual deficits; Z79.82 Long term (current) use of aspirin; Z79.899 Other long term (current) drug therapy; Z79.01 Long term (current) use of anticoagulants
CPT/HCPCS: 92960; 93005; J7040

== ENCOUNTER 2022-08-05 04:56 | Emergency (ER) | payer OTHER, SELFPAY ==
[2022-08-05 04:57] VITALS: BP 134/92; PULSE 96; RESP 18; TEMP 35.7; O2SAT 95; BMI 22.6
--- NOTE | 2022-08-05 05:38 | EDS_ITS ---
HPI History of Present Illness Chief Complaint: Nosebleed Narrative Narrative: 72-year-old male with nosebleed from the right nare. Patient states this started about 1145. He denies any trauma. Patient is on Xarelto because a history of A. fib. Patient states he is unable to get the bleeding controlled. He does have some blood going to the back of his throat. He states he is had this in the past. He had his nose packed by his primary care physician and was sent to ENT for follow-up. He states that he had to have it cauterized. He believes it was Dr. Navarro. [facility] Medical History Atrial fibrillation Cardiomyopathy Cerebrovascular accident (CVA) Chest pain 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 Dyspnea on exertion Edema Essential hypertension Fatigue History of cardioversion (06/27/19) Hyperlipidemia Nonischemic cardiomyopathy Nonrheumatic mitral (valve) insufficiency Orthopnea Osteoarthritis Paroxysmal atrial fibrillation Pleural effusion, right Pre-operative cardiovascular examination, left ventricular ejection fraction < 35% PTSD (post-traumatic stress disorder) Shortness of breath Strain of left rotator cuff capsule Systolic congestive heart failure Tobacco use Home Medications duloxetine 60 mg capsule,delayed release 60 mg PO DAILY PTSD 02/14/19 [History Last Taken 03/14/19] nfknivde-zmi-qachd acid 300 mcg-lycopene 600 mcg-lutein 300 mcg tablet 1 ea PO DAILY supplement 07/18/19 [History Last Taken Unknown] aspirin 81 mg tablet,delayed release (Adult Aspirin Regimen) 81 mg PO DAILY 12/01/20 [History Last Taken 05/18/22] atorvastatin 40 mg tablet 40 mg PO QHS #90 tabs 12/01/20 [Rx Last Taken Unknown] tamsulosin 0.4 mg capsule 0.4 mg PO 1800 prostate 12/01/20 [History Last Taken Unknown] lisinopril 10 mg tablet 10 mg PO DAILY #90 tabs 06/04/21 [Rx Last Taken 05/18/22] rivaroxaban 20 mg tablet 20 mg PO DAILY blood thinner #90 tabs 08/05/21 [Rx Last Taken Unknown] zinc gluconate 50 mg tablet 50 mg PO DAILY 11/13/21 [History Last Taken Unknown] nitroglycerin 0.4 mg sublingual tablet 0.4 mg sublingual Q5M PRN chest pain #25 tabs 02/11/22 [Rx Last Taken Unknown] carvedilol 6.25 mg tablet 6.25 mg PO BID #60 tabs 04/20/22 [Rx Last Taken 05/18/22] Allergy/AdvReac Type Severity Reaction Status Date / Time No Known Allergies Allergy Verified 04/20/22 09:13 Family History Mother CVA (cerebral vascular accident) Hypertension Surgical History History of bilateral inguinal hernia repair History of left heart catheterization (LHC) (~03/09/22) History of lumbar laminectomy History of right and left heart catheterization (03/14/19) Social History household members: spouse pets and animals: Yes pets and animals: cat(s) and dog(s) Smoking Status: Current every day smoker tobacco type: cigars Tobacco: How many years used: 50 second hand exposure: Yes alcohol intake: current alcohol intake frequency: a few times a week substance use type: does not use ROS ROS ED Review of Systems ROS Unobtainable: Denies due to encephalopathy Constitutional Constitutional ED: Denies chills or fever(s) Eyes Eyes: Denies blurry vision or change in vision ENT ENT ED: Reports other Details: Epistaxis ; Denies ear pain Cardiovascular Cardiovascular: Denies chest pain or palpitations Respiratory/Chest Respiratory/Chest: Denies cough or dyspnea Gastrointestinal Gastrointestinal: Denies abdominal pain or constipation Genitourinary Genitourinary ED: Denies dysuria or hematuria Musculoskeletal Musculoskeletal: Denies arthralgias or back pain Integumentary Denies abscess or Abrasions Neurologic Neurologic: Denies headache(s) or paresthesias EXAM Physical Exam Const Vital Signs: 08/05/22 04:57 Temperature 96.2 F L Temperature Source Temporal Pulse Rate 96 Respiratory Rate 18 Blood Pressure 134/92 H Blood Pressure Mean 106 Pulse Ox 95 Oxygen Delivery Method Room Air Positive well nourished General Appearance ED: Negative for pallor HEENT Reports normocephalic and moist mucous membranes Nose: external nose normal and epistaxis right Throat: other Other Details: Blood in posterior oropharynx. Eyes PERRL Neck no lymphadenopathy and supple Chest Wall inspection of chest normal Resp normal respiratory effort and clear to auscultation bilaterally Cardio regular rate and regular rhythm GI normal to inspection, nondistended, normoactive bowel sounds Extremity normal to inspection Neuro oriented x3 and CN's II-XII intact bilaterally Sensorium / Orientation: alert Motor Exam: strength 5/5 throughout Psych mental status grossly normal Skin no rashes or lesions noted and no wounds General Skin Exam: Negative for jaundice or pallor MDM MDM MDM Narrative Medical decision making narrative: Patient has bleeding from the right nare. I had him blow his nose to see if I could visualize the bleed and it appears to be posterior. I cannot visualize the source but he did start bleeding fairly quickly after he blew his nose. Direct pressure was applied. I placed a 7.5 Rhino Rocket in the right nare with good control of the bleeding. Patient is on Xarelto and will need follow-up for this with ENT. He tolerated procedure well. I think he stable for discharge after monitoring for a while. Impression: 1. Epistaxis Lab Data Attestation: I reviewed the patient's lab results. Discharge Plan Triage Chief Complaint: Nosebleed ED Provider: Jimy Choi Dx/Rx/DC Orders Prescriptions: No Action duloxetine 60 mg capsule,delayed release(DR/EC) 60 mg PO DAILY tamsulosin 0.4 mg capsule 0.4 mg PO 1800 aspirin [Adult Aspirin Regimen] 81 mg tablet,delayed release (DR/EC) 81 mg PO DAILY Hold Instructions: NOSEBLEEDS atorvastatin 40 mg tablet 40 mg PO QHS Qty: 90 3RF lisinopril 10 mg tablet 10 mg PO DAILY Qty: 90 3RF zinc gluconate 50 mg tablet 50 mg PO DAILY nitroglycerin 0.4 mg tablet, sublingual 0.4 mg sublingual Q5M PRN (Reason: chest pain) Qty: 25 3RF Rx Instructions: do not exceed 3 doses per episode carvedilol 6.25 mg tablet 6.25 mg PO BID Qty: 60 12RF Rx Instructions: must administer with a meal/food [id number]-KP-lycopen-lutein 1 EACH tablet 1 ea PO DAILY rivaroxaban 20 mg tablet 20 mg PO DAILY Qty: 90 3RF Hold Instructions: NOSEBLEEDs Primary Care Provider: Reymundo Zavala Referrals: Reymundo Zavala MD [Primary Care Provider] -
[2022-08-05 06:20] VITALS: BP 101/73; PULSE 95; RESP 18; O2SAT 98
== END 2022-08-05 06:20 | disposition home or self-care (01) ==
PROVIDERS: Emergency Provider Student in an Organized Health Care Education/Training Program; PCP Family Medicine; Visit Provider Student in an Organized Health Care Education/Training Program
DX: R04.0 Epistaxis (principal); J44.9 Chronic obstructive pulmonary disease, unspecified; I11.0 Hypertensive heart disease with heart failure; I50.20 Unspecified systolic (congestive) heart failure; E78.5 Hyperlipidemia, unspecified
CPT/HCPCS: 30901; 99282

== ENCOUNTER 2022-08-17 08:06 | Emergency (ER) | payer MEDICARE, SELFPAY ==
[2022-08-17 08:08] VITALS: BP 115/96; PULSE 57; RESP 14; TEMP 36.2; O2SAT 96; BMI 22.4
--- NOTE | 2022-08-17 08:36 | EDS_ITS ---
HPI History of Present Illness Chief Complaint: Nosebleed Informant: patient Onset/Context/Timing Onset: Today Current Severity: Moderate Maximum Severity: Severe Narrative Narrative: Present secondary to epistaxis. He was seen in the ER 2 weeks ago with right- sided nasal bleeding. He had packing placed. He was seen by ENT and had the lesion cauterized. A few hours later he started bleeding again and went back to the office where it was cauterized a second time. This morning around 3:30 AM he started bleeding again. He states bleeding is critical from the right and severe from the left. Patient is on Xarelto as well as baby aspirin. He denies recent facial trauma or URI symptoms. PFSH PFSH Medical History Atrial fibrillation Cardiomyopathy Cerebrovascular accident (CVA) Chest pain 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 Dyspnea on exertion Edema Essential hypertension Fatigue History of cardioversion (06/27/19) Hyperlipidemia Nonischemic cardiomyopathy Nonrheumatic mitral (valve) insufficiency Orthopnea Osteoarthritis Paroxysmal atrial fibrillation Pleural effusion, right Pre-operative cardiovascular examination, left ventricular ejection fraction < 35% PTSD (post-traumatic stress disorder) Shortness of breath Strain of left rotator cuff capsule Systolic congestive heart failure Tobacco use Home Medications duloxetine 60 mg capsule,delayed release 60 mg PO DAILY PTSD 02/14/19 [History Last Taken 03/14/19] bqgucgxc-ypp-kbbtw acid 300 mcg-lycopene 600 mcg-lutein 300 mcg tablet 1 ea PO DAILY supplement 07/18/19 [History Last Taken Unknown] aspirin 81 mg tablet,delayed release (Adult Aspirin Regimen) 81 mg PO DAILY 12/01/20 [History Last Taken 05/18/22] atorvastatin 40 mg tablet 40 mg PO QHS #90 tabs 12/01/20 [Rx Last Taken Unknown] tamsulosin 0.4 mg capsule 0.4 mg PO 1800 prostate 12/01/20 [History Last Taken Unknown] lisinopril 10 mg tablet 10 mg PO DAILY #90 tabs 06/04/21 [Rx Last Taken 05/18/22] rivaroxaban 20 mg tablet 20 mg PO DAILY blood thinner #90 tabs 08/05/21 [Rx Last Taken Unknown] zinc gluconate 50 mg tablet 50 mg PO DAILY 11/13/21 [History Last Taken Unknown] nitroglycerin 0.4 mg sublingual tablet 0.4 mg sublingual Q5M PRN chest pain #25 tabs 02/11/22 [Rx Last Taken Unknown] carvedilol 6.25 mg tablet 6.25 mg PO BID #60 tabs 04/20/22 [Rx Last Taken 05/18/22] cephalexin 500 mg capsule 500 mg PO Q12 #10 caps 08/17/22 [Rx Last Taken Unknown] Allergy/AdvReac Type Severity Reaction Status Date / Time No Known Allergies Allergy Verified 08/17/22 08:09 Family History Mother CVA (cerebral vascular accident) Hypertension Surgical History History of bilateral inguinal hernia repair History of left heart catheterization (LHC) (~03/09/22) History of lumbar laminectomy History of right and left heart catheterization (03/14/19) Social History household members: spouse pets and animals: Yes pets and animals: cat(s) and dog(s) Smoking Status: Current every day smoker tobacco type: cigarettes and cigars Tobacco: How many years used: 50 second hand exposure: Yes alcohol intake: current alcohol intake frequency: a few times a week substance use type: does not use ROS ROS ED Constitutional Constitutional ED: Denies chills or fever(s) Eyes Eyes: Denies change in vision or discharge from eye(s) ENT ENT ED: Reports other Details: Epistaxis ; Denies discharge from eye(s), rhinorrhea or sore throat Cardiovascular Cardiovascular: Denies chest pain or palpitations Respiratory/Chest Respiratory/Chest: Denies cough or dyspnea Gastrointestinal Gastrointestinal: Denies abdominal pain, nausea or vomiting Genitourinary Genitourinary ED: Denies dysuria Musculoskeletal Musculoskeletal: Denies back pain or extremity pain Integumentary Denies Abrasions or rash Neurologic Neurologic: Denies headache(s) or weakness Psychiatric Psychiatric: Denies anxiety or depression Allergic/Immunologic Allergic/Immunologic ED: Denies lip swelling or urticaria EXAM Physical Exam Const Vital Signs: 08/17/22 08:08 08/17/22 09:25 Temperature 97.2 F L Temperature Source Temporal Pulse Rate 57 L 73 Respiratory Rate 14 18 Blood Pressure 115/96 H Blood Pressure Mean 102 Pulse Ox 96 97 Oxygen Delivery Method Room Air Positive well nourished and well developed General Appearance ED: well developed HEENT Reports normocephalic and head/scalp atraumatic HEENT Narrative: Nasal packing and nasal clamp in place with saturated gauze. Eyes PERRL and EOMs intact bilaterally Neck supple Chest Wall inspection of chest normal and palpation of chest normal Resp normal respiratory effort and clear to auscultation bilaterally Cardio regular rate and regular rhythm GI normal to inspection, nondistended, normoactive bowel sounds Palpation: soft Extremity normal to inspection Neuro oriented x3 and no sensory deficits noted Sensorium / Orientation: alert Motor Exam: strength 5/5 throughout Psych mental status grossly normal Skin no rashes or lesions noted MDM MDM MDM Narrative Medical decision making narrative: Cottonball soaked with Cetacaine and Afrin placed in the right nare. After a few moments this was removed. I attempted to place a 7.5 cm Rhino Rocket, however was unable to fully advance it. This was taken out and a 5.5 cm Rhino Rocket was placed and balloon inflated. Treatment and Re-Evaluation Narrative: Patient is standing at the door as I walk past short time later states that he feels better and is ready go home. I will write him a short course of Keflex to prevent sinus infection with packing currently in place. He is to follow-up with Dr. Navarro. Discharge Plan Triage Chief Complaint: Nosebleed ED Provider: Natasha Kim Dx/Rx/DC Orders Clinical Impression: Epistaxis Instructions: ED Epistaxis (Adult) Prescriptions: New cephalexin 500 mg capsule 500 mg PO Q12 Qty: 10 0RF No Action duloxetine 60 mg capsule,delayed release(DR/EC) 60 mg PO DAILY tamsulosin 0.4 mg capsule 0.4 mg PO 1800 aspirin [Adult Aspirin Regimen] 81 mg tablet,delayed release (DR/EC) 81 mg PO DAILY Hold Instructions: NOSEBLEEDS atorvastatin 40 mg tablet 40 mg PO QHS Qty: 90 3RF lisinopril 10 mg tablet 10 mg PO DAILY Qty: 90 3RF zinc gluconate 50 mg tablet 50 mg PO DAILY nitroglycerin 0.4 mg tablet, sublingual 0.4 mg sublingual Q5M PRN (Reason: chest pain) Qty: 25 3RF Rx Instructions: do not exceed 3 doses per episode carvedilol 6.25 mg tablet 6.25 mg PO BID Qty: 60 12RF Rx Instructions: must administer with a meal/food [id number]-LK-lycopen-lutein 1 EACH tablet 1 ea PO DAILY rivaroxaban 20 mg tablet 20 mg PO DAILY Qty: 90 3RF Hold Instructions: NOSEBLEEDs Primary Care Provider: Reymundo Zavala Referrals: Eric Navarro MD [Med Staff - Courtesy Staff] - 3-5 Days Reymundo Zavala MD [Primary Care Provider] - Disposition Disposition: Home, Self Care Discharge Date/Time: 08/17/22 09:25
[2022-08-17] MEDS: Oxymetazoline 0.05% 1 SPRAY SPRAY.BTL 2 SPRAY NASAL (08:54)
[2022-08-17] MEDS: Tetracaine/Benzocaine/Butamben 1 APPLIC TOPICAL (08:54)
[2022-08-17 09:25] VITALS: PULSE 73; RESP 18; O2SAT 97
== END 2022-08-17 09:25 | disposition home or self-care (01) ==
PROVIDERS: Emergency Provider Emergency Medicine; PCP Family Medicine; Visit Provider Emergency Medicine
DX: R04.0 Epistaxis (principal); J44.9 Chronic obstructive pulmonary disease, unspecified; I11.0 Hypertensive heart disease with heart failure; I50.20 Unspecified systolic (congestive) heart failure; I48.0 Paroxysmal atrial fibrillation; E78.5 Hyperlipidemia, unspecified; F17.210 Nicotine dependence, cigarettes, uncomplicated; Z79.01 Long term (current) use of anticoagulants; Z79.82 Long term (current) use of aspirin
CPT/HCPCS: 30901; 99282

== ENCOUNTER → 2023-04-25 | Outpatient (CLI) | payer MEDICARE, SELFPAY ==
[2023-04-25 09:49] LABS: Absolute Lymphocyte Count 1.11 X10^3/uL (0.83-4.51); Absolute Neutrophil Count 3.3 X10^3/uL (2.0-7.7); Basophil# 0.05 X10^3/uL; Basophil% 0.9 % (0-1); Eosinophil# 0.25 X10^3/uL; Eosinophils% 4.6 % (0-5); Hematocrit 39.7 % (40-54); Hemoglobin 14.2 g/dL (13.0-16.5); Lymphocyte # 1.11 X10^3/ul (0.83-4.51); Lymphocyte % 20.5 % (19-41); Mean Corp Hgb Conc 35.8 g/dL (32-36); Mean Corpuscular Hgb 34.9 pg (27.0-32.0); Mean Corpuscular Volume 97.5 fL (80-94); Mean Platelet Vol. 9.5 fl (6.2-12.0); Monocyte% 12.9 % (0-10); NRBC Flagged by Analyzer 0 % (0-5); Neutrophil % 60.9 % (47-70); Platelet Count 214 K/mm3 (150-450); RBC Distribution Width CV 12.4 % (11.6-14.6); RBC Distribution Width SD 44.5 fl (35.1-43.9); Red Blood Count 4.07 M/mm3 (4.6-6.2); White Blood Count 5.4 K/mm3 (4.4-11.0)
[2023-04-25 10:29] LABS: Anion Gap 4 (5-15); BUN 12 mg/dL (7-18); BUN/Creat Ratio 11.9 RATIO (10-20); Calcium,Total 8.8 mg/dL (8.5-10.1); Chloride 100 mmol/L (98-107); Creatinine, Serum 1.01 mg/dL (0.70-1.30); EST Glomerular Filtration Rate 77 mL/min (>60); Est Glom Filt Rate - Afr Amer 93 mL/min (>60); Glucose 119 mg/dL (74-106); Magnesium 2.4 mg/dL (1.6-2.6); Potassium 3.3 mmol/L (3.5-5.1); Sodium Level 139 mmol/L (136-145); Thyroid Stim Hormone (TSH) 1.66 uIU/mL (0.358-3.74)
[2023-04-25 10:38] LABS: AST(SGOT) 32 U/L (15-37); Alanine Aminotransfer ALT/SGPT 32 U/L (16-61); Albumin, Serum 3.4 g/dL (3.2-5.0); Alkaline Phosphatase 93 U/L (45-117); Bilirubin, Direct 0.15 mg/dL (0.00-0.30); Cholesterol 158 mg/dL (200); Globulin 4.5 g/dL (2.2-4.2); High Density Lipoprotein 80 mg/dL; Protein, Total 7.9 g/dL (6.4-8.2); Triglycerides 99 mg/dL; Very Low Density Lipoprotein 20 mg/dL (5-40)
== END | disposition home or self-care (01) ==
LOC: LAB 08:56
PROVIDERS: Nurse Practitioner Family; PCP Family Medicine; Referring Provider Nurse Practitioner Gerontology; Visit Provider Nurse Practitioner Gerontology
DX: E78.00 Pure hypercholesterolemia, unspecified (principal); R55 Syncope and collapse
CPT/HCPCS: 36415; 80048; 80061; 80076; 83735; 84443; 85025

== ENCOUNTER → 2023-04-27 | Outpatient (CLI) | payer MEDICARE, SELFPAY ==
--- NOTE | 2023-04-27 07:52 | CDU_ITS ---
Reason For Study: Syncope Rt. Velocities/BP Lt. Velocities/BP Prox CCA 61.7/10.7 cm/sec. Prox CCA 60/16.6 cm/sec. Mid CCA 49.4/16.3 cm/sec. Mid CCA 65.7/20.3 cm/sec. Dist CCA 52.2/18.2 cm/sec. Dist CCA 50.9/17.7 cm/sec. Prox ICA 43.7/13.5 cm/sec. Prox ICA 55.2/16.8 cm/sec. Mid ICA 48.5/15.4 cm/sec. Mid ICA 58.7/26.4 cm/sec. Dist ICA 68.3/28.6 cm/sec. Dist ICA 52.4/28.5 cm/sec. Rt. ICA/CCA = 1.31. Lt. ICA/CCA = 0.98. Prox ECA 70.2/18.2 cm/sec. Prox ECA 57/12.5 cm/sec. Rt. Vert. 34.4/11.6 cm/sec. Lt. Vert. 34.4/14.4 cm/sec. Right Extracranial There is homogeneous, smooth atherosclerotic plaque noted in the right common carotid artery. There is heterogeneous, irregular atherosclerotic plaque noted in the right internal carotid artery. There is homogeneous, smooth atherosclerotic plaque noted in the right external carotid artery. Antegrade flow is noted in the right vertebral artery. Left Extracranial There is homogeneous, smooth atherosclerotic plaque noted in the left common carotid artery. There is heterogeneous, irregular atherosclerotic plaque noted in the left internal carotid artery. There is heterogeneous, irregular atherosclerotic plaque noted in the left external carotid artery. Antegrade flow is noted in the left vertebral artery. Procedure Carotid Duplex [id number]. This is a Carotid Duplex examination using B-mode, color flow and specral Doppler. Exam performed in department. VL/Carotid Duplex Ultrasound Interpretation Summary Mild (<50%) stenosis right extracranial internal carotid. Mild (<50%) stenosis left extracranial internal carotid. Patent and antegrade vertebrals bilaterally. Ordering Physician: Teri Tolbert Referring Physician: Reymundo Zavala Performed By: Anastasia Lipscomb RVT
== END | disposition home or self-care (01) ==
PROVIDERS: PCP Family Medicine; Referring Provider Nurse Practitioner Gerontology; Visit Provider Nurse Practitioner Gerontology
DX: R55 Syncope and collapse (principal)
CPT/HCPCS: 93225; 93226; 93880

== ENCOUNTER → 2023-07-26 | Outpatient (CLI) | payer MEDICARE, SELFPAY ==
[2023-07-26 09:41] LABS: Absolute Lymphocyte Count 0.99 X10^3/uL (0.83-4.51); Absolute Neutrophil Count 3.8 X10^3/uL (2.0-7.7); Basophil# 0.05 X10^3/uL; Basophil% 0.9 % (0-1); Eosinophil# 0.26 X10^3/uL; Eosinophils% 4.5 % (0-5); Hematocrit 37.7 % (40-54); Hemoglobin 12.4 g/dL (13.0-16.5); Lymphocyte # 0.99 X10^3/ul (0.83-4.51); Mean Corp Hgb Conc 32.9 g/dL (32-36); Mean Corpuscular Hgb 33.4 pg (27.0-32.0); Mean Corpuscular Volume 101.6 fL (80-94); Mean Platelet Vol. 9.4 fl (6.2-12.0); Monocyte# 0.69 X10^3/uL; Monocyte% 11.8 % (0-10); NRBC Flagged by Analyzer 0 % (0-5); Neutrophil # 3.81 X10^3/uL (2.7-7.7); Neutrophil % 65.3 % (47-70); Platelet Count 229 K/mm3 (150-450); RBC Distribution Width CV 13.2 % (11.6-14.6); RBC Distribution Width SD 49.1 fl (35.1-43.9); Red Blood Count 3.71 M/mm3 (4.6-6.2); White Blood Count 5.8 K/mm3 (4.4-11.0)
[2023-07-26 10:20] LABS: Anion Gap 3 (5-15); BUN 12 mg/dL (7-18); BUN/Creat Ratio 11.8 RATIO (10-20); Calcium,Total 8.7 mg/dL (8.5-10.1); Chloride 107 mmol/L (98-107); Creatinine, Serum 1.02 mg/dL (0.70-1.30); EST Glomerular Filtration Rate 76 mL/min (>60); Est Glom Filt Rate - Afr Amer 92 mL/min (>60); Free T3 2.6 pg/mL (2.18-3.98); Glucose 123 mg/dL (74-106); Magnesium 2.2 mg/dL (1.6-2.6); Potassium 3.2 mmol/L (3.5-5.1); Sodium Level 143 mmol/L (136-145); T4 Free Direct 0.81 ng/dL (0.76-1.46); Thyroid Stim Hormone (TSH) 0.83 uIU/mL (0.358-3.74)
== END | disposition home or self-care (01) ==
PROVIDERS: PCP Family Medicine; Referring Provider Nurse Practitioner Gerontology; Visit Provider Nurse Practitioner Gerontology
DX: R42 Dizziness and giddiness (principal); E78.5 Hyperlipidemia, unspecified; E87.6 Hypokalemia
CPT/HCPCS: 36415; 80048; 83735; 84439; 84443; 84481; 85025

== ENCOUNTER → 2023-08-04 | Outpatient (CLI) | payer MEDICARE, SELFPAY ==
[2023-08-04 09:07] LABS: Anion Gap 3 (5-15); BUN 12 mg/dL (7-18); Calcium,Total 8.5 mg/dL (8.5-10.1); Chloride 106 mmol/L (98-107); Creatinine, Serum 1.09 mg/dL (0.70-1.30); EST Glomerular Filtration Rate 70 mL/min (>60); Est Glom Filt Rate - Afr Amer 85 mL/min (>60); Glucose 165 mg/dL (74-106); Potassium 3.2 mmol/L (3.5-5.1); Sodium Level 140 mmol/L (136-145)
== END | disposition home or self-care (01) ==
LOC: LAB 07:40
PROVIDERS: PCP Family Medicine; Referring Provider Nurse Practitioner Gerontology; Visit Provider Nurse Practitioner Gerontology
DX: E87.6 Hypokalemia (principal)
CPT/HCPCS: 36415; 80048

== ENCOUNTER → 2023-08-09 | Outpatient (CLI) | payer OTHER, SELFPAY ==
--- NOTE | 2023-08-09 06:35 | MRI_ITS ---
STUDY: MRI BRAIN WITH AND WITHOUT CONTRAST (ATTENTION INTERNAL AUDITORY CANALS - I.A.C.''s) REASON FOR EXAM: Male, 73 years old. ACOUSTIC NEUROMA TECHNIQUE: Standardized multiplanar fat and water weighted pulse sequences were obtained. IV 17ml Clariscan was administered for the contrast portion of the examination. COMPARISON: None. FINDINGS: Normal bilateral temporal bones. Normal bilateral internal auditory canals. There is no demonstrated intracanalicular or cisternal vestibular schwannoma (acoustic neuroma). There is no enhancement of the bilateral VIIth or VIIIth cranial nerves. Normal bilateral cochlea, vestibules and semicircular canals. Normal size of the ventricles and extra-axial spaces for the patient''s age. Multiple T2 FLAIR hyperintensity foci in the white matter of both cerebral hemispheres are chronic white matter ischemic changes. Normal bilateral basal ganglia. Normal thalami. Normal flow voids within the major intracranial circulation suggesting patency by spin echo criteria. Normal venous enhancement. There is no enhancing intra-axial or extra-axial abnormality. There is no extra-axial fluid accumulation. Normal sella turcica, pituitary gland, infundibular stalk, optic chiasm and hypothalamus. Normal tectal plate and pineal gland. Normal midbrain, narendra and medulla. Normal cerebellum. Normal basal cisterns. No demonstrated orbital abnormality, within the constraints of a routine brain study. Normal visualized paranasal sinuses. Hypoplastic left maxillary sinus. Normal calvarium and skull base. Normal visualized soft tissue structures. Normal visualized upper cervical spine. MRI/Brain W/WO Contrast IMPRESSION: 1. No MRI evidence of acoustic neuroma with and without contrast. 2. Multiple chronic white matter ischemic changes in both cerebral hemispheres. Electronically Signed: Ben Rojas MD at 8:28 EST ,
== END | disposition home or self-care (01) ==
PROVIDERS: PCP Family Medicine; Referring Provider Otolaryngology Otolaryngology/Facial Plastic Surgery; Visit Provider Otolaryngology Otolaryngology/Facial Plastic Surgery
DX: H93.3X9 Disorders of unspecified acoustic nerve (principal)
CPT/HCPCS: 70553; A9575

== ENCOUNTER → 2023-08-31 | Outpatient (CLI) | payer MEDICARE, SELFPAY ==
--- NOTE | 2023-08-31 09:34 | STRESSREP ---
Stress Test Report Date: 08/31/2023 Procedure: Pharmacologic stress nuclear imaging study Indications: Chest pain Consent: Per the patient Procedure: The patient underwent pharmacologic (Regadenoson 0.4mg ) evaluation with a peak heart rate of 99 beats per minute (68%predicted maximal heart rate) and a peak blood pressure of 130/82 mmHg. The baseline ECG demonstrated atrial fibrillation. The peak pharmacologic ECG demonstrated no ischemic changes. Baseline atrial fibrillation. There was no complaint of chest discomfort during pharmacologic infusion or recovery. The patient was injected with 11.8 millicuries of technetium 99m Cardiolite and subsequently rest SPECT Cardiolite nuclear imaging was obtained in the horizontal long, vertical long, and short axis views. The patient underwent pharmacologic (Regadenoson) evaluation. The patient was injected with 34.7 millicuries of technetium 99m Cardiolite and subsequently stress SPECT Cardiolite nuclear imaging was obtained in the horizontal long, vertical long, and short axis views. A gated Cardiolite study at peak stress was obtained. The examination was stopped secondary to completion of protocol. Rest and stress SPECT Cardiolite nuclear imaging status post realignment, normalization, and attenuation correction demonstrate no fixed or reversible perfusion defects. There is end systolic thickening and brightening. The gated Cardiolite study demonstrates myocardial thickening and inward wall motion. The reported LVEF is 53%. Impression: 1. Pharmacologic (Regadenoson) evaluation 2. Peak pharmacologic ECG with no ischemic changes. 3. Baseline atrial fibrillation. 5. Rest and stress SPECT Cardiolite nuclear imaging demonstrate relative uniform tracer uptake and myocardial perfusion appearing within normal limits. 6. The gated Cardiolite study reports an LVEF of 53%. This note was generated with [employer] software. It may contain incorrect words, spelling, and punctuation that were not noted in checking the note before signing.
== END | disposition home or self-care (01) ==
PROVIDERS: PCP Family Medicine; Referring Provider Nurse Practitioner Gerontology; Visit Provider Nurse Practitioner Gerontology
DX: R07.9 Chest pain, unspecified (principal)
CPT/HCPCS: 78452; 93017; A9500; A4216; J2785

== ENCOUNTER 2023-10-26 06:43 | Outpatient (CLI) | payer OTHER, SELFPAY ==
--- NOTE | 2023-10-26 06:45 | CT_ITS ---
STUDY: LOW DOSE CT LUNG CANCER SCREENING REASON FOR EXAM: Male, 73 years old. LUNG SCREEN. Current smoker. Patient smokes 1 pack per day for 57 years. RADIATION DOSAGE (If Supplied By Facility): CTDIvol = ( 3.02 ) mGy, DLP = ( 121.54 ) mGycm TECHNIQUE: No contrast was administered. Low dose technique was utilized (average mAS-38 and kVp 120). 1.25 mm axial source images with a slice interval of 1.25-mm were reconstructed in lung windows. 2.5 mm axial source images with a slice interval of 2.5-mm were reconstructed in lung windows. 5.0 mm axial source images with a slice interval of 5.0-mm were reconstructed in soft tissue windows. COMPARISON: Comparison is made with prior study dated February 22, 2020. NODULES: No abnormal nodular densities are visualized. Emphysema: Once again, there is a mild degree of hyperinflation and emphysematous changes. Scattered small bulla are seen more prominent in the right hemithorax. Stable minimal linear scarring at the lung bases. Endobronchial lesion: None Aorta: Atherosclerotic plaque formation of the aortic arch. CORONARY ARTERIES: Coronary artery calcification is seen. Heart: Unremarkable Pulmonary artery: Unremarkable Mediastinal nodes: Small benign-appearing mediastinal lymph nodes. Other chest and abdominal findings: CT/Low Dose CT Lung Screening IMPRESSION: Lung-RADS category 2 - Continue annual screening with LDCT in 12 months. IMPORTANT NOTES FOR USE: ACR Lung-RADS Version 1.1 Assessment Categories Release Date: 2018 Category: Coded 0-4 bases on nodule(s) with highest degree of suspicion. Negative screen is defined as categories 1 and 2; a positive screen is defined as categories 3 and 4. Category 3 and 4A nodules that are unchanged on interval CT should be coded as category 2, and individuals returned to screening in 12 months. Category 4X: Category 3 or 4 nodules with additional imaging findings that increase the suspicion of lung cancer, such as spiculation, GGN that doubles in size in 1 year, enlarged lymph notes, etc. Category Modifiers: S (significant finding unrelated to lung cancer) Electronically Signed: Ja Quezada MD at 9:17 EST ,
--- OUTSIDE RECORDS SUMMARY | 2023-10-26 06:52 | XMS RPT_ITS | CCD ---
Author Name Unknown Address [address] [facility] [address] [place] [address] Organization [facility] Care Team Providers Care Broke Handler Name Role Phone ANIBAL SULLIVAN MD Primary Care Physician Gina MA, Carmita Unavailable Unavailable ANIBAL SULLIVAN MD Primary Care Unavailable ANIBAL SULLIVAN MD Attending Unavailable ANIBAL SULLIVAN MD Attending Unavailable ANIBAL SULLIVAN MD Primary Care Unavailable ANIBAL SULLIVAN MD Attending Unavailable ANIBAL SULLIVAN MD Primary Care Unavailable Medications Current Medications Medication Drug Class(es) Dates Sig (Normalized) Sig (Original) aspirin 81 mg delayed release oral tablet (2 sources) Platelet Aggregation Inhibitor, Nonsteroidal Anti-inflammatory Drug Start: 10-08-2020 aspirin 81 mg oral delayed release tablet Dose : 81 mg = 1 tab(s), Oral, Daily, 0 Refill(s) Start Date: 10/08/20 Status: Ordered atorvastatin 40 mg oral tablet (2 sources) HMG-CoA Reductase Inhibitor Start: 10-08-2020 atorvastatin 40 mg oral tablet Dose : 40 mg = 1 tab(s), Oral, qDay, # 30 tab(s), 0 Refill(s) Start Date: 10/08/20 Status: Ordered DULoxetine 60 mg delayed release oral capsule (2 sources) Serotonin and Norepinephrine Reuptake Inhibitor Start: 04-04-2019 DULoxetine 60 mg oral delayed release capsule Dose : 60 mg = 1 cap(s), Oral, qAM, 0 Refill(s) Start Date: 04/04/19 Status: Ordered lisinopril 10 mg oral tablet (2 sources) Angiotensin Converting Enzyme Inhibitor Start: 10-08-2020 lisinopril 10 mg oral tablet Dose : 10 mg = 1 tab(s), Oral, qDay, # 30 tab(s), 0 Refill(s) Start Date: 10/08/20 Status: Ordered Multiple Vitamins oral tablet (2 sources) Start: 04-04-2019 take 1 tablet by mouth once daily Multiple Vitamins oral tablet Dose = 1 tab(s), Oral, Daily, # 30 tab(s), 0 Refill(s) Start Date: 04/04/19 Status: Ordered naltrexone hydrochloride 50 mg oral tablet (1 source) Opioid Antagonist Start: 12-29-2021 take 1 tablet by mouth in the morning naltrexone 50 mg oral tablet TAKE 1 TABLET BY MOUTH IN THE MORNING FOR ALCOHOL CRAVINGS Start Date: 12/29/21 Status: Ordered rivaroxaban 20 mg oral tablet (2 sources) Factor Xa Inhibitor Start: 07-18-2019 Xarelto 20 mg oral tablet Dose : 20 mg = 1 tab(s), Oral, with supper, # 90 tab(s), 0 Refill(s) Start Date: 07/18/19 Status: Ordered tamsulosin hydrochloride 0.4 mg oral capsule (2 sources) alpha-Adrenergic Isaac Start: 05-06-2022 tamsulosin 0.4 mg oral capsule Dose : 0.4 mg = 1 cap(s), Oral, qDay, # 30 cap(s), 0 Refill(s), Pharmacy: [id number], 182, cm, 12/29/21 7:46:00 EDT, Height Start Date: 05/06/22 Status: Ordered Completed/Discontinued Medications Medication Drug Class(es) Dates Sig (Normalized) Sig (Original) LORazepam 0.5 mg oral tablet (1 source) Benzodiazepine Start: 01-07-2021 End: 2021 LORazepam 0.5 mg oral tablet Dose : 0.5 mg = 1 tab(s), Oral, TID, PRN as needed for anxiety, # 90 tab(s), 0 Refill(s), Pharmacy: [id number], Anxiety, 183, cm, 01/07/21 12:46:00 EDT, Height, 86.6, kg, 01/07/21 12:46:00 EDT, Dosing Weight Start Date: 01/07/21 Stop Date: 02/06/21 Status: Ordered Problems Problem Classification Problem Date Documented Da te Episodic/Chronic Abdominal hernia (2 sources) Right inguinal hernia 04-05-2019 Episodic Alcohol-related disorders (2 sources) History of alcohol abuse 04-04-2019 Chronic Results Test Name Value Interpretation Reference Range Facil ity Encounters Encounter Date Encounter Type Care Provider Facility Start: 06-28-2022 End: 06-29-2022 ambulatory ANIBAL SULLIVAN MD Facility:B Start: 06-28-2022 End: 06-28-2022 Patient encounter procedure ANIBAL SULLIVAN MD [facility] Start: 12-25-2021 End: 12-26-2021 ambulatory ANIBAL SULLIVAN MD Facility:[facility] Start: 12-25-2021 End: 12-25-2021 Patient encounter procedure ANIBAL SULLIVAN MD [facility] Start: 06-30-2021 End: 07-01-2021 ambulatory ANIBAL SULLIVAN MD Facility:[facility] Procedures Date Procedure Procedure Detail Performing Clinician Start: 10-02-2020 Ecg routine ecg w/le ast 12 lds i&r only Start: 10-01-2020 Electrocardiogram Start: 09-26-1981 Laminectomy and discectomy ANIBAL SULLIVAN MD Immunizations Immunization Date Immunization Notes Care Provider [facility] 07-07-2021 influenza, high dose seasonal, preservative-free; Translations: [Fluad Quadrivalent PF ] ANIBAL SULLIVAN MD [facility] 02-24-2021 SARS-CoV-2 (COVID-19 ) mRNA-1273 vaccine ANIBAL SULLIVAN MD [facility] 01-27-2021 SARS-CoV-2 (COVID-19 ) mRNA-1273 vaccine ANIBAL SULLIVAN MD [facility] 10-04-2020 influenza virus vacc ine, unspecified formulation ANIBAL SULLIVAN MD [facility] 05-10-2011 pneumococcal polysaccharide vaccine, 23 valent ANIBAL SULLIVAN MD [facility] 05-10-2011 tetanus toxoid, redu cyndy diphtheria toxoid, and acellular pertussis vaccine, adsorbed ANIBAL SULLIVAN MD [facility] Payers Date Payer Category Payer Unknown [id number] 1950 Unknown [id number] 1950 Unknown [id number] 1950 Unknown [id number] Social History Date Type Detail Facility Start: 10-08-2020 Tobacco smoking status Ex-smoker (fi nding) [facility] Sex Assigned At Male [facility] Start: 12-29-2021 Tobacco smoking status Light t obacco smoker (finding) [facility] Medical Equipment Procedure Code Equipment Code Equipment Origin al Text Equipment Identifier Dates FDA Start: 04-09-2019 Inguinal Hernia Repair Unknown 04/09/19 Unknown Unknown FDA Start: 04-09-2019 Evaluation + Plan note Laboratory Note Date & Type Note Facility Evaluation + Plan note Future Appointments Appointment Date:12/29/2021 07:30:00 AM Scheduled Provider:ANIBAL SULLIVAN MD Location:[facility] Appointment Type:PC OV Future Scheduled TestsLipid Profile 07/09/21Complete Metabolic Panel 07/09/21 [facility] Evaluation + Plan note Laboratory Note Date & Type Note Facility Evaluation + Plan note Future Appointments Appointment Date:06/29/2022 07:30:00 AM Scheduled Provider:ANIBAL SULLIVAN MD Location:[facility] Appointment Type:PC OV Future Scheduled TestsLipid Profile 07/09/21Complete Metabolic Panel 07/09/21 [facility] Hospital course Narrative Note Date & Type Note Facility Hospital course Narrative No data available for this section [facility] Hospital Discharge instructions Note Date & Type Note Facility Hospital Discharge instructions No data available for this section [facility] Progress note Note Date & Type Note Facility Progress note No data available for this section [facility] Summary Purpose Family History No Family History Records FoundNo Family History Records Found Advance Directives No Advanced Directives Records FoundNo Advanced Directives Records Found Hospital Course Note [facility] Patient Name: JENY SANTOYO [id number] Date of : [address] [address] Unit Number: [id number] Discharge Summary Patient Status: ADM IN Attending Doctor: Rivas Valdez MD Service Date: 10/05/20 1120 Discharge Summary Admit Date Admission Date Time: 10/02/20 0853 Final Dx/Problem List 1. Dizziness Cardiology and neurology were following. Patient was found to have a cerebellar stroke on MRI patient seen by physical and Occupational Therapy recommending greater than 60 minutes /day. Patient now refusing placement. States he has been able to get up and walk down the [place] without difficulty using a walker. He wants to go home with home health care at this time. I discussed that he would get last therapy at home and this may delay or prevent him from improving and could lead to falls or injury. Patient states he is going to take this risk. senior benefits manager was able to follow. Plan for patient to go home with home health care. (more content not included)... Additional Source Comments (unrecognized sect ion and content) No Status Records FoundNo Status Records Found INFORMATION SOURCE (unrecogn ized section and content) DATE CREATED AUTHOR AUTHOR'S ORGANIZ ATION 06/29/2022 [facility] ([place]) Care Team (unrecognized sect ion and content) Personnel Name: ANIBAL SULLIVAN MD [facility] [address] [facility] [address] Name: Ricky Fuentes Clerevelyn Vizcarra PT Care Team (unrecognized sect ion and content) Care Team Personnel Name: Ricky Fuentes Clerevelyn Vizcarra PT Position: P3 Scheduling - Car Salesperson Advanced Member Role: Other Name: ANIBAL SULLIVAN MD Position: P4 Physician - Primary Care Med Service: Active Provider Member Role: Primary Care Physician Address: Address: [address] [place] [address] Care Team Related Persons Name: NE SANTOYO Address: Home [address] [place], [place] [id number] FOR RECORDS PERTAINING TO PATIENTS WHO ARE OR HAVE BEEN ENROLLED IN A CHEMICAL DEPENDENCY/SUBSTANCEABUSE PROGRAM, SOME INFORMATION MAY BE OMITTED. This clinical summary was aggregated from multiple sources. Caution should be exercised in using it in the provision of clinical care. This summary normalizes information from multiple sources, and as a consequence, information in this document may materially change the coding, format and clinical context of patient data. In addition, data may be omitted in some cases. CLINICAL DECISIONS SHOULD BE BASED ON THE PRIMARY CLINICAL RECORDS. [employer] provides no warranty or guarantee of the accuracy or completeness of information in this document.
== END 2023-10-26 23:59 | disposition home or self-care (01) ==
LOC: CT 06:44
PROVIDERS: PCP Family Medicine
DX: Z12.2 Encounter for screening for malignant neoplasm of respiratory organs (principal); F17.210 Nicotine dependence, cigarettes, uncomplicated
CPT/HCPCS: 71271

== ENCOUNTER 2024-09-18 07:33 | Emergency (ER) | payer OTHER, SELFPAY ==
[2024-09-18 07:34] VITALS: BP 166/119; PULSE 89; RESP 16; TEMP 36.8; O2SAT 98; BMI 25.9
--- NOTE | 2024-09-18 07:47 | EDS_ITS ---
HPI History of Present Illness Chief Complaint: GI Bleed Informant: patient Narrative Narrative: 74-year-old male presents with hematuria, dysuria, urgency, difficulty emptying his bladder. He states this has been off and on for 2 weeks, he had it 2 months ago and he states his doctor fixed it with a prescription for an antibiotic. He states he has an appointment at 3 PM today but he presents to the ER because he could not wait any longer due to the pain with trying to urinate. He also states something about blood in his stool. I have a significant amount of difficulty getting a straight answer from him but it seems that he has seen no blood in his stool, he has apparently provided a specimen that was Hemoccult positive at some point a couple of months ago, when one of his doctors checked it. However for a month or 2 he has been having intermittent diarrhea and tenesmus without abdominal pain, mucus, blood, or melena that he has noticed. States sometimes the stools go back to the regular. He denies any weakness, lightheadedness, back pain, fevers or chills, nausea or vomiting. [facility] Medical History Dizziness Hypokalemia Syncope Paroxysmal atrial fibrillation Nonischemic cardiomyopathy Essential hypertension Atherosclerosis of [place] coronary artery of [place] heart without angina pectoris Cerebrovascular accident (CVA) Smoking greater than 40 pack years GERD (gastroesophageal reflux disease) Osteoarthritis PTSD (post-traumatic stress disorder) Pleural effusion, right COPD with asthma History of cardioversion (06/27/19) Pre-operative cardiovascular examination, left ventricular ejection fraction < 35% Nonrheumatic mitral (valve) insufficiency Fatigue Tobacco use COPD (chronic obstructive pulmonary disease) Strain of left rotator cuff capsule Osteoarthritis Hyperlipidemia Systolic congestive heart failure Cardiomyopathy Orthopnea Chest pain Edema Shortness of breath Dyspnea on exertion Atrial fibrillation Home Medications ?Medication ?Instructions ?Recorded ?Last Taken ?Type duloxetine 60 mg capsule,delayed 60 mg PO DAILY PTSD 02/14/19 03/14/19 History release aspirin 81 mg tablet,delayed 81 mg PO DAILY 12/01/20 05/18/22 History release (Adult Aspirin Regimen) atorvastatin 40 mg tablet 40 mg PO QHS #90 tabs 12/01/20 Unknown Rx tamsulosin 0.4 mg capsule 0.4 mg PO 1800 prostate 12/01/20 Unknown History lisinopril 10 mg tablet 10 mg PO DAILY #90 tabs 06/04/21 05/18/22 Rx rivaroxaban 20 mg tablet 20 mg PO DAILY blood thinner #90 08/05/21 Unknown Rx tabs cholecalciferol (vitamin D3) 50 50 mcg PO DAILY 07/26/23 Unknown History mcg (2,000 unit) capsule cyanocobalamin (vitamin B-12) 1,000 mcg PO DAILY 07/26/23 Unknown History 1,000 mcg capsule [id number] 300 mcg-K 60 1 tab PO DAILY supplement 10/18/23 Unknown History mcg-lycop 600 mcg-lutein 300 mcg tablet nitroglycerin 0.4 mg sublingual 0.4 mg sublingual Q5M PRN chest 01/30/24 Unknown Rx tablet pain #25 tabs carvedilol 6.25 mg tablet 6.25 mg PO BID 03/16/24 Unknown History zinc gluconate 50 mg tablet 50 mg PO DAILY PRN 04/17/24 Unknown History potassium chloride 20 mEq 40 meq (2 x 20 mEq) PO BID #360 09/13/24 Unknown Rx tablet,extended release TABLETS Allergy/AdvReac Type Severity Reaction Status Date / Time metoprolol AdvReac Intermediate Succinate Verified 09/18/24 07:34 50 mg_ Dizzy and lightheaded Family History Mother CVA (cerebral vascular accident) Hypertension Surgical History History of left heart catheterization (LHC) (~03/09/22) History of right and left heart catheterization (03/14/19) History of bilateral inguinal hernia repair History of lumbar laminectomy Social History household members: spouse pets and animals: Yes pets and animals: cat(s) and dog(s) Smoking Status: Current every day smoker tobacco type: cigarettes and cigars Tobacco: How many years used: 50 second hand exposure: Yes alcohol intake: current alcohol intake frequency: a few times a week substance use type: does not use ROS ROS ED Constitutional Constitutional ED: Denies chills or fever(s) Eyes Eyes: Denies change in vision or diplopia ENT ENT ED: Denies rhinorrhea or sore throat Cardiovascular Cardiovascular: Denies chest pain, lightheadedness, palpitations or syncope Respiratory/Chest Respiratory/Chest: Denies cough, dyspnea or dyspnea on exertion Gastrointestinal Gastrointestinal: Reports diarrhea; Denies abdominal pain, melena, nausea or vomiting Genitourinary Genitourinary ED: Reports dysuria, hematuria and urinary frequency Musculoskeletal Musculoskeletal: Denies back pain or neck pain Integumentary Denies abscess or rash Neurologic Neurologic: Denies headache(s), paresthesias or weakness EXAM Physical Exam Const Vital Signs: 09/18/24 07:34 Temperature 98.3 F Temperature Source Oral Pulse Rate 89 Respiratory Rate 16 Blood Pressure 166/119 H Blood Pressure Mean 134 Pulse Ox 98 Oxygen Delivery Method Room Air Positive well nourished and well developed General Appearance ED: well developed and NAD HEENT Reports moist mucous membranes normocephalic and atraumatic Eyes PERRL and EOMs intact bilaterally Neck full ROM and supple Resp normal respiratory effort and clear to auscultation bilaterally Cardio regular rate Rate: Negative for tachycardic GI non-tender and non-distended Auscultation: normoactive bowel sounds Palpation: soft Back/Spine no CVA tenderness General Back: other FROM Extremity normal to inspection General Extremety ED: Negative for edema, pulses abnormal or tenderness General Extremity: Negative for edema or pulses abnormal Neuro oriented x3, CN's II-XII intact bilaterally, no sensory deficits noted and gait normal Sensorium / Orientation: awake and alert Motor Exam: strength 5/5 throughout Psych mental status grossly normal Skin no rashes or lesions noted and no wounds MDM MDM MDM Narrative Medical decision making narrative: Soon after seeing and examining the patient and he provided a nonbloody sample of diarrhea. Therefore I sent that for Hemoccult, enteric panel, and C. difficile since he recently was on an unknown antibiotic, obtain some basic labs, did urinalysis, and a bedside postvoid residual via bladder scanner. His postvoid residual was only about 140 cc, his urine shows blood but no sign of infection, and his labs are otherwise unremarkable. Given the pain that he is having with no signs of any infection I am sending him for a plain CT of the abdomen/pelvis to evaluate for the possibility of a stone or obstructive uropathy. His Hemoccult did come back positive, however his hemoglobin is 12.8 and stable compared with prior readings. I reviewed the CT images as well as the report which I agree with, it is showing something in the bladder that may be a diverticulum or a mass, but there is a lot of artifact scatter from his nearby left total hip arthroplasty limiting evaluation. As I discussed with the patient he need to see a urologist. Initially stated that he had an appointment at 3:00 today but he has a piece of paper that basically shows that he is supposed to get an outpatient CT scan, not even showing what body part so I am not sure exactly what the order is, I suspect it is probably abdomen/pelvis but hours is noncontrast, I advised him to cancel his appointment and speak with his physician at the [facility], he does not see a urologist there so I am referring him locally to urology which he prefers, as he will probably need a scope. He does not need a Webb catheter right now nor does he need antibiotics for what I am seeing. I am advising that he discontinue his anticoagulant, we discussed the risk/benefit of doing so, there would be risk and there would be risk to staying on the anticoagulant given the intermittent hematuria and occult GI bleeding he is having, with the obvious benefit of trying to stop the bleeding, as well as a risk of discontinuing anticoagulant of a stroke from what appears to be chronic atrial fibrillation. At this time I recommend discontinuing it and following up for further advice and studies. I advised taking aspirin 81 mg daily in the meantime. I also did send his diarrhea for C. difficile which was negative, enteric panel is pending. The patient understands the urgency of follow-up as he understands that this bladder mass may or may not be malignant. Lab Data Attestation: I reviewed the patient's lab results. Labs: Laboratory Results - last 24 hr 09/18/24 09/18/24 07:56 08:01 WBC 3.9 L RBC 3.80 L Hgb 12.8 L Hct 38.4 L MCV 101.1 H MCH 33.7 H MCHC 33.3 RDW Std Deviation 47.4 H RDW Coeff of Medardo 12.6 Plt Count 182 MPV 9.5 Immature Gran % (Auto) 0.300 Neut % (Auto) 49.1 Lymph % (Auto) 29.6 [place] % (Auto) 14.9 H Eos % (Auto) 5.1 H Baso % (Auto) 1.0 Absolute Neuts (auto) 1.9 L Absolute Lymphs (auto) 1.15 Nucleated RBC % 0 Sodium 141 Potassium 4.0 Chloride 110 H Carbon Dioxide 28.0 Anion Gap 3 L BUN 11 Creatinine 0.98 Estim Creat Clear Calc 70.39 Est GFR (MDRD) Af Amer 95 Est GFR (MDRD) Non-Af 78 BUN/Creatinine Ratio 11.2 Glucose 127 H Calcium 8.8 Urine Color Yellow Urine Clarity Clear Urine pH 7.0 Ur Specific [place] 1.010 Urine Protein 15 H Urine Glucose (UA) Normal Urine Ketones Negative Urine Occult Blood 250 H Urine Nitrite Negative Urine Bilirubin Negative Urine Urobilinogen Normal Ur Leukocyte Esterase Negative Urine RBC 25-50 SEEN Urine WBC 0-5 SEEN Ur Squamous Epith Cells 0-5 SEEN Urine Bacteria 0 SEEN Urine Mucus 0 SEEN Radiography Diagnostic Testing: Clinical Impression(s) from Imaging Studies Abdomen/Pelvis CT 09/18/24 08:21 IMPRESSION: 1. 4.5 cm low-attenuation lesion behind the left side of the posterior bladder wall with CT number of -18 Hounsfield units. Unfortunately, there are streak artifacts due to metallic hip arthroplasty obscuring the urinary bladder. I am uncertain if this is a urinary bladder diverticulum or not. Three-phase CT of the abdomen and pelvis is very helpful for further clarification. 2. No stones or hydronephrosis in both kidneys. 3. No other significant abnormality in the abdomen and pelvis. Electronically Signed: Ben Rojas MD at 9:22 EST Reading Location ID and State: [address] [place] [address] , Service support , Rhythm Strip Rhythm Strip: A-fib Rate: 80 Ectopy: None Discharge Plan Triage Chief Complaint: GI Bleed ED Provider: Yusuf Enriquez Dx/Rx/DC Orders Clinical Impression: Hematuria, Bladder mass, Occult GI bleeding, Anticoagulated, Acute diarrhea, Dysuria, Paroxysmal atrial fibrillation Instructions: ED Hematuria Prescriptions: Continued duloxetine 60 mg capsule,delayed release(DR/EC) 60 mg PO DAILY tamsulosin 0.4 mg capsule 0.4 mg PO 1800 aspirin [Adult Aspirin Regimen] 81 mg tablet,delayed release (DR/EC) 81 mg PO DAILY atorvastatin 40 mg tablet 40 mg PO QHS Qty: 90 3RF lisinopril 10 mg tablet 10 mg PO DAILY Qty: 90 3RF zinc gluconate 50 mg tablet 50 mg PO DAILY PRN cholecalciferol (vitamin D3) 50 mcg (2,000 unit) capsule 50 mcg PO DAILY cyanocobalamin (vitamin B-12) 1,000 mcg capsule 1,000 mcg PO DAILY [id number] mcg tablet 1 tab PO DAILY nitroglycerin 0.4 mg tablet, sublingual 0.4 mg sublingual Q5M PRN (Reason: chest pain) Qty: 25 3RF Rx Instructions: do not exceed 3 doses per episode carvedilol 6.25 mg tablet 6.25 mg PO BID Rx Instructions: must administer with a meal/food potassium chloride 20 mEq tablet extended release 40 meq PO BID Qty: 360 3RF Held rivaroxaban 20 mg tablet 20 mg PO DAILY Qty: 90 3RF Hold Instructions: Until told otherwise by one of your physicians or specialists Primary Care Provider: Reymundo Zavala Referrals: Angel Fagan MD [Med Staff - Active Staff] - As soon as possible Activity Restrictions/Additional Instructions: Today you had a CT of the abdomen/pelvis without contrast. [facility] have an appointment to see if this is the linda dy they were having you do, and if they still want you to come for the study or if this is good enough, we attempted to [facility] to the [facility] so that your physician will be able to access it and the result. Print Language: Japanese Disposition Disposition: Home, Self Care
[2024-09-18 08:01] LABS: Bacteria 0 SEEN /hpf (None Seen); Mucous, Urine 0 SEEN /hpf (<or=2+)
[2024-09-18 08:03] LABS: Color, Urine Yellow (Yellow); Glucose, Dipstick Normal (Normal); Ketone-Dipstick Negative (Negative); Leukocyte Esterase-Dipstick Negative /ul (Negative); Nitrite-Dipstick Negative (Negative); Occult Blood-Urine 250 /ul (Negative); Protein-Dipstick 15 mg/dl (Negative); Urine Bilirubin Dipstick Negative (Negative); Urine Clarity Clear (Clear); Urine Urobilinogen Normal (Normal)
[2024-09-18 08:07] LABS: Absolute Lymphocyte Count 1.15 X10^3/uL (0.83-4.51); Absolute Neutrophil Count 1.9 X10^3/uL (2.0-7.7); Basophil# 0.04 X10^3/uL; Eosinophils% 5.1 % (0-5); Hematocrit 38.4 % (40-54); Hemoglobin 12.8 g/dL (13.0-16.5); Lymphocyte # 1.15 X10^3/ul (0.83-4.51); Lymphocyte % 29.6 % (19-41); Mean Corp Hgb Conc 33.3 g/dL (32-36); Mean Corpuscular Hgb 33.7 pg (27.0-32.0); Mean Corpuscular Volume 101.1 fL (80-94); Mean Platelet Vol. 9.5 fl (6.2-12.0); Monocyte# 0.58 X10^3/uL; Monocyte% 14.9 % (0-10); NRBC Flagged by Analyzer 0 % (0-5); Neutrophil # 1.91 X10^3/uL (2.7-7.7); Neutrophil % 49.1 % (47-70); Platelet Count 182 K/mm3 (150-450); RBC Distribution Width CV 12.6 % (11.6-14.6); RBC Distribution Width SD 47.4 fl (35.1-43.9); White Blood Count 3.9 K/mm3 (4.4-11.0)
[2024-09-18 08:15] LABS: Red Blood Cells-Urine 25-50 SEEN /hpf (0-5); Squamous Epithelial Cells - UA 0-5 SEEN /hpf (0-5); White Blood Cells 0-5 SEEN /hpf (0-5)
[2024-09-18 08:18] LABS: Anion Gap 3 (5-15); BUN 11 mg/dL (7-18); BUN/Creat Ratio 11.2 RATIO (10-20); Calcium,Total 8.8 mg/dL (8.5-10.1); Chloride 110 mmol/L (98-107); Creatinine, Serum 0.98 mg/dL (0.70-1.30); EST Glomerular Filtration Rate 78 mL/min (>60); Est Glom Filt Rate - Afr Amer 95 mL/min (>60); Estimated Creatinine Clearance 70.39 ml/min; Glucose 127 mg/dL (74-106); Sodium Level 141 mmol/L (136-145)
--- NOTE | 2024-09-18 08:21 | CT_ITS ---
EXAM: CT ABDOMEN AND PELVIS WITHOUT INTRAVENOUS CONTRAST CLINICAL INDICATION: hematuria, pelvic pain TECHNIQUE: Helically acquired images were obtained of the abdomen and pelvis without intravenous contrast. This CT exam was performed using one or more of the following dose reduction techniques: automated exposure control, adjustment of the mA and/or kV according to patient size, and/or use of iterative reconstruction technique. RADIATION DOSE: CTDIvol = 7.98 mGy, DLP = 384.70 mGy-cm COMPARISON: No relevant prior studies available. FINDINGS: LOWER THORAX: Curvilinear atelectases or scarring in the lung bases. Mild cardiomegaly. Normal pericardium. Thin-walled cysts in the right lower lung zone. ABDOMEN: LIVER: Unremarkable. Homogeneous. GALLBLADDER AND BILE DUCTS: Unremarkable. No calcified gallstones. No gallbladder distention or wall edema. No intra- or extrahepatic biliary ductal dilation. PANCREAS: Unremarkable. No focal cystic mass. SPLEEN: Unremarkable. Normal size without focal cystic or solid mass. ADRENALS: Unremarkable. No nodules. KIDNEYS AND URETERS: 3.7 cm hypodense cyst in the left posterior renal cortex with CT number of -2.6 Hounsfield units. No stones or hydronephrosis in both kidneys. Normal renal size and position. STOMACH AND BOWEL: Diverticula in the sigmoid colon without diverticulitis. No stomach or bowel distention. PELVIS: APPENDIX: Normal. BLADDER: 4.5 cm adjacent and behind the left side of the posterior urinary bladder wall with CT number of -18 Hounsfield units. REPRODUCTIVE: Unremarkable as visualized. No mass. ABDOMEN and PELVIS: INTRAPERITONEAL SPACE: Unremarkable. No ascites or other fluid collection. No free air. BONES/JOINTS: Left metallic hip arthroplasty causing streak artifacts on the urinary bladder. Mild old central compression fracture of the upper L3 vertebral body. Pronounced disc space height narrowing at L4-L5 and L5-S1 disc space levels. No suspicious lytic or blastic abnormality. SOFT TISSUES: Unremarkable. No discrete abdominal or pelvic wall hernia. VASCULATURE: Calcified plaques along the abdominal aorta and iliac arteries. Abdominal aorta is non-dilated. LYMPH NODES: Unremarkable. No enlarged lymph nodes. CT/Abdomen/Pelvis without Cont IMPRESSION: 1. 4.5 cm low-attenuation lesion behind the left side of the posterior bladder wall with CT number of -18 Hounsfield units. Unfortunately, there are streak artifacts due to metallic hip arthroplasty obscuring the urinary bladder. I am uncertain if this is a urinary bladder diverticulum or not. Three-phase CT of the abdomen and pelvis is very helpful for further clarification. 2. No stones or hydronephrosis in both kidneys. 3. No other significant abnormality in the abdomen and pelvis. Electronically Signed: Ben Rojas MD at 9:22 EST ,
[2024-09-18 09:33] VITALS: BP 134/78; PULSE 89; RESP 18; O2SAT 96
== END 2024-09-18 09:51 | disposition home or self-care (01) ==
PROVIDERS: Emergency Provider Emergency Medicine; PCP Family Medicine; Visit Provider Emergency Medicine
DX: R31.9 Hematuria, unspecified (principal); I50.20 Unspecified systolic (congestive) heart failure; I11.0 Hypertensive heart disease with heart failure; J44.9 Chronic obstructive pulmonary disease, unspecified; I48.0 Paroxysmal atrial fibrillation; I42.8 Other cardiomyopathies; K92.1 Melena; N32.9 Bladder disorder, unspecified; R30.0 Dysuria; I34.0 Nonrheumatic mitral (valve) insufficiency; I25.10 Atherosclerotic heart disease of native coronary artery without angina pectoris; K21.9 Gastro-esophageal reflux disease without esophagitis; F43.10 Post-traumatic stress disorder, unspecified; E78.5 Hyperlipidemia, unspecified; M19.90 Unspecified osteoarthritis, unspecified site; F17.210 Nicotine dependence, cigarettes, uncomplicated; F17.290 Nicotine dependence, other tobacco product, uncomplicated; Z79.01 Long term (current) use of anticoagulants; Z79.82 Long term (current) use of aspirin; Z86.73 Personal history of transient ischemic attack (TIA), and cerebral infarction without residual deficits; Z79.899 Other long term (current) drug therapy
CPT/HCPCS: 74176; 80048; 81001; 82274; 85025; 87493; 87506; 99282

== ENCOUNTER 2024-10-25 20:53 | Emergency (ER) | payer OTHER, SELFPAY ==
[2024-10-25 20:56] VITALS: BP 109/74; PULSE 75; RESP 26; TEMP 36.8; BMI 25.6
[2024-10-25 21:53] VITALS: BP 101/64; PULSE 77; RESP 15; O2SAT 96
[2024-10-25 22:00] VITALS: BP 100/57; PULSE 77; RESP 18; O2SAT 94
--- NOTE | 2024-10-25 22:09 | CT_ITS ---
EXAM: BRAIN/HEAD WITHOUT CONTRAST CLINICAL HISTORY: Head injury COMPARISON: 08/09/2023 TECHNIQUE: Noncontrast images of the head with multiplanar reconstructions. Dose reduction techniques were used including intermediate exposure control (AEC),iterative reconstruction technique, and/or mA and/or KV dose adjustments based on patient's size. FINDINGS: CT HEAD FINDINGS: No acute intracranial hemorrhage, mass, mass effect, midline shift or pathologic extra-axial fluid collection. Nonspecific periventricular white matter changes are noted. No hydrocephalus. Age- appropriate cerebral volume and white matter. Visualized paranasal sinuses and mastoid air cells are clear. The calvarium is grossly intact. CT/Brain/Head without Contrast IMPRESSION: 1. No acute intracranial abnormality. 2. Age-appropriate volume loss and remote small vessel ischemic changes Reading Location: [facility]
--- NOTE | 2024-10-25 22:10 | EKG12_ITS ---
Test Reason : DYSRHYTHMIA Blood Pressure : */* mmHG Vent. Rate : 75 BPM Atrial Rate : * BPM P-R Int : * ms QRS Dur : 76 ms QT Int : 404 ms P-R-T Axes : * 60 28 degrees QTcB Int : 451 ms Atrial fibrillation with premature ventricular or aberrantly conducted complexes Low voltage QRS Septal infarct , age undetermined Abnormal ECG Confirmed by CLINT KLEIN, RUFUS ([id number]), department editor SIMÓN BEDOLLA ([id number]) on 10/29/2024 6:07:34 AM Referred By: Confirmed By: RUFUS JARAMILLO MD
--- NOTE | 2024-10-25 22:10 | EX.ED.DYSGE1 ---
HPI History of Present Illness Chief Complaint: Palpitations Informant: patient Narrative Narrative: Brought in by EMS from home for syncopal episode. Patient reports he heard the door slam he got up quickly is walking towards the door felt lightheaded went down. No proximal chest pains or shortness of breath. He hit his head on the wall. No headache. He is on Xarelto for history of A-fib. States had problems urination recently followed up with urology a little over a week ago he was started on tamsulosin and another medication he cannot recall the name. Denies vomiting. States he is being scheduled for procedure for his prostate. [facility] Medical History Dizziness Hypokalemia Syncope Paroxysmal atrial fibrillation Nonischemic cardiomyopathy Essential hypertension Atherosclerosis of [place] coronary artery of [place] heart without angina pectoris Cerebrovascular accident (CVA) Smoking greater than 40 pack years GERD (gastroesophageal reflux disease) Osteoarthritis PTSD (post-traumatic stress disorder) Pleural effusion, right COPD with asthma History of cardioversion (06/27/19) Pre-operative cardiovascular examination, left ventricular ejection fraction < 35% Nonrheumatic mitral (valve) insufficiency Fatigue Tobacco use COPD (chronic obstructive pulmonary disease) Strain of left rotator cuff capsule Osteoarthritis Hyperlipidemia Systolic congestive heart failure Cardiomyopathy Orthopnea Chest pain Edema Shortness of breath Dyspnea on exertion Atrial fibrillation Home Medications ?Medication ?Instructions ?Recorded ?Last Taken ?Type duloxetine 60 mg capsule,delayed 60 mg PO DAILY PTSD 02/14/19 03/14/19 History release aspirin 81 mg tablet,delayed 81 mg PO DAILY 12/01/20 05/18/22 History release (Adult Aspirin Regimen) atorvastatin 40 mg tablet 40 mg PO QHS #90 tabs 12/01/20 Unknown Rx tamsulosin 0.4 mg capsule 0.4 mg PO 1800 prostate 12/01/20 Unknown History lisinopril 10 mg tablet 10 mg PO DAILY #90 tabs 06/04/21 05/18/22 Rx rivaroxaban 20 mg tablet 20 mg PO DAILY blood thinner #90 08/05/21 Unknown Rx Held on 09/18/24. tabs Instructions: Until told otherwise by one of your physicians or specialists cholecalciferol (vitamin D3) 50 50 mcg PO DAILY 07/26/23 Unknown History mcg (2,000 unit) capsule cyanocobalamin (vitamin B-12) 1,000 mcg PO DAILY 07/26/23 Unknown History 1,000 mcg capsule [id number] 300 mcg-K 60 1 tab PO DAILY supplement 10/18/23 Unknown History mcg-lycop 600 mcg-lutein 300 mcg tablet nitroglycerin 0.4 mg sublingual 0.4 mg sublingual Q5M PRN chest 01/30/24 Unknown Rx tablet pain #25 tabs carvedilol 6.25 mg tablet 6.25 mg PO BID 03/16/24 Unknown History zinc gluconate 50 mg tablet 50 mg PO DAILY PRN 04/17/24 Unknown History potassium chloride 20 mEq 40 meq (2 x 20 mEq) PO BID #360 09/13/24 Unknown Rx tablet,extended release TABLETS Allergy/AdvReac Type Severity Reaction Status Date / Time metoprolol AdvReac Intermediate Succinate Verified 09/18/24 07:34 50 mg_ Dizzy and lightheaded Family History Mother CVA (cerebral vascular accident) Hypertension Surgical History History of left heart catheterization (LHC) (~03/09/22) History of right and left heart catheterization (03/14/19) History of bilateral inguinal hernia repair History of lumbar laminectomy Social History household members: spouse pets and animals: Yes pets and animals: cat(s) and dog(s) Smoking Status: Current every day smoker tobacco type: cigarettes and cigars Tobacco: How many years used: 50 second hand exposure: Yes alcohol intake: current alcohol intake frequency: a few times a week substance use type: does not use ROS ROS ED Constitutional Constitutional ED: Denies chills, fever(s) or sweats ENT ENT ED: Denies sore throat Cardiovascular Cardiovascular: Reports other Details: Syncope ; Denies chest pain, leg edema, palpitations or racing heartbeat Respiratory/Chest Respiratory/Chest: Denies cough, dyspnea or dyspnea on exertion Gastrointestinal Gastrointestinal: Denies abdominal pain, diarrhea, nausea or vomiting Genitourinary Genitourinary ED: Denies dysuria, hematuria or urinary frequency Musculoskeletal Musculoskeletal: Denies back pain, extremity pain or neck pain Integumentary Denies rash or wounds Neurologic Neurologic: Denies headache(s), paresthesias or weakness EXAM Physical Exam Const Vital Signs: 10/25/24 20:56 10/25/24 21:53 10/25/24 22:00 Temperature 98.2 F Temperature Source Oral Pulse Rate 75 77 77 Respiratory Rate 26 H 15 18 Blood Pressure 109/74 101/64 100/57 L Blood Pressure Mean 85 76 71 Pulse Ox 96 94 Oxygen Delivery Method Room Air Room Air Room Air 10/25/24 23:00 10/26/24 00:00 10/26/24 00:05 Temperature 98.2 F Temperature Source Pulse Rate 80 84 84 Respiratory Rate 22 H 21 H 21 H Blood Pressure 103/68 111/73 111/73 Blood Pressure Mean 79 85 85 Pulse Ox 96 96 96 Oxygen Delivery Method Room Air Room Air Positive well nourished and well developed Constitutional Narrative: GCS 15 General Appearance ED: well developed and NAD HEENT Reports moist mucous membranes normocephalic and atraumatic Eyes General Eye ED: Yes normal appearance of both eyes Neck full ROM Neck Narrative: No tenderness. Chest Wall inspection of chest normal and palpation of chest normal Chest: Negative for tenderness Resp normal respiratory effort and normal air movement Effort and Inspection: symmetric chest movement; Negative for respiratory distress Cardio regular rate and no murmurs Rhythm: abnormal rhythm Peripheral Pulses: pulses 2+ throughout GI normal to inspection, nondistended, normoactive bowel sounds and non-tender Palpation: Negative for guarding or rebound tenderness present Extremity normal to inspection General Extremety ED: Negative for edema or tenderness General Extremity: Negative for edema Neuro oriented x3, CN's II-XII intact bilaterally and no sensory deficits noted Sensorium / Orientation: awake and alert Skin no rashes or lesions noted and no wounds MDM MDM MDM Narrative Medical decision making narrative: Interventions / MDM: Differential diagnosis: Syncope, transient hypotension, chronic A-fib Diagnosis considered but do not suspect: Intracranial hemorrhage however CT negative. My EKG interpretation: Rate controlled A-fib at 75, no ST or T wave changes. Imaging independently reviewed and interpreted by myself: CT brain negative. External documents reviewed: N/A Test considered but not ordered:N/A ED course: Patient syncopal episode EKG rate controlled A-fib. No focal deficit on exam. For urine issues. No vomiting diarrhea. He had head injury on Xarelto. CT brain labs and urine ordered for further evaluation. 2318: White count 4.4 hemoglobin 12.5. Creatinine 0.97. Potassium 3.0. Sodium 140. Oral replacement was given of potassium. Urine was negative. Blood pressure 103/68. Patient will be ambulated for evaluation for stabilization. Patient ambulated with no difficulties. Recently placed on tamsulosin with low blood pressure. Needs this for his prostate. Therefore discussed with him to decrease his Coreg to half a tab twice a day. Patient understands. Outpatient follow-up. All questions were answered. Re-evaluation: stable Disposition discussed with patient/family/significant other: Patient Case discussed with consulting clinician: N/A This note was generated with [employer] dictation software. It may contain incorrect words, spelling, and punctuation that were not noted in checking the note before signing. Lab Data Attestation: I reviewed the patient's lab results. Labs: Laboratory Results - last 24 hr 10/25/24 10/25/24 21:02 22:36 WBC 4.4 RBC 3.67 L Hgb 12.5 L Hct 35.9 L MCV 97.8 H MCH 34.1 H MCHC 34.8 RDW Std Deviation 44.9 H RDW Coeff of [place] 12.5 Plt Count 198 MPV 10.1 Immature Gran % (Auto) 0.500 Neut % (Auto) 47.7 Lymph % (Auto) 32.7 [place] % (Auto) 11.6 H Eos % (Auto) 6.4 H Baso % (Auto) 1.1 H Absolute Neuts (auto) 2.1 Absolute Lymphs (auto) 1.44 Nucleated RBC % 0 Sodium 140 Potassium 3.0 L Chloride 104 Carbon Dioxide 27.0 Anion Gap 9 BUN 11 Creatinine 0.97 Estim Creat Clear Calc 71.11 Est GFR (MDRD) Af Amer 97 Est GFR (MDRD) Non-Af 80 BUN/Creatinine Ratio 11.4 Glucose 158 H Calcium 8.5 Urine Color Yellow Urine Clarity Clear Urine pH 6.0 Ur Specific [place] 1.010 Urine Protein Negative Urine Glucose (UA) Normal Urine Ketones Negative Urine Occult Blood Negative Urine Nitrite Negative Urine Bilirubin Negative Urine Urobilinogen Normal Ur Leukocyte Esterase Negative Urine RBC 0 SEEN Urine WBC 0 SEEN Ur Squamous Epith Cells 0 SEEN Urine Bacteria 0 SEEN Urine Mucus 0 SEEN Radiography Diagnostic Testing: Clinical Impression(s) from Imaging Studies Brain CT 10/25/24 22:09 IMPRESSION: 1. No acute intracranial abnormality. 2. Age-appropriate volume loss and remote small vessel ischemic changes Reading Location: [facility] Discharge Plan Triage Chief Complaint: Palpitations ED Provider: Prasad Francisco Dx/Rx/DC Orders Clinical Impression: Syncope, Atrial fibrillation, Hypokalemia, Transient hypotension Instructions: Treating Syncope: Prevention, ED AFIB Prescriptions: No Action duloxetine 60 mg capsule,delayed release(DR/EC) 60 mg PO DAILY tamsulosin 0.4 mg capsule 0.4 mg PO 1800 aspirin [Adult Aspirin Regimen] 81 mg tablet,delayed release (DR/EC) 81 mg PO DAILY atorvastatin 40 mg tablet 40 mg PO QHS Qty: 90 3RF lisinopril 10 mg tablet 10 mg PO DAILY Qty: 90 3RF zinc gluconate 50 mg tablet 50 mg PO DAILY PRN cholecalciferol (vitamin D3) 50 mcg (2,000 unit) capsule 50 mcg PO DAILY cyanocobalamin (vitamin B-12) 1,000 mcg capsule 1,000 mcg PO DAILY [id number] mcg tablet 1 tab PO DAILY rivaroxaban 20 mg tablet 20 mg PO DAILY Qty: 90 3RF nitroglycerin 0.4 mg tablet, sublingual 0.4 mg sublingual Q5M PRN (Reason: chest pain) Qty: 25 3RF Rx Instructions: do not exceed 3 doses per episode carvedilol 6.25 mg tablet 6.25 mg PO BID Rx Instructions: must administer with a meal/food potassium chloride 20 mEq tablet extended release 40 meq PO BID Qty: 360 3RF Primary Care Provider: Reymundo Zavala Referrals: Reymundo Zavala MD [Primary Care Provider] - 1 Week Activity Restrictions/Additional Instructions: EKG rate controlled A-fib. Blood pressure improved with fluids. You reported recent start of tamsulosin for your prostate. Head CT negative. Labs noted slight hypokalemia with oral replacement given. Cut your carvedilol in half to take twice a day instead of a full tab to avoid low blood pressure. If you develop recurrent symptoms, return to the ED for reevaluation. Print Language: Arabic Disposition Disposition: Home, Self Care Discharge Date/Time: 10/26/24 00:18
[2024-10-25 22:37] LABS: Anion Gap 9 (5-15); BUN 11 mg/dL (7-18); BUN/Creat Ratio 11.4 RATIO (10-20); Calcium,Total 8.5 mg/dL (8.5-10.1); Chloride 104 mmol/L (98-107); Creatinine, Serum 0.97 mg/dL (0.70-1.30); EST Glomerular Filtration Rate 80 mL/min (>60); Est Glom Filt Rate - Afr Amer 97 mL/min (>60); Estimated Creatinine Clearance 71.11 ml/min; Glucose 158 mg/dL (74-106); Sodium Level 140 mmol/L (136-145)
[2024-10-25 22:39] LABS: Absolute Lymphocyte Count 1.44 X10^3/uL (0.83-4.51); Absolute Neutrophil Count 2.1 X10^3/uL (2.0-7.7); Basophil# 0.05 X10^3/uL; Basophil% 1.1 % (0-1); Eosinophil# 0.28 X10^3/uL; Eosinophils% 6.4 % (0-5); Hematocrit 35.9 % (40-54); Hemoglobin 12.5 g/dL (13.0-16.5); Lymphocyte # 1.44 X10^3/ul (0.83-4.51); Lymphocyte % 32.7 % (19-41); Mean Corp Hgb Conc 34.8 g/dL (32-36); Mean Corpuscular Hgb 34.1 pg (27.0-32.0); Mean Corpuscular Volume 97.8 fL (80-94); Mean Platelet Vol. 10.1 fl (6.2-12.0); Monocyte# 0.51 X10^3/uL; Monocyte% 11.6 % (0-10); NRBC Flagged by Analyzer 0 % (0-5); Neutrophil % 47.7 % (47-70); Platelet Count 198 K/mm3 (150-450); RBC Distribution Width CV 12.5 % (11.6-14.6); RBC Distribution Width SD 44.9 fl (35.1-43.9); Red Blood Count 3.67 M/mm3 (4.6-6.2); White Blood Count 4.4 K/mm3 (4.4-11.0)
[2024-10-25 22:47] LABS: Bacteria 0 SEEN /hpf (None Seen); Mucous, Urine 0 SEEN /hpf (<or=2+); Red Blood Cells-Urine 0 SEEN /hpf (0-5); Squamous Epithelial Cells - UA 0 SEEN /hpf (0-5); White Blood Cells 0 SEEN /hpf (0-5)
[2024-10-25 22:59] LABS: Color, Urine Yellow (Yellow); Glucose, Dipstick Normal (Normal); Ketone-Dipstick Negative (Negative); Leukocyte Esterase-Dipstick Negative /ul (Negative); Nitrite-Dipstick Negative (Negative); Occult Blood-Urine Negative /ul (Negative); Protein-Dipstick Negative (Negative); Urine Bilirubin Dipstick Negative (Negative); Urine Clarity Clear (Clear); Urine Urobilinogen Normal (Normal)
[2024-10-25 23:00] VITALS: BP 103/68; PULSE 80; RESP 22; O2SAT 96
[2024-10-25 23:17] VITALS: O2SAT 95
[2024-10-25] MEDS: Potassium Chloride Oral Tablet 20 MEQ 40 MEQ PO (23:36)
[2024-10-26] VITALS: BP 111/73; PULSE 84; RESP 21; O2SAT 96
[2024-10-26 00:05] VITALS: BP 111/73; PULSE 84; RESP 21; TEMP 36.8; O2SAT 96
== END 2024-10-26 00:18 | disposition home or self-care (01) ==
PROVIDERS: Emergency Provider Emergency Medicine; PCP Family Medicine; Visit Provider Emergency Medicine
DX: R55 Syncope and collapse (principal); I11.0 Hypertensive heart disease with heart failure; I50.22 Chronic systolic (congestive) heart failure; J44.9 Chronic obstructive pulmonary disease, unspecified; I48.0 Paroxysmal atrial fibrillation; I42.8 Other cardiomyopathies; R39.198 Other difficulties with micturition; S09.90XA Unspecified injury of head, initial encounter; X58.XXXA Exposure to other specified factors, initial encounter; I95.9 Hypotension, unspecified; E87.6 Hypokalemia; I25.10 Atherosclerotic heart disease of native coronary artery without angina pectoris; K21.9 Gastro-esophageal reflux disease without esophagitis; F43.10 Post-traumatic stress disorder, unspecified; I34.0 Nonrheumatic mitral (valve) insufficiency; E78.5 Hyperlipidemia, unspecified; M19.90 Unspecified osteoarthritis, unspecified site; F17.210 Nicotine dependence, cigarettes, uncomplicated; F17.290 Nicotine dependence, other tobacco product, uncomplicated; Z79.01 Long term (current) use of anticoagulants; Z86.73 Personal history of transient ischemic attack (TIA), and cerebral infarction without residual deficits; Z79.82 Long term (current) use of aspirin; Z79.899 Other long term (current) drug therapy
CPT/HCPCS: 70450; 80048; 81001; 85025; 93005; 99285; A4216

== ENCOUNTER → 2024-12-03 | Outpatient (CLI) | payer MEDICARE, SELFPAY ==
--- NOTE | 2024-12-03 12:14 | STRESSREP_ITS ---
Stress Test Report Date: 12/03/2024 Procedure: Pharmacologic stress nuclear imaging study Indications: Preoperative evaluation Consent: Per the patient Procedure: The patient underwent pharmacologic (Regadenoson) evaluation with a peak heart rate of 105 beats per minute (72%predicted maximal heart rate) and a peak blood pressure of 138/90 mmHg. The baseline ECG demonstrated atrial fibrillation. EKG during lexiscan infusion revealed no significant ischemic changes. EKG post infusion revealed no significant ischemic changes [There were no cardiac dysrhythmias pretest, during pharmacologic infusion, or recovery]. [There was no complaint of chest discomfort during pharmacologic infusion or recovery]. The examination was discontinued secondary to completion of protocol. Impression: 1. Lexiscan stress test test is negative for Lexiscan infusion induced EKG changes of ischemia. 2. Lexiscan stress test test is negative for Lexiscan infusion induced chest pain. 3. Results of the nuclear portion of the test is as below Myocardial perfusion imaging study: Technique: The patient was injected with 11.8 millicuries of technetium 99m Cardiolite and subsequently rest SPECT Cardiolite nuclear imaging was obtained in the horizontal long, vertical long, and short axis views. The patient underwent pharmacologic [Regadenoson 0.4mg] evaluation. Please see above for details. The patient was injected with 34.4 millicuries of technetium 99m Cardiolite and subsequently stress SPECT Cardiolite nuclear imaging was obtained in the h orizontal long, vertical long, and short axis views. A gated Cardiolite study at peak stress was obtained. Interpretation: Rest and stress SPECT Cardiolite nuclear imaging status post realignment, normalization, and attenuation correction demonstrate no evidence of significant ischemia or infarction. Gated images reveal no significant regional wall motion abnormalities. The reported LVEF is 55%. Impression: 1. There is no evidence of significant ischemia or infarction. 2. Estimated ejection fraction is 55%. This note was generated with [employer] software. It may contain incorrect words, spelling, and punctuation that were not noted in checking the note before signing.
== END | disposition home or self-care (01) ==
LOC: CVS 05:53
PROVIDERS: Referring Provider Internal Medicine Cardiovascular Disease; Visit Provider Internal Medicine Cardiovascular Disease
DX: I25.10 Atherosclerotic heart disease of native coronary artery without angina pectoris (principal); R07.9 Chest pain, unspecified
CPT/HCPCS: 78452; 93017; A9500; A4216; J2785

== ENCOUNTER 2024-12-19 14:35 | Outpatient (CLI) | payer MEDICARE, SELFPAY ==
[2024-11-15 15:34] LABS: AST(SGOT) 18 U/L (15-37); Alanine Aminotransfer ALT/SGPT 25 U/L (16-61); Albumin, Serum 3.6 g/dL (3.2-5.0); Alkaline Phosphatase 68 U/L (45-117); Anion Gap 4 (5-15); BUN 12 mg/dL (7-18); BUN/Creat Ratio 14.4 RATIO (10-20); Bilirubin, Direct 0.14 mg/dL (0.00-0.30); Calcium,Total 9.1 mg/dL (8.5-10.1); Chloride 108 mmol/L (98-107); Creatinine, Serum 0.83 mg/dL (0.70-1.30); EST Glomerular Filtration Rate 95 mL/min (>60); Est Glom Filt Rate - Afr Amer 115 mL/min (>60); Globulin 4.4 g/dL (2.2-4.2); Glucose 90 mg/dL (74-106); Potassium 3.5 mmol/L (3.5-5.1); Sodium Level 140 mmol/L (136-145)
[2024-11-15 15:54] LABS: International Normalized Ratio 1.5; Partial Thromboplast Time 32.4 Seconds (24.1-36.2); Prothrombin Time (Protime)PT. 18.3 SECONDS (11.7-14.9)
--- NOTE | 2024-11-16 16:05 | PAT.ANESEVAL ---
Pre-Assessment Diagnosis/Proposed Procedure Planned Operative Procedure(s): TURP Anesthesia History Anesthesia History - harnessmaker: Anesthesia History - harnessmaker Hx Hospitalization No 11/15/24 13:54 Any Problems With Anesthesia No 11/15/24 13:54 Cholinesterase deficiency No 11/15/24 13:54 You/Your Family Experience No 11/15/24 13:54 fever (hyperthermia) with Relationship Recent Exposure to Contagious No 08/01/19 08:50 Disease Does patient have nerve No 11/15/24 13:54 stimulator Patient instructed to have device shut off --Does patient have Pacemaker or ICD? When Was Last Pacemaker Check QUESTION #4 FULL TEXT: You/Your Family Experience fever (hyperthermia) with Anesthesia Last Oral Intake Last Oral intake: Last Oral Intake NPO since Meds taken in AM with sips of water? Meds patient instructed to take am of surgery PONV PONV - harnessmaker: PONV - harnessmaker Female No 11/15/24 13:54 HX of Motion Sickness No 11/15/24 13:54 HX of N/V After Surgery No 11/15/24 13:54 Non-Smoker No 11/15/24 13:54 Duration of Surgery greater Yes 11/15/24 13:54 than 60 minutes Number of Risk Factors 1 11/15/24 13:54 PONV Score Low Risk 11/15/24 13:54 Height & Weight Height & Weight: Anesthesia: Height & Weight Height 6 ft 10/25/24 20:56 Respiratory Assessment Respiratory Assessment - harnessmaker: Respiratory Tract Infection Hx - harnessmaker Hx Respiratory Tract Infection No 11/15/24 13:54 STOP Sleep Apnea STOP Sleep Apnea - harnessmaker: STOP Sleep Apnea - harnessmaker Hx Hypertension Yes: NOT WELL CONTROLLED AT 11/15/24 13:[address] WEISS AWARE Hx Sleep Apnea No 11/15/24 13:54 CPAP No 08/01/19 12:47 BIPAP Do you snore loudly (louder No 11/15/24 13:54 than talking or can be heard Do you often feel tired/ No 11/15/24 13:54 fatigued/ sleepy during daytime? Has anyone observed you stop No 11/15/24 13:54 breathing during sleep? STOP Results Negative 11/15/24 13:54 QUESTION #5 FULL TEXT : Do you snore loudly (louder than talking or can be heard through closed doors)? 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 Specify any problems Hx of Preganancy in last 3 N/A 11/15/24 13:54 Months Nurse Filling Out Transfusion DSCHRIBER 11/15/24 13:54 & Questions: Date: 11/15/24 11/15/24 13:54 Time: 13:57 11/15/24 13:54 Patient unable to answer at this time (ie. confused, unrespo /Reproduction History /Reproductive History - harnessmaker: /Reproductive Hx- harnessmaker Hx Now No 11/15/24 13:54 Gestational Age (in weeks): EDC: Hx Hx Para Hx Section SAB No 11/15/24 13:54 PFSH Medical History (Updated 11/15/24 @ 14:09 by Camelia Gutiérrez) Wears hearing aid Wears glasses Wears dentures Depression Alcohol use Prostate disease High cholesterol Syncope History of IBS History of echocardiogram History of Holter monitoring History of stress test Cardiology follow-up encounter History of heart attack Smoker Dizziness Hypokalemia Syncope Paroxysmal atrial fibrillation Nonischemic cardiomyopathy Essential hypertension Atherosclerosis of [place] coronary artery of [place] heart without angina pectoris Cerebrovascular accident (CVA) GERD (gastroesophageal reflux disease) Osteoarthritis PTSD (post-traumatic stress disorder) Pleural effusion, right COPD with asthma History of cardioversion (06/27/19) Pre-operative cardiovascular examination, left ventricular ejection fraction < 35% Nonrheumatic mitral (valve) insufficiency Fatigue Tobacco use COPD (chronic obstructive pulmonary disease) Osteoarthritis Hyperlipidemia Systolic congestive heart failure Cardiomyopathy Orthopnea Chest pain Edema Shortness of breath Dyspnea on exertion Atrial fibrillation Home Medications ?Medication ?Instructions ?Recorded ?Last Taken ?Type duloxetine 60 mg capsule,delayed 60 mg PO DAILY PTSD 02/14/19 03/14/19 History release atorvastatin 40 mg tablet 40 mg PO QHS #90 tabs 12/01/20 Unknown Rx cholecalciferol (vitamin D3) 50 50 mcg PO DAILY 07/26/23 Unknown History mcg (2,000 unit) capsule cyanocobalamin (vitamin B-12) 1,000 mcg PO DAILY 07/26/23 Unknown History 1,000 mcg capsule [id number] 300 mcg-K 60 1 tab PO DAILY supplement 10/18/23 Unknown History mcg-lycop 600 mcg-lutein 300 mcg tablet nitroglycerin 0.4 mg sublingual 0.4 mg sublingual Q5M PRN chest 01/30/24 Unknown Rx tablet pain #25 tabs carvedilol 6.25 mg tablet 6.25 mg PO BID 03/16/24 Unknown History zinc gluconate 50 mg tablet 50 mg PO DAILY 04/17/24 Unknown History potassium chloride 20 mEq 40 meq (2 x 20 mEq) PO BID #360 09/13/24 Unknown Rx tablet,extended release TABLETS finasteride 5 mg tablet 5 mg PO QDAY 11/14/24 Unknown History lisinopril 20 mg tablet 20 mg PO QDAY 11/14/24 Unknown History tamsulosin 0.4 mg capsule 0.4 mg PO BID prostate 11/14/24 Unknown History rivaroxaban 20 mg tablet 20 mg PO QHS blood thinner 11/15/24 Unknown History Allergy/AdvReac Type Severity Reaction Status Date / Time metoprolol AdvReac Intermediate Succinate Verified 11/15/24 13:43 50 mg_ Dizzy and lightheaded Family History Mother CVA (cerebral vascular accident) Hypertension Surgical History (Updated 11/15/24 @ 14:09 by Camelia Gutiérrez) History of cardiac catheterization Hx of total hip arthroplasty History of left heart catheterization (LHC) (~03/09/22) History of right and left heart catheterization (03/14/19) History of bilateral inguinal hernia repair History of lumbar laminectomy Social History household members: spouse pets and animals: Yes pets and animals: cat(s) and dog(s) Smoking Status: Current every day smoker tobacco type: cigarettes and cigars Tobacco: How many years used: 50 second hand exposure: Yes alcohol intake: current alcohol intake frequency: a few times a week substance use type: does not use Audit: Pertinent Findings Pertinent Findings EKG Perinent findings: Rate controlled A fib Stress test pertinent findings: 1. Pharmacologic (Regadenoson) evaluation 2. Peak pharmacologic ECG with no ischemic changes. 3. Baseline atrial fibrillation. 5. Rest and stress SPECT Cardiolite nuclear imaging demonstrate relative uniform tracer uptake and myocardial perfusion appearing within normal limits. 6. The gated Cardiolite study reports an LVEF of 53% Echo (EF%) pertinent findings: EF of 50%, mild MR Additional pertinent findings: Holter predates cardiac tests Pt saw patient care technician instructor for preop clearance and cardiologists recommendations were as follows: - Obtain pharmacologic nuclear stress test to clear for surgical intervention due to the patient's complaint of chest pain. - Will obtain pharmacologic nuclear stress test results if there is no significant ischemia the patient will be able to be cleared for surgical intervention on November 28. Recommendation Anesthesia Recommendation Anesthesia recommendation: F/U recommended (Gas Leak Inspector stress test for preop clearance) Follow up Details Cadiac/Pulmonary Imaging Recommendation: Yes Cadiac/Pulmonary Imaging Rec Details: Stress test (recommended by patient care technician instructor at 11/14/24 patient care technician instructor visit)
--- NOTE | 2024-11-19 18:30 | PAT.ANESEVAL ---
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 When Was Last Pacemaker Check QUESTION #4 FULL TEXT: You/Your Family Experience fever (hyperthermia) with Anesthesia Last Oral Intake Last Oral intake: Last Oral Intake NPO since Meds taken in AM with sips of water? Meds patient instructed to take am of surgery PONV PONV - auto service dispatcher: PONV - auto service dispatcher Female No 11/15/24 13:54 HX of Motion Sickness No 11/15/24 13:54 HX of N/V After Surgery No 11/15/24 13:54 Non-Smoker No 11/15/24 13:54 Duration of Surgery greater Yes 11/15/24 13:54 than 60 minutes Number of Risk Factors 1 11/15/24 13:54 PONV Score Low Risk 11/15/24 13:54 Height & Weight Height & Weight: Anesthesia: Height & Weight Height 6 ft 10/25/24 20:56 Respiratory Assessment Respiratory Assessment - auto service dispatcher: Respiratory Tract Infection Hx - auto service dispatcher Hx Respiratory Tract Infection No 11/15/24 13:54 STOP Sleep Apnea STOP Sleep Apnea - auto service dispatcher: STOP Sleep Apnea - auto service dispatcher Hx Hypertension Yes: NOT WELL CONTROLLED AT 11/15/24 13:54 THIS TIME [address] PT[address] DR WEISS AWARE Hx Sleep Apnea No 11/15/24 13:54 CPAP No 08/01/19 12:47 BIPAP Do you snore loudly (louder No 11/15/24 13:54 than talking or can be heard Do you often feel tired/ No 11/15/24 13:54 fatigued/ sleepy during daytime? Has anyone observed you stop No 11/15/24 13:54 breathing during sleep? STOP Results Negative 11/15/24 13:54 QUESTION #5 FULL TEXT : Do you snore loudly (louder than talking or can be heard through closed doors)? 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 Specify any problems Hx of Preganancy in last 3 N/A 11/15/24 13:54 Months Nurse Filling Out Transfusion DSCHRIBER 11/15/24 13:54 & Questions: Date: 11/15/24 11/15/24 13:54 Time: 13:57 11/15/24 13:54 Patient unable to answer at this time (ie. confused, unrespo /Reproduction History /Reproductive History - auto service dispatcher: /Reproductive Hx- auto service dispatcher Hx Now No 11/15/24 13:54 Gestational Age (in weeks): EDC: Hx Hx Para Hx Section SAB No 11/15/24 13:54 PFSH Medical History (Updated 11/15/24 @ 14:09 by Camelia Gutiérrez) Wears hearing aid Wears glasses Wears dentures Depression Alcohol use Prostate disease High cholesterol Syncope History of IBS History of echocardiogram History of Holter monitoring History of stress test Cardiology follow-up encounter History of heart attack Smoker Dizziness Hypokalemia Syncope Paroxysmal atrial fibrillation Nonischemic cardiomyopathy Essential hypertension Atherosclerosis of [place] coronary artery of [place] heart without angina pectoris Cerebrovascular accident (CVA) GERD (gastroesophageal reflux disease) Osteoarthritis PTSD (post-traumatic stress disorder) Pleural effusion, right COPD with asthma History of cardioversion (06/27/19) Pre-operative cardiovascular examination, left ventricular ejection fraction < 35% Nonrheumatic mitral (valve) insufficiency Fatigue Tobacco use COPD (chronic obstructive pulmonary disease) Osteoarthritis Hyperlipidemia Systolic congestive heart failure Cardiomyopathy Orthopnea Chest pain Edema Shortness of breath Dyspnea on exertion Atrial fibrillation Home Medications ?Medication ?Instructions ?Recorded ?Last Taken ?Type duloxetine 60 mg capsule,delayed 60 mg PO DAILY PTSD 02/14/19 03/14/19 History release atorvastatin 40 mg tablet 40 mg PO QHS #90 tabs 12/01/20 Unknown Rx cholecalciferol (vitamin D3) 50 50 mcg PO DAILY 07/26/23 Unknown History mcg (2,000 unit) capsule cyanocobalamin (vitamin B-12) 1,000 mcg PO DAILY 07/26/23 Unknown History 1,000 mcg capsule [id number] 300 mcg-K 60 1 tab PO DAILY supplement 10/18/23 Unknown History mcg-lycop 600 mcg-lutein 300 mcg tablet nitroglycerin 0.4 mg sublingual 0.4 mg sublingual Q5M PRN chest 01/30/24 Unknown Rx tablet pain #25 tabs carvedilol 6.25 mg tablet 6.25 mg PO BID 03/16/24 Unknown History zinc gluconate 50 mg tablet 50 mg PO DAILY 04/17/24 Unknown History potassium chloride 20 mEq 40 meq (2 x 20 mEq) PO BID #360 09/13/24 Unknown Rx tablet,extended release TABLETS finasteride 5 mg tablet 5 mg PO QDAY 11/14/24 Unknown History lisinopril 20 mg tablet 20 mg PO QDAY 11/14/24 Unknown History tamsulosin 0.4 mg capsule 0.4 mg PO BID prostate 11/14/24 Unknown History rivaroxaban 20 mg tablet 20 mg PO QHS blood thinner 11/15/24 Unknown History Allergy/AdvReac Type Severity Reaction Status Date / Time metoprolol AdvReac Intermediate Succinate Verified 11/15/24 13:43 50 mg_ Dizzy and lightheaded Family History Mother CVA (cerebral vascular accident) Hypertension Surgical History (Updated 11/15/24 @ 14:09 by Camelia Gutiérrez) History of cardiac catheterization Hx of total hip arthroplasty History of left heart catheterization (LHC) (~03/09/22) History of right and left heart catheterization (03/14/19) History of bilateral inguinal hernia repair History of lumbar laminectomy Social History household members: spouse pets and animals: Yes pets and animals: cat(s) and dog(s) Smoking Status: Current every day smoker tobacco type: cigarettes and cigars Tobacco: How many years used: 50 second hand exposure: Yes alcohol intake: current alcohol intake frequency: a few times a week substance use type: does not use Audit: Pertinent Findings HISTORY of Pertinent Findings History of Pertinent Findings: EKG Pertinent Findings EKG Perinent findings Rate controlled A fib 11/16/24 16:08 Stress Test Pertinent Findings Stress test pertinent findings 1. Pharmacologic ( 11/16/24 16:08 Regadenoson) evaluation 2. Peak pharmacologic ECG with no ischemic changes. 3. Baseline atrial fibrillation. 5. Rest and stress SPECT Cardiolite nuclear imaging demonstrate relative uniform tracer uptake and myocardial perfusion appearing within normal limits. 6. The gated Cardiolite study reports an LVEF of 53% Echo Pertinent Findings Echo (EF%) pertinent findings EF of 50%, mild MR 11/16/24 16:08 Additional Pertinent Findings Additional pertinent findings Holter predates cardiac 11/16/24 16:14 tests Pt saw webmethods consultant for preop clearance and cardiologists recommendations were as follows: - Obtain pharmacologic nuclear stress test to clear for surgical intervention due to the patient's complaint of chest pain. - Will obtain pharmacologic nuclear stress test results if there is no significant ischemia the patient will be able to be cleared for surgical intervention on November 28. Recommendation Anesthesia Recommendation Anesthesia recommendation: F/U recommended (need stress test as recommended by [employer] consultant for surgical clearance)
--- NOTE | 2024-12-05 11:08 | PAT.ANESEVAL ---
Pre-Assessment Diagnosis/Proposed Procedure Planned Operative Procedure(s): TURP Anesthesia History Anesthesia History - head of data: Anesthesia History - head of data Hx Hospitalization No 11/15/24 13:54 Any Problems With Anesthesia No 11/15/24 13:54 Cholinesterase deficiency No 11/15/24 13:54 You/Your Family Experience No 11/15/24 13:54 fever (hyperthermia) with Relationship Recent Exposure to Contagious No 08/01/19 08:50 Disease Does patient have nerve No 11/15/24 13:54 stimulator Patient instructed to have device shut off --Does patient have Pacemaker or ICD? When Was Last Pacemaker Check QUESTION #4 FULL TEXT: You/Your Family Experience fever (hyperthermia) with Anesthesia Last Oral Intake Last Oral intake: Last Oral Intake NPO since Meds taken in AM with sips of water? Meds patient instructed to take am of surgery PONV PONV - head of data: PONV - head of data Female No 11/15/24 13:54 HX of Motion Sickness No 11/15/24 13:54 HX of N/V After Surgery No 11/15/24 13:54 Non-Smoker No 11/15/24 13:54 Duration of Surgery greater Yes 11/15/24 13:54 than 60 minutes Number of Risk Factors 1 11/15/24 13:54 PONV Score Low Risk 11/15/24 13:54 Height & Weight Height & Weight: Anesthesia: Height & Weight Height 6 ft 11/14/24 10:20 Respiratory Assessment Respiratory Assessment - head of data: Respiratory Tract Infection Hx - head of data Hx Respiratory Tract Infection No 11/15/24 13:54 STOP Sleep Apnea STOP Sleep Apnea - head of data: STOP Sleep Apnea - head of data Hx Hypertension Yes: NOT WELL CONTROLLED AT 11/15/24 13:54 THIS TIME PER PT. DR WEISS AWARE Hx Sleep Apnea No 11/15/24 13:54 CPAP No 08/01/19 12:47 BIPAP Do you snore loudly (louder No 11/15/24 13:54 than talking or can be heard Do you often feel tired/ No 11/15/24 13:54 fatigued/ sleepy during daytime? Has anyone observed you stop No 11/15/24 13:54 breathing during sleep? STOP Results Negative 11/15/24 13:54 QUESTION #5 FULL TEXT : Do you snore loudly (louder than talking or can be heard through closed doors)? 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 Specify any problems Hx of Preganancy in last 3 N/A 11/15/24 13:54 Months Nurse Filling Out Transfusion DSCHRIBER 11/15/24 13:54 & Questions: Date: 11/15/24 11/15/24 13:54 Time: 13:57 11/15/24 13:54 Patient unable to answer at this time (ie. confused, unrespo /Reproduction History /Reproductive History - head of data: /Reproductive Hx- head of data Hx Now No 11/15/24 13:54 Gestational Age (in weeks): EDC: Hx Hx Para Hx Section SAB No 11/15/24 13:54 PFSH Medical History (Updated 11/27/24 @ 08:35 by Sophia Alves) Wears hearing aid Wears glasses Wears dentures Depression Alcohol use Prostate disease High cholesterol Syncope History of IBS History of echocardiogram History of Holter monitoring History of stress test Cardiology follow-up encounter History of heart attack Smoker Dizziness Hypokalemia Syncope Paroxysmal atrial fibrillation Nonischemic cardiomyopathy Essential hypertension Atherosclerosis of [place] coronary artery of [place] heart without angina pectoris Cerebrovascular accident (CVA) GERD (gastroesophageal reflux disease) Osteoarthritis PTSD (post-traumatic stress disorder) Pleural effusion, right COPD with asthma History of cardioversion (06/27/19) Pre-operative cardiovascular examination, left ventricular ejection fraction < 35% Nonrheumatic mitral (valve) insufficiency Fatigue Tobacco use COPD (chronic obstructive pulmonary disease) Osteoarthritis Hyperlipidemia Systolic congestive heart failure Cardiomyopathy Orthopnea Chest pain Edema Shortness of breath Dyspnea on exertion Atrial fibrillation Home Medications ?Medication ?Instructions ?Recorded ?Last Taken ?Type duloxetine 60 mg capsule,delayed 60 mg PO DAILY PTSD 02/14/19 03/14/19 History release atorvastatin 40 mg tablet 40 mg PO QHS #90 tabs 12/01/20 Unknown Rx cholecalciferol (vitamin D3) 50 50 mcg PO DAILY 07/26/23 Unknown History mcg (2,000 unit) capsule cyanocobalamin (vitamin B-12) 1,000 mcg PO DAILY 07/26/23 Unknown History 1,000 mcg capsule [id number] 300 mcg-K 60 1 tab PO DAILY supplement 10/18/23 Unknown History mcg-lycop 600 mcg-lutein 300 mcg tablet nitroglycerin 0.4 mg sublingual 0.4 mg sublingual Q5M PRN chest 01/30/24 Unknown Rx tablet pain #25 tabs carvedilol 6.25 mg tablet 6.25 mg PO BID 03/16/24 Unknown History zinc gluconate 50 mg tablet 50 mg PO DAILY 04/17/24 Unknown History potassium chloride 20 mEq 40 meq (2 x 20 mEq) PO BID #360 09/13/24 Unknown Rx tablet,extended release TABLETS finasteride 5 mg tablet 5 mg PO QDAY 11/14/24 Unknown History lisinopril 20 mg tablet 20 mg PO QDAY 11/14/24 Unknown History tamsulosin 0.4 mg capsule 0.4 mg PO BID prostate 11/14/24 Unknown History rivaroxaban 20 mg tablet 20 mg PO QHS blood thinner 11/15/24 Unknown History Allergy/AdvReac Type Severity Reaction Status Date / Time metoprolol AdvReac Intermediate Succinate Verified 12/05/24 11:07 50 mg_ Dizzy and lightheaded Family History Mother CVA (cerebral vascular accident) Hypertension Brother Heart disease Surgical History History of cardiac catheterization Hx of total hip arthroplasty History of left heart catheterization (LHC) (~03/09/22) History of right and left heart catheterization (03/14/19) History of bilateral inguinal hernia repair History of lumbar laminectomy Social History (Updated 11/27/24 @ 08:38 by Sophia Alves) household members: spouse pets and animals: Yes pets and animals: cat(s) and dog(s) Smoking Status: Current every day smoker tobacco type: cigarettes and cigars Tobacco: How many years used: 50 second hand exposure: Yes quit status: has quit before alcohol intake: current alcohol intake frequency: a few times a week substance use type: does not use Audit: Pertinent Findings HISTORY of Pertinent Findings History of Pertinent Findings: EKG Pertinent Findings EKG Perinent findings Rate controlled A fib 11/16/24 16:08 Stress Test Pertinent Findings Stress test pertinent findings 1. Pharmacologic ( 11/16/24 16:08 Regadenoson) evaluation 2. Peak pharmacologic ECG with no ischemic changes. 3. Baseline atrial fibrillation. 5. Rest and stress SPECT Cardiolite nuclear imaging demonstrate relative uniform tracer uptake and myocardial perfusion appearing within normal limits. 6. The gated Cardiolite study reports an LVEF of 53% Echo Pertinent Findings Echo (EF%) pertinent findings EF of 50%, mild MR 11/16/24 16:08 Additional Pertinent Findings Additional pertinent findings Holter predates cardiac 11/16/24 16:14 tests Pt saw finish repairer for preop clearance and cardiologists recommendations were as follows: - Obtain pharmacologic nuclear stress test to clear for surgical intervention due to the patient's complaint of chest pain. - Will obtain pharmacologic nuclear stress test results if there is no significant ischemia the patient will be able to be cleared for surgical intervention on November 28. Pertinent Findings Stress test pertinent findings: 12/03/2024. No evidence of ischemia or infarction. EF 55%. Recommendation Anesthesia Recommendation Anesthesia recommendation: OPTIMIZED for anesthesia
--- NOTE | 2024-12-05 11:30 | PAT.ANESEVAL ---
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 When Was Last Pacemaker Check QUESTION #4 FULL TEXT: You/Your Family Experience fever (hyperthermia) with Anesthesia Last Oral Intake Last Oral intake: Last Oral Intake NPO since Meds taken in AM with sips of water? Meds patient instructed to take am of surgery PONV PONV - vocational rehabilitation supervisor: PONV - vocational rehabilitation supervisor Female No 12/05/24 11:22 HX of Motion Sickness No 12/05/24 11:22 HX of N/V After Surgery No 12/05/24 11:22 Non-Smoker No 12/05/24 11:22 Duration of Surgery greater Yes 12/05/24 11:22 than 60 minutes Number of Risk Factors 1 12/05/24 11:22 PONV Score Low Risk 12/05/24 11:22 Height & Weight Height & Weight: Anesthesia: Height & Weight Height 6 ft 11/14/24 10:20 Respiratory Assessment Respiratory Assessment - vocational rehabilitation supervisor: Respiratory Tract Infection Hx - vocational rehabilitation supervisor Hx Respiratory Tract Infection No 12/05/24 11:22 STOP Sleep Apnea STOP Sleep Apnea - vocational rehabilitation supervisor: STOP Sleep Apnea - vocational rehabilitation supervisor Hx Hypertension Yes: UP AND DOWN PER PATIENT 12/05/24 11:22 Hx Sleep Apnea No 12/05/24 11:22 CPAP No 12/05/24 11:22 BIPAP Do you snore loudly (louder No 12/05/24 11:22 than talking or can be heard Do you often feel tired/ Yes 12/05/24 11:22 fatigued/ sleepy during daytime? Has anyone observed you stop No 12/05/24 11:22 breathing during sleep? STOP Results Positive 12/05/24 11:22 QUESTION #5 FULL TEXT : Do you snore loudly (louder than talking or can be heard through closed doors)? Tobacco Use History Tobacco Use History - vocational rehabilitation supervisor: Tobacco Use History - vocational rehabilitation supervisor Tobacco Use Smoking Status Current every day smoker 12/05/24 11:22 Hx Tobacco Use Yes 12/05/24 11:22 Years Smoking Packs Smoked per Day Smoking Cessation Date was within the last 15 years Hx Smoking Cessation Date Hx Smoking Cessation Counseling Hematologic Medial History Hematologic Hx - vocational rehabilitation supervisor: Hematologic Medical Hx - medical examiner Hx of Blood Transfusion No 12/05/24 11:22 Hx of Transfusion in last 3 No 12/05/24 11:22 Months Date of Last Transfusion (if within last 3 months) Ever experience any problems No 12/05/24 11:22 with transfusion(s)? Specify any problems Hx of Preganancy in last 3 N/A 12/05/24 11:22 Months Nurse Filling Out Transfusion DSCHRIBER 12/05/24 11:22 & Questions: Date: 12/05/24 12/05/24 11:22 Time: 11:22 12/05/24 11:22 Patient unable to answer at this time (ie. confused, unrespo /Reproduction History /Reproductive History - vocational rehabilitation supervisor: /Reproductive Hx- vocational rehabilitation supervisor Hx Now No 12/05/24 11:22 Gestational Age (in weeks): EDC: Hx Hx Para Hx Section SAB No 12/05/24 11:22 PFSH Medical History Wears hearing aid Wears glasses Wears dentures Depression Alcohol use Prostate disease High cholesterol Syncope History of IBS History of echocardiogram History of Holter monitoring History of stress test Cardiology follow-up encounter History of heart attack Smoker Dizziness Hypokalemia Syncope Paroxysmal atrial fibrillation Nonischemic cardiomyopathy Essential hypertension Atherosclerosis of [place] coronary artery of [place] heart without angina pectoris Cerebrovascular accident (CVA) GERD (gastroesophageal reflux disease) Osteoarthritis PTSD (post-traumatic stress disorder) Pleural effusion, right COPD with asthma History of cardioversion (06/27/19) Pre-operative cardiovascular examination, left ventricular ejection fraction < 35% Nonrheumatic mitral (valve) insufficiency Fatigue Tobacco use COPD (chronic obstructive pulmonary disease) Osteoarthritis Hyperlipidemia Systolic congestive heart failure Cardiomyopathy Orthopnea Chest pain Edema Shortness of breath Dyspnea on exertion Atrial fibrillation Home Medications ?Medication ?Instructions ?Recorded ?Last Taken ?Type duloxetine 60 mg capsule,delayed 60 mg PO DAILY PTSD 05/22/19 06/19/19 History release atorvastatin 40 mg tablet 40 mg PO QHS #90 tabs 12/01/20 Unknown Rx cholecalciferol (vitamin D3) 50 50 mcg PO DAILY 07/26/23 Unknown History mcg (2,000 unit) capsule cyanocobalamin (vitamin B-12) 1,000 mcg PO DAILY 07/26/23 Unknown History 1,000 mcg capsule [id number] 300 mcg-K 60 1 tab PO DAILY supplement 10/18/23 Unknown History mcg-lycop 600 mcg-lutein 300 mcg tablet nitroglycerin 0.4 mg sublingual 0.4 mg sublingual Q5M PRN chest 01/30/24 Unknown Rx tablet pain #25 tabs carvedilol 6.25 mg tablet 6.25 mg PO BID 03/16/24 Unknown History zinc gluconate 50 mg tablet 50 mg PO DAILY 04/17/24 Unknown History potassium chloride 20 mEq 40 meq (2 x 20 mEq) PO BID #360 09/13/24 Unknown Rx tablet,extended release TABLETS finasteride 5 mg tablet 5 mg PO QDAY 11/14/24 Unknown History lisinopril 20 mg tablet 20 mg PO QDAY 11/14/24 Unknown History tamsulosin 0.4 mg capsule 0.4 mg PO BID prostate 11/14/24 Unknown History rivaroxaban 20 mg tablet 20 mg PO QHS blood thinner 11/15/24 Unknown History Allergy/AdvReac Type Severity Reaction Status Date / Time metoprolol AdvReac Intermediate Succinate Verified 12/05/24 11:07 50 mg_ Dizzy and lightheaded Family History Mother CVA (cerebral vascular accident) Hypertension Brother Heart disease Surgical History Hx of transurethral resection of prostate History of cardiac catheterization Hx of total hip arthroplasty History of left heart catheterization (LHC) (~03/09/22) History of right and left heart catheterization (03/14/19) History of bilateral inguinal hernia repair History of lumbar laminectomy Social History (Updated 11/27/24 @ 08:38 by Sophia Alves) household members: spouse pets and animals: Yes pets and animals: cat(s) and dog(s) Smoking Status: Current every day smoker tobacco type: cigarettes and cigars Tobacco: How many years used: 50 second hand exposure: Yes quit status: has quit before alcohol intake: current alcohol intake frequency: a few times a week substance use type: does not use Audit: Pertinent Findings HISTORY of Pertinent Findings History of Pertinent Findings: EKG Pertinent Findings EKG Perinent findings Rate controlled A fib 11/16/24 16:08 Stress Test Pertinent Findings Stress test pertinent findings 12/03/2024. No evidence of 12/05/24 11:09 ischemia or infarction. EF 55%. Stress test pertinent findings 1. Pharmacologic ( 11/16/24 16:08 Regadenoson) evaluation 2. Peak pharmacologic ECG with no ischemic changes. 3. Baseline atrial fibrillation. 5. Rest and stress SPECT Cardiolite nuclear imaging demonstrate relative uniform tracer uptake and myocardial perfusion appearing within normal limits. 6. The gated Cardiolite study reports an LVEF of 53% Echo Pertinent Findings Echo (EF%) pertinent findings EF of 50%, mild MR 11/16/24 16:08 Additional Pertinent Findings Additional pertinent findings Holter predates cardiac 11/16/24 16:14 tests Pt saw [facility] executive director for preop clearance and cardiologists recommendations were as follows: - Obtain pharmacologic nuclear stress test to clear for surgical intervention due to the patient's complaint of chest pain. - Will obtain pharmacologic nuclear stress test results if there is no significant ischemia the patient will be able to be cleared for surgical intervention on November 28. Recommendation Anesthesia Recommendation Anesthesia recommendation: OPTIMIZED for anesthesia
== END 2024-12-19 19:00 | disposition home or self-care (01) ==
LOC: SDC 08-07 15:58
PROVIDERS: Anesthesiology; Referring Provider Urology; Visit Provider Urology
DX: Z01.818 Encounter for other preprocedural examination (principal); I48.0 Paroxysmal atrial fibrillation
CPT/HCPCS: 36415; 80048; 80076; 85610; 85730